=== PATIENT | female | born 1980 | race Caucasian/White ===

== ENCOUNTER 2017-03-27 14:28 | Inpatient (IN) ==
[2017-03-27] MEDS ORDERED: Ondansetron 4 MG/2 ML VIAL IV ONE (14:36)
[2017-03-27] MEDS ORDERED: *HR* HYDROmorphone (PF) 1 MG/ML SYRINGE IV ONE (14:36)
[2017-03-27] MEDS ORDERED: Famotidine 20 MG/2 ML VIAL IVP ONE (14:37)
--- NOTE | 2017-03-27 14:41 | Emergency Department Note ---
Disposition Clinical Impression: Alcohol abuse Alcohol withdrawal Qualifiers: Complication of substance-induced condition: uncomplicated Qualified Code(s): F10.230 - Alcohol dependence with withdrawal, uncomplicated Abdominal pain Qualifiers: Abdominal location: unspecified location Qualified Code(s): R10.9 - Unspecified abdominal pain Disposition: Admitted As Inpatient Condition: Fair Referrals: NO,PCP [Primary Care Provider] - Forms: Work/School Release, ED Satisfaction Letter Time of Disposition: 15:42 Abdominal Pain HPI - General Chief Complaint: ED Abdominal Pain Stated Complaint: abd pain Time Seen by Provider: 03/27/17 14:30 Source: patient, EMS Mode of arrival: EMS Limitations: no limitations Nursing Notes Reviewed: Yes Vital Signs Reviewed: Yes - History of Present Illness HPI Narrative: Patient reports a 6 day history of upper abdominal pain. Associated nausea and vomiting. She states she has never had pain like this before. Mitz to drinking a half liter of vodka daily for the past 5 years. When she stops drinking she becomes very shaky. Pt Subjective Complaint: abdominal pain Onset (ago): day(s) Consistency: constant Location: epigastric Pain Severity: severe Pain Scale: 10 Quality: aching Radiation: none Migration to: no migration Improves with: nothing Worsens with: nothing Associated symptoms: Reports: nausea, vomiting Treatments prior to arrival: none - Related Data Previous Rx's Medication Instructions Recorded Buspirone HCl [Buspar] 10 mg PO BID #90 tab 08/27/16 HydrOXYzine Pamoate 25 mg PO TID PRN #90 capsule 08/27/16 Prazosin [Minipress] 1 mg PO HS #30 capsule 08/27/16 Allergies Allergy/AdvReac Type Severity Reaction Status Date / Time ibuprofen [From Motrin] Allergy Swelling Verified 03/04/16 22:31 of Lip/Tongue/Throat All systems ED: reviewed and negative except as stated. Constitutional: Reports: as per HPI Eyes: Reports: as per HPI ENT ED: Reports: as per HPI Cardiovascular: Reports: as per HPI Respiratory: Reports: as per HPI Gastrointestinal: Reports: abdominal pain, nausea, vomiting Genitourinary: Reports: as per HPI Musculoskeletal: Reports: as per HPI Integumentary: Reports: as per HPI Neurological: Reports: as per HPI Psychiatric: Reports: as per HPI Endocrine: Reports: as per HPI Hematological/Lymphatic: Reports: as per HPI Allergic/Immunologic: Reports: as per HPI Abdominal Pain PMH - Past Medical History Medical history: Reports: asthma, other Female Surgical History: Reports: other NUCLEAR ENGINEER history: Reports: no NUCLEAR ENGINEER history, bilateral tubal ligation Psychiatric history: Reports: anxiety, depression, prior suicide attempt, previous psychiatric hospitalization - Social History Smoking status: Heavy tobacco smoker Alcohol use: Reports: heavy, recent Drug use: Reports: none Physical Exam She has alcohol on her breath. Appears intoxicated - General Limitations: no limitations General appearance: alert, anxious - Head Head exam: atraumatic - Eye Eye exam: Present: normal appearance - ENT ENT exam: normal exam - Neck Neck exam: Present: normal inspection - Chest Chest inspection: Present: normal inspection, symmetric chest wall rise - Cardiovascular Cardiovascular exam: Present: tachycardia, normal heart sounds - Abdominal Exam Abdominal exam: Present: soft, tenderness (tender in the epigastrium without guarding or rebound), normal bowel sounds Abdominal tenderness: Absent: RUQ, RLQ - Rectal Exam Rectal exam: Present: deferred - Extremities Exam Extremities exam: Present: normal inspection - Neurological Exam Neurological exam: Present: alert, oriented X3, CN II-XII intact - Psychiatric Psychiatric exam: Present: anxious - Skin Skin exam: Present: warm, dry, intact Course Course Narrative: Patient presents with epigastric pain. She has a long-standing history of alcohol abuse. She admits to being an alcoholic. The differential diagnosis includes such as alcohol-induced gastritis, peptic ulcer disease, pancreatitis, colic. Workup initiated - Reevaluation(s) Reevaluation #1: Patient resting more comfortably. She requests "something for alcohol withdrawal." Valium ordered Reevaluation #2: reassessed. She states she feels as if she is going to go through alcohol withdrawal and does not want to go home "go through withdrawals alone." She lives at home alone. She continues to have abdominal pain. I will request admission to the medicine service Reevaluation #3: Dr. Meade accepts admission to the medicine service Vital Signs Temperature 98.8 F 03/27/17 14:29 Pulse Rate 118 03/27/17 14:29 Respiratory Rate 18 03/27/17 14:29 Blood Pressure 142/102 03/27/17 14:29 O2 Sat by Pulse Oximetry 93 03/27/17 14:29 Temperature 98.8 F 03/27/17 14:29 Pulse Rate 118 03/27/17 14:29 Respiratory Rate 18 03/27/17 14:29 Blood Pressure 142/102 03/27/17 14:29 O2 Sat by Pulse Oximetry 93 03/27/17 14:29 Oxygen Delivery Oxygen Delivery Room Air Abdominal Pain - Lab Data Lab results reviewed: Yes I reviewed the patient's lab results. Result diagrams: 03/27/17 14:45 03/27/17 14:45 Lab Results 03/27/17 03/27/17 03/27/17 Range/Units 14:45 14:45 14:45 WBC 5.9 (4.3-11.1) K/mcL RBC 4.56 (3.82-4.97) M/mcL Hgb 14.6 (11.5-15.4) g/dL Hct 43.1 (35.3-44.9) % MCV 94.5 (83.0-100.0) fL MCH 32.0 (28.0-33.3) pg MCHC 33.9 (31.6-35.5) g/dL RDW 12.7 (11.5-14.5) % Plt Count 217 (140-400) K/mcL MPV 9.4 (9.4-12.4) fL Immature Gran % 0.2 (0-4) % Seg Neutrophils % 34.7 % Lymphocytes % 53.7 % Monocytes % 10.1 % Eosinophils % 0.8 % Basophils % 0.5 % Neutrophils # 2.1 (1.6-8.9) K/mcL Lymphocytes # 3.2 (0.6-4.6) K/mcL Monocytes # 0.6 (0.0-1.3) K/mcL Eosinophils # 0.1 (0.0-0.6) K/mcL Basophils # 0.0 (0.0-0.2) K/mcL PT 10.5 (9.4-12.1) Seconds INR 1.0 Sodium (136-145) mEq/L Potassium (3.5-4.5) mEq/L Chloride (98-109) mEq/L Carbon Dioxide (19-29) mEq/L BUN (7-20) mg/dL Creatinine (0.57-1.11) mg/dL Est GFR ( Amer) (> 60) Est GFR (Non-Af Amer) (> 60) BUN/Creatinine Ratio (6-26) Glucose (70-99) mg/dL Calculated Osmolality (280-300) Calcium (8.6-10.8) mg/dL Magnesium (1.6-2.6) mg/dL Total Bilirubin (0.2-1.2) mg/dL AST (5-34) Units/L ALT (0-55) Units/L Alkaline Phosphatase (38-126) Units/L Serum Total Protein (6.0-8.3) g/dL Albumin (3.5-5.0) g/dL Globulin (2.4-3.5) g/dL Albumin/Globulin Ratio (1.1-2.2) Amylase (25-125) Units/L Lipase (8-78) Units/L Serum , Qual (Negative) Urine Color Yellow (Yellow) Urine Clarity Clear (Clear) Urine pH 6.5 (5.0-8.0) pH Units Ur Specific Abbot 1.007 L (1.010-1.025) Urine Protein 30 H (Neg-Trace) mg/dL Urine Glucose (UA) Normal (Normal) mg/dL Urine Ketones Negative (Negative) mg/dL Urine Blood Negative (Negative) Urine Nitrite Negative (Negative) Urine Bilirubin Negative (Negative) Urine Urobilinogen Normal (Normal) mg/dL Ur Leukocyte Esterase Negative (Negative) Urine Microscopic RBC 0-3 (0-3) per hpf Urine Microscopic WBC 0-3 (0-3) per hpf Ur Squamous Epith Cells Many H (None-Few) per lpf Urine Bacteria None Seen (None-Few) per hpf Hyaline Casts None Seen (None-Few) per lpf 03/27/17 03/27/17 Range/Units 14:45 14:45 WBC (4.3-11.1) K/mcL RBC (3.82-4.97) M/mcL Hgb (11.5-15.4) g/dL Hct (35.3-44.9) % MCV (83.0-100.0) fL MCH (28.0-33.3) pg MCHC (31.6-35.5) g/dL RDW (11.5-14.5) % Plt Count (140-400) K/mcL MPV (9.4-12.4) fL Immature Gran % (0-4) % Seg Neutrophils % % Lymphocytes % % Monocytes % % Eosinophils % % Basophils % % Neutrophils # (1.6-8.9) K/mcL Lymphocytes # (0.6-4.6) K/mcL Monocytes # (0.0-1.3) K/mcL Eosinophils # (0.0-0.6) K/mcL Basophils # (0.0-0.2) K/mcL PT (9.4-12.1) Seconds INR Sodium 143 (136-145) mEq/L Potassium 3.2 L (3.5-4.5) mEq/L Chloride 112 H (98-109) mEq/L Carbon Dioxide 17 L (19-29) mEq/L BUN 14 (7-20) mg/dL Creatinine 0.72 (0.57-1.11) mg/dL Est GFR ( Amer) > 60 (> 60) Est GFR (Non-Af Amer) > 60 (> 60) BUN/Creatinine Ratio 19 (6-26) Glucose 138 H (70-99) mg/dL Calculated Osmolality 299 (280-300) Calcium 8.0 L (8.6-10.8) mg/dL Magnesium 2.3 (1.6-2.6) mg/dL Total Bilirubin 0.4 (0.2-1.2) mg/dL AST 72 H (5-34) Units/L ALT 51 (0-55) Units/L Alkaline Phosphatase 89 (38-126) Units/L Serum Total Protein 7.4 (6.0-8.3) g/dL Albumin 3.7 (3.5-5.0) g/dL Globulin 3.7 H (2.4-3.5) g/dL Albumin/Globulin Ratio 1.0 L (1.1-2.2) Amylase 41 (25-125) Units/L Lipase 114 H (8-78) Units/L Serum , Qual Negative (Negative) Urine Color (Yellow) Urine Clarity (Clear) Urine pH (5.0-8.0) pH Units Ur Specific Abbot (1.010-1.025) Urine Protein (Neg-Trace) mg/dL Urine Glucose (UA) (Normal) mg/dL Urine Ketones (Negative) mg/dL Urine Blood (Negative) Urine Nitrite (Negative) Urine Bilirubin (Negative) Urine Urobilinogen (Normal) mg/dL Ur Leukocyte Esterase (Negative) Urine Microscopic RBC (0-3) per hpf Urine Microscopic WBC (0-3) per hpf Ur Squamous Epith Cells (None-Few) per lpf Urine Bacteria (None-Few) per hpf Hyaline Casts (None-Few) per lpf - Radiology Data Radiology results reviewed: Yes I reviewed the patient's radiology results. - EKG Data EKG attestation: Yes I reviewed and interpreted this EKG. EKG results narrative: Sinus rhythm rate 98 when necessary 173 QRS 85 QT/QTC 339/394. No acute ST segment elevation. Compared to previous dated 08/24/16
[2017-03-27 14:57] LABS: Bilirubin,Urine Negative (Negative); Blood,Urine Negative (Negative); Clarity,Urine Clear (Clear); Color,Urine Yellow (Yellow); Glucose,Urine (UA) Normal (Normal); Ketones,Urine Negative (Negative); Leukocyte Esterase,Urine Negative (Negative); Nitrite,Urine Negative (Negative); PH,Urine 6.5 pH Units (5.0-8.0); Protein,Urine 30 mg/dL (Neg-Trace); Specific Gravity,Urine 1.007 (1.010-1.025); Urobilinogen,Urine Normal (Normal)
[2017-03-27 14:59] LABS: Bacteria,Urine None Seen per hpf (None-Few); Hyaline Casts,Urine None Seen per lpf (None-Few); RBC,Urine 0-3 per hpf (0-3); Squamous Epithelial Cell,Urine Many per lpf (None-Few); WBC,Urine 0-3 per hpf (0-3)
[2017-03-27 15:02] LABS: Basophils % 0.5 %; Eosinophils # 0.1 K/mcL (0.0-0.6); Eosinophils % 0.8 %; Hematocrit 43.1 % (35.3-44.9); Hemoglobin 14.6 g/dL (11.5-15.4); Immature Granulocytes % 0.2 % (0-4); Lymphocytes # 3.2 K/mcL (0.6-4.6); Lymphocytes % 53.7 %; Mean Corpuscular HGB Conc 33.9 g/dL (31.6-35.5); Mean Corpuscular Volume 94.5 fL (83.0-100.0); Mean Platelet Volume 9.4 fL (9.4-12.4); Monocytes # 0.6 K/mcL (0.0-1.3); Monocytes % 10.1 %; Neutrophils # 2.1 K/mcL (1.6-8.9); Platelet Count 217 K/mcL (140-400); Red Blood Count 4.56 M/mcL (3.82-4.97); Red Cell Distribution Width 12.7 % (11.5-14.5); Segmented Neutrophils % 34.7 %
[2017-03-27 15:03] LABS: Prothrombin Time 10.5 Seconds (9.4-12.1)
[2017-03-27 15:19] LABS: Alanine Aminotransferase 51 Units/L (0-55); Albumin 3.7 g/dL (3.5-5.0); Alkaline Phosphatase 89 Units/L (38-126); Amylase 41 Units/L (25-125); Aspartate Amino Transferase 72 Units/L (5-34); BUN/Creatinine Ratio 19 (6-26); Bilirubin,Total 0.4 mg/dL (0.2-1.2); Blood Urea Nitrogen 14 mg/dL (7-20); Carbon Dioxide 17 mEq/L (19-29); Chloride 112 mEq/L (98-109); Globulin 3.7 g/dL (2.4-3.5); Glucose 138 mg/dL (70-99); Lipase 114 Units/L (8-78); Magnesium 2.3 mg/dL (1.6-2.6); Osmolality,Calculated 299 (280-300); Potassium 3.2 mEq/L (3.5-4.5); Sodium 143 mEq/L (136-145); Total Protein 7.4 g/dL (6.0-8.3); eGFR For African Americans > 60 (> 60); eGFR For Non-African Americans > 60 (> 60)
[2017-03-27] MEDS ORDERED: diazePAM 10 MG/2 ML SYRINGE IVP ONE (15:26)
[2017-03-27 15:54] LABS: Ethanol 273 mg/dL (0-10)
[2017-03-27] MEDS ORDERED: Naloxone 0.4 MG/ML INJ IVP PRN (16:24)
[2017-03-27] MEDS ORDERED: Ondansetron ODT 4 MG TAB.RAPDIS SL PRN (16:24)
[2017-03-27] MEDS ORDERED: *HR* LORazepam 2 MG/ML VIAL IVP PRN (16:24)
--- NOTE | 2017-03-27 17:43 | Internal Med History&Physical ---
<Marni Morelos - Last Filed: 03/27/17 18:17> Date of Encounter: 03/27/17 Time of Encounter: 17:42 Assessment and Plan (1) Abdominal pain Current visit: Yes Status: Acute that started day prior to admission. Lipase 114. ABD CT with layering sludge in the gallbladder, no radiographic evidence of gall stones or cholecystitis. Clear liquid diet, pain control, IV fluids, trend lipase Qualifiers: Abdominal location: unspecified location Qualified Code(s): R10.9 - Unspecified abdominal pain (2) Alcohol abuse Current visit: Yes Status: Acute reported drinking 1/2 liter vodka/day for the last 5 years. Last drink of day of admission. BAL 273. Monitor with CIWA (3) DVT prophylaxis Current visit: No Status: Acute heparin Internal Medicine - H&P: HPI Chief complaint: abdomina pain Admitted From: Home History of present illness: Ms. Sher is a 36 year old female with no significant PMH who presented to [facility] on 03/27/2017 with complaints of ABD and alcohol withdrawal. She was admitted for medically supervised alcohol withdrawal and further work-up and treatment of abdominal pain. Information obtained from chart review and patient report. She is acutely intoxicated and difficult to obtain information from. She tells me that last drank today but it wasn't much. Says she is having ABD pain. She is clearly intoxicated and unable to provide details. She endorses abdominal pain, RUQ that started yesterday, rates 10/10 and nothing helps or makes worse. No SOB, CP Past Med Surg Social Fam HX - Past Medical History Medical history: asthma, other Psychiatric history: anxiety, depression, prior suicide attempt, previous psychiatric hospitalization - Past Surgical History Surgical History: non-contributory, other - Social History Smoking Status: Heavy tobacco smoker Smokeless Tobacco Status: No Alcohol use: heavy, recent Drug use: none - Family History Maternal Grandmother Living Status: Hx Family Cancer: Yes (throat cancer) - Additional Family History Additional family history: reviewed and noncontributory Internal Medicine - H&P: Meds Multivit with Calcium,Iron,Min [One Daily Women's] 1 each PO DAILY 03/27/17 [ History] Potassium 99 mg PO DAILY 03/27/17 [History] Vitamin B Complex Vit C No.3 [B Complex with Vitamin C] 1 each PO DAILY [History] Allergies ibuprofen [From Motrin] Allergy (Verified 03/04/16 22:31) Swelling of Lip/Tongue/Throat All Systems PM: A 10-system review of systems was performed and is negative for pertinent findings except as documented above in the HPI. - Constitutional Constitutional: no chills, no fever(s), no night sweats - EENT Eyes: no change in vision, no discharge, no pain, no photophobia Ears: no ear discharge, no ear pain, no tinnitus Nose, mouth and throat: no dysphagia, no nasal discharge, no neck pain, no sore throat - Cardiovascular Cardiovascular ROS IM: no chest pain, no diaphoresis, no dyspnea, no lightheadedness, no palpitations, no syncope - Respiratory Respiratory: no cough, no dyspnea, no wheezing, no excessive phlegm production - Gastrointestinal Gastrointestinal: no diarrhea, no hematemesis, no hematochezia, no melena, no nausea, no vomiting - Genitourinary Genitourinary: no change in urinary stream, no dysuria, no flank pain, no hematuria - Musculoskeletal Musculoskeletal ROS IM: no numbness, no tingling - Integumentary Integumentary IM: no rash, no unusual bruising - Neurological Neurological ROS: no confusion, no convulsions, no focal weakness, no numbness, no tingling, no tremor(s) - Psychiatric Psychiatric: anxiety, difficulty concentrating - Hematologic/Lymphatic Hematologic/Lymphatic: no easy bruising - Constitutional Vitals: Temp Pulse Resp BP Pulse Ox 98.8 F 88 16 127/92 97 03/27/17 14:29 03/27/17 16:54 03/27/17 16:59 03/27/17 16:59 03/27/17 16:54 General appearance: Present: disheveled, A&O X 3 - Head Head exam: Present: atraumatic, normocephalic - Eye Eye exam: Present: PERRL, conjuntiva pink, sclera anicteric Pupils: Present: PERRL - Neck Neck exam general surgery: Present: supple, trachea midline. Absent: lymphadenopathy - Respiratory Respiratory exam: Present: CTAB. Absent: accessory muscle use, rales, rhonchi, wheezes - Cardiovascular Cardiovascular exam: Present: RRR, +S1, +S2. Absent: diastolic murmur, gallop, rubs, systolic murmur - GI/Abdominal GI/Abdominal exam: Present: normal bowel sounds, soft, tenderness, no peritoneal signs. Absent: distended Additional comments: LUQ tenderness - Extremities Exam Extremities exam: Present: warm, radial pulses palpable and symetrical. Absent : calf tenderness, cyanotic, pedal edema - Neurological Exam Neurological exam: Present: CN II-XII intact, oriented X3, no focal deficits. Absent: pronater drift, facial droop, speech deficit - Skin Skin exam: Present: dry, intact Internal Med - H&P Results - Labs CBC & Chem 7: 03/27/17 14:45 03/27/17 14:45 <Brandee Meade - Last Filed: 03/27/17 18:49> Date of Encounter: 03/27/17 Time of Encounter: 18:45 Internal Medicine - H&P: HPI History of present illness: Ms. Sher is a 36 year old female All Systems PM: A 10-system review of systems was performed and is negative for pertinent findings except as documented above in the HPI. - Constitutional Vitals: Temp Pulse Resp BP Pulse Ox 98.2 F 80 16 119/80 94 03/27/17 17:44 03/27/17 17:44 03/27/17 17:44 03/27/17 17:44 03/27/17 17:44 Internal Med - H&P Results - Labs CBC & Chem 7: 03/27/17 14:45 03/27/17 14:45 - Attending Attestation I examined this patient and my medical decision-making was reviewed with the nurse practitioner. I agree with the documented history of present illness, review of systems, past medical, surgical social and family histories and examination findings, disposition and treatment plan as described above except to any changes set forth below. 36-year-old female patient with history of alcohol abuse presented to the ER with acute abdominal pain. This has been going on for about 6 days now. Pain is located in the epigastric and umbilicus region. It feels like it is radiating deep into her. Associated with nausea and vomiting. She has never had similar kind of pain before. The patient was also trying to cut down her alcohol intake on her own and complains of tremors and shakes. Denies any fever or chills or night sweats. Denies any hematemesis. Blood work shows mild elevation in lipase. CT of the abdomen and pelvis shows biliary sludge but no pancreatic inflammation nor gallstones or signs of cholecystitis. Acute intractable abdominal pain in the epigastric region: Could be related to alcohol gastritis and esophagitis. Patient also has mild elevation in lipase and could be recovering from pancreatitis. Keep nothing by mouth. IV hydration. IV narcotic pain medications. High risk for complications. Antinausea medications as needed. Alcohol abuse and alcohol withdrawal: Monitor for signs of alcohol withdrawal. Place patient on CIWA protocol. magazine worker consult. This document has been at least partially created by Airtime recognition technology by Dr. Meade. Errors in grammar, wording or other phrases may exist. If errors are found after the documentation is signed, they will be addressed individually in the addendum section of this document when appropriate.
[2017-03-27] MEDS: 0.9 % Sodium Chloride 1,000 ML IVC SCH (18:35)
[2017-03-27] MEDS: Thiamine (B-1) 100 MG, Folic Acid 1 MG, MVI, adult with vitamin K 10 ML in 0.9 % Sodi... IVPB SCH (18:36)
[2017-03-27] MEDS ORDERED: Nicotine 21 MG PATCH.TD24 TD ONE ×2 (18:48)
[2017-03-27] MEDS: *HR* Morphine 2 MG/ML SYRINGE IVP PRN (18:56)
[2017-03-27] MEDS ORDERED: Chloraseptic Spray 177 ML BOTTLE MM PRN (20:13)
[2017-03-27] MEDS: Ondansetron 4 MG/2 ML VIAL IVP PRN (21:10)
[2017-03-27] MEDS: *HR* LORazepam 2 MG/ML VIAL IVP PRN (21:10)
[2017-03-28] MEDS: *HR* LORazepam 2 MG/ML VIAL IVP PRN ×4 (03:21→18:43)
[2017-03-28] MEDS: Ondansetron 4 MG/2 ML VIAL IVP PRN (03:22)
[2017-03-28 06:46] LABS: Basophils % 0.8 %; Eosinophils # 0.1 K/mcL (0.0-0.6); Eosinophils % 1.3 %; Immature Granulocytes % 0.3 % (0-4); Lymphocytes # 1.9 K/mcL (0.6-4.6); Lymphocytes % 47.6 %; Mean Corpuscular HGB Conc 33.3 g/dL (31.6-35.5); Mean Corpuscular Hemoglobin 31.6 pg (28.0-33.3); Mean Corpuscular Volume 94.7 fL (83.0-100.0); Mean Platelet Volume 9.3 fL (9.4-12.4); Monocytes # 0.4 K/mcL (0.0-1.3); Monocytes % 9.4 %; Neutrophils # 1.6 K/mcL (1.6-8.9); Platelet Count 144 K/mcL (140-400); Red Blood Count 4.12 M/mcL (3.82-4.97); Red Cell Distribution Width 12.6 % (11.5-14.5); Segmented Neutrophils % 40.6 %
[2017-03-28 06:59] LABS: Alanine Aminotransferase 46 Units/L (0-55); Albumin 3.4 g/dL (3.5-5.0); Alkaline Phosphatase 93 Units/L (38-126); Aspartate Amino Transferase 68 Units/L (5-34); BUN/Creatinine Ratio 18 (6-26); Blood Urea Nitrogen 14 mg/dL (7-20); Calcium 8.2 mg/dL (8.6-10.8); Carbon Dioxide 22 mEq/L (19-29); Chloride 111 mEq/L (98-109); Globulin 3.5 g/dL (2.4-3.5); Glucose 70 mg/dL (70-99); Osmolality,Calculated 295 (280-300); Potassium 4.2 mEq/L (3.5-4.5); Sodium 143 mEq/L (136-145); Total Protein 6.9 g/dL (6.0-8.3); eGFR For African Americans > 60 (> 60); eGFR For Non-African Americans > 60 (> 60)
[2017-03-28 07:01] LABS: Bilirubin,Total 0.8 mg/dL (0.2-1.2)
[2017-03-28] MEDS: 0.9 % Sodium Chloride 1,000 ML IVC SCH ×2 (09:24→22:30)
[2017-03-28] MEDS: Pantoprazole 40 MG VIAL IVP SCH (09:25)
[2017-03-28 10:18] LABS: Amphetamine Screen,Urine Negative ng/mL (Cutoff=1000); Barbiturate Screen,Urine Negative ng/mL (Cutoff=200); Benzodiazepines Screen,Urine Negative ng/mL (Cutoff=200); Cannabinoid Screen,Urine Negative ng/mL (Cutoff = 50); Cocaine Screen,Urine Negative ng/mL (Cutoff= 300); Opiate Screen,Urine Negative ng/mL (Cutoff=300); Phencyclidine Screen,Urine Negative ng/mL (Cutoff=25)
--- NOTE | 2017-03-28 11:21 | Internal Med Progress Note ---
<Rahul Lyle - Last Filed: 03/28/17 11:18> Date of Encounter: 03/28/17 Time of Encounter: 11:18 - Assessment and plan (1) Alcohol withdrawal Current Visit: Yes Status: Acute Assessment and plan: She had positive ETOH on admission. However can still have withdrawel if consuming large quanitities of ETOH. Currently on CIWA but I am worried she may worsen as she is quite tremulous and drinks a large amount of alcohol will add scheduled Librium Continue thiamine and folate. advise cessation. Continue with [facility]. continue to monitor closely. May need to increase Librium if not improving. May also consider adding clonidine as an adjuvant as well. Qualifiers: Complication of substance-induced condition: uncomplicated Qualified Code(s ): F10.230 - Alcohol dependence with withdrawal, uncomplicated (2) Alcohol abuse Current Visit: Yes Status: Acute Assessment and plan: as stated above. (3) Abdominal pain Current Visit: Yes Status: Acute Assessment and plan: resolved. Likely gastritis. No active bleeding or clinical indication to indicate GI bleed. CT unremarkable. Lipase mildly elevated. No need to repeat as her symptoms have resolved. Qualifiers: Abdominal location: unspecified location Qualified Code(s): R10.9 - Unspecified abdominal pain - Subjective Interval history: No major events overnight. PAtietn states she feels that she is withdrawing from alcohol. She states that she drinks about half a gallon of vodka daily. States she goes to [facility] 3 times a week but has " fallen off the wagon this week). She states her abdominal pain has resolved. She complains of having a loose bowel movement this AM. No blood or melena. No recent antibiotics. - Constitutional Vitals: Temp Pulse Resp BP Pulse Ox 99.2 F 87 16 135/88 96 03/28/17 11:12 03/28/17 11:12 03/28/17 11:12 03/28/17 11:12 03/28/17 11:12 General appearance: Present: disheveled, A&O X 3 - Head Head exam: Present: atraumatic, normocephalic - Eye Eye exam: Present: PERRL, conjuntiva pink, sclera anicteric Pupils: Present: PERRL - Neck Neck exam general surgery: Present: supple, trachea midline. Absent: lymphadenopathy - Respiratory Respiratory exam: Present: CTAB. Absent: accessory muscle use, rales, rhonchi, wheezes - Cardiovascular Cardiovascular exam: Present: RRR, +S1, +S2. Absent: diastolic murmur, gallop, rubs, systolic murmur - GI/Abdominal GI/Abdominal exam: Present: normal bowel sounds, soft, no peritoneal signs. Absent: distended, tenderness - Extremities Exam Extremities exam: Present: warm, radial pulses palpable and symetrical. Absent : calf tenderness, cyanotic, pedal edema - Neurological Exam Additional comments: tremulous - Skin Skin exam: Present: dry, intact Internal Medicine: Result - Labs CBC & Chem 7: 03/28/17 06:35 03/28/17 06:35 Labs: Short CBC 03/28/17 Range/Units 06:35 WBC 4.0 L (4.3-11.1) K/mcL Hgb 13.0 D (11.5-15.4) g/dL Hct 39.0 (35.3-44.9) % Plt Count 144 (140-400) K/mcL Neutrophils # 1.6 (1.6-8.9) K/mcL BMP 03/28/17 06:35 Sodium 143 Potassium 4.2 D Chloride 111 H Carbon Dioxide 22 BUN 14 Creatinine 0.78 Glucose 70 Calcium 8.2 L Liver Function 03/28/17 Range/Units 06:35 Total Bilirubin 0.8 D (0.2-1.2) mg/dL AST 68 H (5-34) Units/L ALT 46 (0-55) Units/L Alkaline Phosphatase 93 (38-126) Units/L Albumin 3.4 L (3.5-5.0) g/dL - ABG Interpretation ABG results: PT/INR, D-dimer PT 10.5 Seconds (9.4-12.1) 03/27/17 14:45 Consult Discharge Plan - Plan Referrals: Milad Schwartz MD [Non-Partnered Physician] - 04/08/17 1:00 pm (If you need to cancel your appt. please give a 24 hour notice. If you no show to this appt., you will be dismissed from the practice. Thank you) <Britton Perry - Last Filed: 04/28/17 19:20> Date of Encounter: 03/28/17 - Constitutional Vitals: Temp Pulse Resp BP Pulse Ox 98.5 F 83 16 145/94 96 03/28/17 15:54 03/28/17 15:54 03/28/17 15:54 03/28/17 15:54 03/28/17 15:54 Internal Medicine: Result - Labs CBC & Chem 7: 03/28/17 06:35 03/28/17 06:35 Labs: Short CBC 03/28/17 Range/Units 06:35 WBC 4.0 L (4.3-11.1) K/mcL Hgb 13.0 D (11.5-15.4) g/dL Hct 39.0 (35.3-44.9) % Plt Count 144 (140-400) K/mcL Neutrophils # 1.6 (1.6-8.9) K/mcL BMP 03/28/17 06:35 Sodium 143 Potassium 4.2 D Chloride 111 H Carbon Dioxide 22 BUN 14 Creatinine 0.78 Glucose 70 Calcium 8.2 L Liver Function 03/28/17 Range/Units 06:35 Total Bilirubin 0.8 D (0.2-1.2) mg/dL AST 68 H (5-34) Units/L ALT 46 (0-55) Units/L Alkaline Phosphatase 93 (38-126) Units/L Albumin 3.4 L (3.5-5.0) g/dL - ABG Interpretation ABG results: PT/INR, D-dimer PT 10.5 Seconds (9.4-12.1) 03/27/17 14:45 - Attending Attestation I examined this patient and my medical decision-making was reviewed with the Resident Physician, Dr. Lyle. I agree with the documented findings, disposition and treatment plan as described except to the extent set forth below. She reports nausea and vomiting. Continue alcohol withdrawal protocol. Start Librium 25 mg every 8 hours and taper every 48 hours. Zofran for nausea. Clear liquid diet. I suspect gastritis. On exam she appears tremulous heart is regular S1-S2. Lungs are clear. Abdomen is soft mildly tender.
[2017-03-28] MEDS ORDERED: Nicotine 21 MG PATCH.TD24 TD ONE ×2 (16:02→20:40)
[2017-03-28] MEDS: Thiamine (B-1) 100 MG, Folic Acid 1 MG, MVI, adult with vitamin K 10 ML in 0.9 % Sodi... IVPB SCH (17:37)
--- NOTE | 2017-03-28 17:42 | Electrocardiograph Report ---
[address] [address] Test Date: 2017-03-27 Pat Name: Domi Sher Department: 102 Room: 3A Gender: F Ginseng Farmer: [facility] : 1980 Requested By: Arnav Dixon Order Number: [id number] Reading MD: Marisa Mendez Measurements Intervals [place] Rate: 98 P: 64 MD: 173 QRS: 74 QRSD: 85 T: 72 QT: 339 QTc: 394 Interpretive Statements SINUS RHYTHM Electronically Signed On 03-28-2017 17:41:27 EDT by Marisa Mendez
[2017-03-29 03:44] LABS: Basophils % 0.8 %; Eosinophils # 0.1 K/mcL (0.0-0.6); Eosinophils % 2.3 %; Hematocrit 39.1 % (35.3-44.9); Hemoglobin 13.3 g/dL (11.5-15.4); Immature Granulocytes % 0.3 % (0-4); Lymphocytes % 49.6 %; Monocytes # 0.4 K/mcL (0.0-1.3); Monocytes % 8.9 %; Neutrophils # 1.5 K/mcL (1.6-8.9); Platelet Count 114 K/mcL (140-400); Red Blood Count 4.16 M/mcL (3.82-4.97); Red Cell Distribution Width 12.2 % (11.5-14.5); Segmented Neutrophils % 38.1 %
[2017-03-29] MEDS: *HR* Morphine 2 MG/ML SYRINGE IVP PRN (03:49)
[2017-03-29] MEDS: Ondansetron 4 MG/2 ML VIAL IVP PRN ×2 (03:49→20:15)
[2017-03-29 04:02] LABS: BUN/Creatinine Ratio 14 (6-26); Blood Urea Nitrogen 9 mg/dL (7-20); Carbon Dioxide 22 mEq/L (19-29); Chloride 108 mEq/L (98-109); Glucose 80 mg/dL (70-99); Magnesium 1.8 mg/dL (1.6-2.6); Osmolality,Calculated 284 (280-300); Potassium 3.4 mEq/L (3.5-4.5); Sodium 138 mEq/L (136-145); eGFR For African Americans > 60 (> 60); eGFR For Non-African Americans > 60 (> 60)
[2017-03-29] MEDS: Pantoprazole 40 MG VIAL IVP SCH (09:00)
[2017-03-29] MEDS: *HR* LORazepam 2 MG/ML VIAL IVP PRN ×3 (12:07→20:10)
--- NOTE | 2017-03-29 15:51 | Internal Med Progress Note ---
Date of Encounter: 03/29/17 Time of Encounter: 15:49 - Assessment and plan (1) Acute gastritis without bleeding Current Visit: Yes Status: Acute Assessment and plan: Zofran for nausea. Start Protonix oral. We will treat pain with acetaminophen. Qualifiers: Gastritis type: alcoholic Qualified Code(s): K29.20 - Alcoholic gastritis without bleeding (2) Tobacco abuse disorder Current Visit: Yes Status: Acute Assessment and plan: I have provided smoking cessation counseling. We will treat her with nicotine patch while in the hospital.. (3) Alcohol withdrawal Current Visit: No Status: Acute Assessment and plan: Alcohol withdrawal protocol per [facility]. Thiamine and folic acid. Continue with Librium taper. Patient is set up for inpatient alcohol rehabilitation when discharged from our hospital. Follow-up with professor of social work on Friday. Qualifiers: Complication of substance-induced condition: with unspecified complication Qualified Code(s): F10.239 - Alcohol dependence with withdrawal, unspecified (4) DVT prophylaxis Current Visit: No Status: Acute Assessment and plan: She is fairly immobile due to tremors, withdrawal and generalized deconditioning. We will use Lovenox prophylactically. (5) EtOH dependence Current Visit: No Status: Acute Assessment and plan: Plan for alcohol detox inpatient upon discharge from the hospital. Qualifiers: Substance use status: in withdrawal Complication of substance-induced condition: uncomplicated Qualified Code(s): F10.230 - Alcohol dependence with withdrawal, uncomplicated (6) Abdominal pain Current Visit: Yes Status: Acute Assessment and plan: Likely secondary to acute alcohol-induced gastritis. Continue with Protonix. Qualifiers: Abdominal location: unspecified location Qualified Code(s): R10.9 - Unspecified abdominal pain - Subjective Interval history: Patient reports severe anxiety on and off today, she becomes tearful. Reports continued abdominal discomfort in epigastric area since yesterday. - Constitutional Vitals: Temp Pulse Resp BP Pulse Ox 98.7 F 102 18 143/95 96 03/29/17 15:27 03/29/17 15:27 03/29/17 15:27 03/29/17 15:27 03/29/17 15:27 General appearance: Present: disheveled, A&O X 3 - Eye Eye exam: Present: PERRL, conjuntiva pink, sclera anicteric Pupils: Present: PERRL - Respiratory Respiratory exam: Present: CTAB. Absent: accessory muscle use, rales, rhonchi, wheezes - Cardiovascular Cardiovascular exam: Present: RRR, +S1, +S2. Absent: diastolic murmur, gallop, rubs, systolic murmur - GI/Abdominal GI/Abdominal exam: Present: normal bowel sounds, soft, no peritoneal signs. Absent: distended, tenderness - Extremities Exam Extremities exam: Present: warm, radial pulses palpable and symetrical. Absent : calf tenderness, cyanotic, pedal edema - Neurological Exam Neurological exam: Present: CN II-XII intact, oriented X3, no focal deficits. Absent: pronater drift, facial droop, speech deficit - Psychiatric Psychiatric exam: Present: anxious, depressed - Skin Skin exam: Present: dry, intact Internal Medicine: Result - Labs CBC & Chem 7: 03/29/17 03:21 03/29/17 03:21 Labs: Short CBC 03/29/17 Range/Units 03:21 WBC 3.9 L (4.3-11.1) K/mcL Hgb 13.3 (11.5-15.4) g/dL Hct 39.1 (35.3-44.9) % Plt Count 114 L (140-400) K/mcL Neutrophils # 1.5 L (1.6-8.9) K/mcL BMP 03/29/17 03:21 Sodium 138 Potassium 3.4 L Chloride 108 Carbon Dioxide 22 BUN 9 Creatinine 0.66 Glucose 80 Calcium 8.0 L - ABG Interpretation ABG results: PT/INR, D-dimer PT 10.5 Seconds (9.4-12.1) 03/27/17 14:45 Consult Discharge Plan - Plan Referrals: Milad Schwartz MD [Non-Partnered Physician] - 04/08/17 1:00 pm (If you need to cancel your appt. please give a 24 hour notice. If you no show to this appt., you will be dismissed from the practice. Thank you)
[2017-03-29] MEDS ORDERED: *HR* OxyCODONE Immed Rel 5 MG TABLET PO PRN (16:03)
[2017-03-29] MEDS: *HR* Enoxaparin 40 MG/0.4 ML SYRINGE SQ SCH (16:33)
[2017-03-29] MEDS: Thiamine (B-1) 100 MG, Folic Acid 1 MG, MVI, adult with vitamin K 10 ML in 0.9 % Sodi... IVPB SCH (16:33)
[2017-03-29] MEDS: 0.9 % Sodium Chloride 1,000 ML IVC SCH (16:35)
[2017-03-30] MEDS: Ondansetron 4 MG/2 ML VIAL IVP PRN ×2 (00:29→04:30)
[2017-03-30] MEDS: *HR* Enoxaparin 40 MG/0.4 ML SYRINGE SQ SCH (06:23)
[2017-03-30] MEDS: 0.9 % Sodium Chloride 1,000 ML IVC SCH (06:28)
[2017-03-30] MEDS: *HR* LORazepam 2 MG/ML VIAL IVP PRN (07:11)
[2017-03-30] MEDS: Nicotine 21 MG PATCH.TD24 TD SCH (09:28)
[2017-03-30] MEDS: Pantoprazole 40 MG VIAL IVP SCH (09:28)
--- NOTE | 2017-03-30 18:31 | Internal Med Progress Note ---
Date of Encounter: 03/30/17 Time of Encounter: 11:00 - Assessment and plan (1) Acute gastritis without bleeding Current Visit: Yes Status: Acute Assessment and plan: Zofran for nausea. Start Protonix oral. We will treat pain with acetaminophen. Qualifiers: Gastritis type: alcoholic Qualified Code(s): K29.20 - Alcoholic gastritis without bleeding (2) Tobacco abuse disorder Current Visit: Yes Status: Acute Assessment and plan: I have provided smoking cessation counseling. We will treat her with nicotine patch while in the hospital.. (3) Alcohol withdrawal Current Visit: No Status: Acute Assessment and plan: Alcohol withdrawal protocol per [facility]. Switch Thiamine and folic acid to oral. Increase Librium dosing to 50 mg oral every 8 hours since the previous dose was not controlling her symptoms. Continue with intravenous Ativan for uncontrolled symptoms. Patient is set up for inpatient alcohol rehabilitation when discharged from our hospital. Follow-up with [employer] school social worker on Friday. She is at high risk for morbidity and complications due to treatment with IV controlled substances. Qualifiers: Complication of substance-induced condition: with unspecified complication Qualified Code(s): F10.239 - Alcohol dependence with withdrawal, unspecified (4) DVT prophylaxis Current Visit: No Status: Acute Assessment and plan: She is fairly immobile due to tremors, withdrawal and generalized deconditioning. We will use Lovenox prophylactically. (5) EtOH dependence Current Visit: No Status: Acute Assessment and plan: Plan for alcohol detox inpatient upon discharge from the hospital. Qualifiers: Substance use status: in withdrawal Complication of substance-induced condition: uncomplicated Qualified Code(s): F10.230 - Alcohol dependence with withdrawal, uncomplicated (6) Abdominal pain Current Visit: Yes Status: Acute Assessment and plan: Likely secondary to acute alcohol-induced gastritis. We will switch to oral Protonix. Qualifiers: Abdominal location: unspecified location Qualified Code(s): R10.9 - Unspecified abdominal pain - Subjective Interval history: Patient reports severe anxiety has improved since yesterday. We increased the dose of Librium which helped. She reports improvements in her symptoms with IV Ativan. Her abdominal pain has resolved since yesterday. No nausea or vomiting. Overall she feels improved. - Constitutional Vitals: Temp Pulse Resp BP Pulse Ox 98.6 F 88 17 141/94 95 03/30/17 14:16 03/30/17 14:16 03/30/17 14:16 03/30/17 14:16 03/30/17 14:16 General appearance: Present: disheveled, A&O X 3 - Head Head exam: Present: atraumatic, normocephalic - Eye Eye exam: Present: PERRL, conjuntiva pink, sclera anicteric Pupils: Present: PERRL - Neck Neck exam general surgery: Present: supple, trachea midline. Absent: lymphadenopathy - Respiratory Respiratory exam: Present: CTAB. Absent: accessory muscle use, rales, rhonchi, wheezes - Cardiovascular Cardiovascular exam: Present: RRR, +S1, +S2. Absent: diastolic murmur, gallop, rubs, systolic murmur - GI/Abdominal GI/Abdominal exam: Present: normal bowel sounds, soft, no peritoneal signs. Absent: distended, tenderness Internal Medicine: Result - Labs CBC & Chem 7: 03/29/17 03:21 03/29/17 03:21 - ABG Interpretation ABG results: PT/INR, D-dimer PT 10.5 Seconds (9.4-12.1) 03/27/17 14:45 Consult Discharge Plan - Plan Referrals: Milad phelan MD [Non-Partnered Physician] - 04/08/17 1:00 pm (If you need to cancel your appt. please give a 24 hour notice. If you no show to this appt., you will be dismissed from the practice. Thank you)
[2017-03-31 04:17] LABS: Basophils % 0.6 %; Eosinophils # 0.1 K/mcL (0.0-0.6); Eosinophils % 2.1 %; Hemoglobin 12.6 g/dL (11.5-15.4); Immature Granulocytes % 0.2 % (0-4); Lymphocytes # 1.8 K/mcL (0.6-4.6); Lymphocytes % 38.4 %; Mean Corpuscular HGB Conc 34.1 g/dL (31.6-35.5); Mean Corpuscular Hemoglobin 32.2 pg (28.0-33.3); Mean Corpuscular Volume 94.6 fL (83.0-100.0); Mean Platelet Volume 10.5 fL (9.4-12.4); Monocytes # 0.4 K/mcL (0.0-1.3); Monocytes % 7.3 %; Neutrophils # 2.5 K/mcL (1.6-8.9); Platelet Count 104 K/mcL (140-400); Red Blood Count 3.91 M/mcL (3.82-4.97); Red Cell Distribution Width 12.3 % (11.5-14.5); Segmented Neutrophils % 51.4 %
[2017-03-31 04:34] LABS: BUN/Creatinine Ratio 10 (6-26); Blood Urea Nitrogen 7 mg/dL (7-20); Calcium 9.1 mg/dL (8.6-10.8); Carbon Dioxide 22 mEq/L (19-29); Chloride 112 mEq/L (98-109); Glucose 103 mg/dL (70-99); Magnesium 1.9 mg/dL (1.6-2.6); Osmolality,Calculated 292 (280-300); Potassium 3.7 mEq/L (3.5-4.5); Sodium 142 mEq/L (136-145); eGFR For African Americans > 60 (> 60); eGFR For Non-African Americans > 60 (> 60)
[2017-03-31] MEDS ORDERED: Acetaminophen 325 MG TABLET PO ONE (04:46)
[2017-03-31] MEDS: *HR* Enoxaparin 40 MG/0.4 ML SYRINGE SQ SCH (06:30)
[2017-03-31] MEDS: Nicotine 21 MG PATCH.TD24 TD SCH (08:47)
[2017-03-31] MEDS: Pantoprazole 40 MG VIAL IVP SCH (08:52)
[2017-03-31] MEDS ORDERED: Folic Acid 1 MG TABLET PO SCH (09:00)
[2017-03-31] MEDS ORDERED: Thiamine (B-1) 100 MG TABLET PO SCH (09:00)
[2017-03-31] MEDS: *HR* LORazepam 1 MG TABLET PO PRN ×2 (12:01→16:19)
[2017-03-31 12:51] VITALS: BP 135/89
--- NOTE | 2017-03-31 15:33 | Discharge Summary ---
<Rahul Lyle - Last Filed: 03/31/17 15:19> Date of Encounter: 03/31/17 Time of Encounter: 15:19 - Discharge Diagnosis (1) Alcohol withdrawal Status: Acute Qualifiers: Complication of substance-induced condition: uncomplicated Qualified Code(s ): F10.230 - Alcohol dependence with withdrawal, uncomplicated (2) Alcohol abuse Status: Acute (3) Abdominal pain Status: Acute Qualifiers: Abdominal location: unspecified location Qualified Code(s): R10.9 - Unspecified abdominal pain - Discharge Medications Prescriptions: Chlordiazepoxide [Librium] 50 mg PO QID #42 capsule Folic Acid 1 mg PO DAILY 30 Days Nicotine Patch [Nicoderm] 21 mg TD DAILY 30 Days Thiamine (B-1) [Vitamin B-1] 100 mg PO DAILY 30 Days Home Medications: Multivit with Calcium,Iron,Min [One Daily Women's] 1 each PO DAILY 03/27/17 [ History] Chlordiazepoxide [Librium] 50 mg PO QID #42 capsule 03/31/17 [Rx] Folic Acid 1 mg PO DAILY 30 Days 03/31/17 [Rx] Nicotine Patch [Nicoderm] 21 mg TD DAILY 30 Days 03/31/17 [Rx] Thiamine (B-1) [Vitamin B-1] 100 mg PO DAILY 30 Days 03/31/17 [Rx] Allergies/Adverse Reactions: Allergies ibuprofen [From Motrin] Allergy (Verified 03/04/16 22:31) Swelling of Lip/Tongue/Throat Date of admission: 03/27/17 16:24 Primary care physician: PCP NO Consults: 03/29/17 19:36 Consult to Occupational Therapy [CONS] Routine Comment: Evaluate, develop and implement POC Consult to Physical Therapy [CONS] Routine Comment: Evaluate, develop and implement POC Discharging clinician: Rahul Lyle Anticipated date of discharge: 03/31/17 - Patient Status Disposition: Home, Self-Care Condition: Fair Functional capacity at discharge: independent ambulation Overall status at discharge: patient is progressing back to baseline - Discharge Instructions Follow Up With: tapan,Mliad Buchanan MD [Non-Partnered Physician] - 04/08/17 1:00 pm (If you need to cancel your appt. please give a 24 hour notice. If you no show to this appt., you will be dismissed from the practice. Thank you) Additional Instructions: please follow up with your PCP. Please follow up with the Rehab center. Do not drink alcohol and take your medications together. - Diet and Activity Activity: increase activity as tolerated Diet: regular diet Hospital course: Ms. Sher is a 36 year old female who was admitted with alcohol withdrawal and abdominal pain. She would have a normal Ct of the abdomen and her symptoms would resolved. She was treated with CIWA protocol ( ativan) and scheduled librium). This AM she is doing well. No major lab or vital sign abnormalities. We did attempt to get her into inpatient rehab for her ETOH use. She was accepted but a bed is not available for another 6 days. She is medically stable. We will discharge her on Librium. I have advised her not to use with alcohol. She will be discharged home and enter rehab when a bed is available. - Time Spent with Patient Total time spent providing and/or coordinating discharge services: - Constitutional Vitals: Temp Pulse Resp BP Pulse Ox 97.8 F 93 18 135/89 98 03/31/17 12:49 03/31/17 12:49 03/31/17 12:49 03/31/17 12:49 03/31/17 12:49 General appearance: Present: disheveled, A&O X 3 - Head Head exam: Present: atraumatic, normocephalic - Eye Eye exam: Present: PERRL, conjuntiva pink, sclera anicteric Pupils: Present: PERRL - Neck Neck exam general surgery: Present: supple, trachea midline. Absent: lymphadenopathy - Respiratory Respiratory exam: Present: CTAB. Absent: accessory muscle use, rales, rhonchi, wheezes - Cardiovascular Cardiovascular exam: Present: RRR, +S1, +S2. Absent: diastolic murmur, gallop, rubs, systolic murmur - GI/Abdominal GI/Abdominal exam: Present: normal bowel sounds, soft, no peritoneal signs. Absent: distended, tenderness - Extremities Exam Extremities exam: Present: warm, radial pulses palpable and symetrical. Absent : calf tenderness, cyanotic, pedal edema - Neurological Exam Neurological exam: Present: CN II-XII intact, oriented X3, no focal deficits. Absent: pronater drift, facial droop, speech deficit - Skin Skin exam: Present: dry, intact <Ducu,Britton - Last Filed: 03/31/17 19:12> Date of Encounter: 03/31/17 - Discharge Diagnosis (1) Acute gastritis without bleeding Priority: Secondary Status: Acute Qualifiers: Gastritis type: alcoholic Qualified Code(s): K29.20 - Alcoholic gastritis without bleeding (2) Tobacco abuse disorder Priority: Secondary Status: Acute (3) Alcohol withdrawal Priority: Primary Status: Acute Qualifiers: Complication of substance-induced condition: with unspecified complication Qualified Code(s): F10.239 - Alcohol dependence with withdrawal, unspecified (4) DVT prophylaxis Priority: Secondary Status: Acute (5) EtOH dependence Priority: Secondary Status: Acute Qualifiers: Substance use status: in withdrawal Complication of substance-induced condition: uncomplicated Qualified Code(s): F10.230 - Alcohol dependence with withdrawal, uncomplicated (6) Abdominal pain Priority: Secondary Status: Acute Qualifiers: Abdominal location: unspecified location Qualified Code(s): R10.9 - Unspecified abdominal pain Date of admission: 03/27/17 16:24 Primary care physician: PCP NO Consults: 03/29/17 19:36 Consult to Occupational Therapy [CONS] Routine Comment: Evaluate, develop and implement POC Consult to Physical Therapy [CONS] Routine Comment: Evaluate, develop and implement POC Hospital course: Ms. Sher is a 36 year old female - Time Spent with Patient Total time spent providing and/or coordinating discharge services: Greater than 30 minutes (I have spent 35 minutes coordinating this discharge.) - Constitutional Vitals: Temp Pulse Resp BP Pulse Ox 97.8 F 93 18 135/89 98 03/31/17 12:49 03/31/17 12:49 03/31/17 12:49 03/31/17 12:49 03/31/17 12:49 - Attending Attestation I examined this patient and my medical decision-making was reviewed with the Resident Physician, Dr. Lyle I agree with the documented findings, disposition and treatment plan as described except to the extent set forth below. Patient is in no acute distress awake alert oriented. Heart exam reveals normal regular S1-S2. Lungs are clear. Plan: We will discharge the patient to rehabilitation with Librium taper and oral Ativan as needed for withdrawal symptoms. Librium should be tapered starting on 04/02/2017 to 25 mg every 6 hours and then halved every 2 days until the dose is 12.5 mg at which point it could be stopped.
== END 2017-03-31 17:26 | disposition home or self-care (01) | DRG 897 ==
LOC: EMEROO 14:28 → 3ANU 14:28
PROVIDERS: ADMIT Internal Medicine; ATTEND Internal Medicine

== ENCOUNTER 2017-04-06 14:40 | Observation (INO) ==
[2017-04-06] MEDS ORDERED: Folic Acid 1 MG in D5% in Water 50 ML IVPB ONE (15:09)
[2017-04-06] MEDS ORDERED: 0.9 % Sodium Chloride 1,000 ML IVC ONE (15:09)
[2017-04-06] MEDS ORDERED: Thiamine (B-1) 100 MG in D5% in Water 50 ML IVPB ONE (15:09)
--- NOTE | 2017-04-06 15:14 | Emergency Department Note ---
Disposition Clinical Impression: Alcoholic intoxication Qualifiers: Complication of substance-induced condition: uncomplicated Qualified Code(s): F10.120 - Alcohol abuse with intoxication, uncomplicated Abdominal pain Qualifiers: Abdominal location: unspecified location Qualified Code(s): R10.9 - Unspecified abdominal pain Disposition: Admitted As Inpatient Condition: Fair Referrals: Milad Schwartz MD [Primary Care Provider] - Forms: ED Satisfaction Letter Time of Disposition: 17:06 Alcohol HPI - General Chief Complaint: ED Alcohol Abuse Stated Complaint: ETOH, left rib, left arm pain Time Seen by Provider: 04/06/17 14:41 Source: patient Limitations: no limitations Nursing Notes Reviewed: Yes Vital Signs Reviewed: Yes - History of Present Illness HPI Narrative: 6-year-old who comes in with abdominal pain after drinking a bottle of vodka. Patient was hospitalized last week for abdominal pain and then alcohol withdrawal was given medications but she didn't get them filled as she didn't have the money and so she drank alcohol instead. Pt Subjective Complaint: alcohol intoxication Last Drink: just M[employer]ER Alcohol Type: Liquor Amount of alcohol consumed: 1 bottle Chronic Alcohol Use: Yes Previous Visits for Alcohol Intoxication?: Yes Recent Trauma: No Associated symptoms: Reports: nausea - Related Data Home Medications Medication Instructions Recorded Confirmed Multivit with Calcium,Iron,Min 1 each PO DAILY 03/27/17 03/27/17 [One Daily Women's] Previous Rx's Medication Instructions Recorded Chlordiazepoxide [Librium] 50 mg PO QID #42 capsule 03/31/17 Folic Acid 1 mg PO DAILY 30 Days 03/31/17 Nicotine Patch [Nicoderm] 21 mg TD DAILY 30 Days 03/31/17 Thiamine (B-1) [Vitamin B-1] 100 mg PO DAILY 30 Days 03/31/17 Allergies Allergy/AdvReac Type Severity Reaction Status Date / Time ibuprofen [From Motrin] Allergy Swelling Verified 03/04/16 22:31 of Lip/Tongue/Throat All systems ED: reviewed and negative except as stated. Constitutional: Denies: fever, chills, weakness, weight change Eyes: Denies: eye pain, eye discharge, vision change ENT ED: Denies: ear pain, throat pain, dental pain, hearing loss, epistaxis, congestion, dysphagia Cardiovascular: Denies: chest pain, palpitations, dyspnea on exertion, edema, syncope Respiratory: Denies: cough, dyspnea, wheezes, hemoptysis, stridor Gastrointestinal: Reports: abdominal pain. Denies: nausea, vomiting, diarrhea, constipation, hematemesis, melena, hematochezia Genitourinary: Denies: dysuria, frequency, hematuria, discharge Musculoskeletal: Denies: back pain, neck pain, arthralgia, myalgia Integumentary: Denies: rash, abrasion, lesions Neurological: Denies: headache, weakness, numbness, paresthesias, confusion, abnormal gait, vertigo Psychiatric: Denies: anxiety, depression, suicidal thoughts, homicidal thoughts , auditory hallucinations, visual hallucinations Endocrine: Denies: fatigue Hematological/Lymphatic: Denies: easy bleeding, easy bruising Allergic/Immunologic: Denies: facial swelling, urticaria Past Medical History - Past Medical History Medical history: Reports: asthma, other Surgical history: Reports: non-contributory, other Psychiatric history: Reports: anxiety, depression, prior suicide attempt, previous psychiatric hospitalization PUMPMAN history: Reports: no PUMPMAN history, bilateral tubal ligation - Social History Smoking Status: Heavy tobacco smoker Smokeless Tobacco Status: No Alcohol use: Reports: heavy, recent Drug use: Reports: none Physical Exam - General Limitations: no limitations General appearance: appears intoxicated - Head Head exam: atraumatic, normocephalic, normal inspection - Eye Eye exam: Present: normal appearance, PERRL, EOMI - ENT ENT exam: normal exam, normal oropharynx, mucous membranes moist - Neck Neck exam: Present: normal inspection, full ROM, trachea midline - Chest Chest inspection: Present: normal inspection, symmetric chest wall rise - Respiratory Respiratory exam: Present: normal lung sounds bilaterally - Cardiovascular Cardiovascular exam: Present: regular rate, normal rhythm, normal heart sounds - Abdominal Exam Abdominal exam: Present: soft, tenderness. Absent: guarding, rebound - Extremities Exam Extremities exam: Present: normal inspection, full ROM. Absent: tenderness, pedal edema - Expanded Lower Extremity Exam Neurovascular/Tendon exam: Absent: motor deficit, sensory deficit, tendon deficit Gait: not tested/not observed - Back Exam Back exam: Present: normal inspection, full ROM. Absent: tenderness - Neurological Exam Neurological exam: Present: alert, oriented X3 - Psychiatric Psychiatric exam: Present: normal affect, normal mood - Skin Skin exam: Present: warm, dry, intact, normal color Course - Reevaluation(s) Reevaluation #1: Ration complains of persistent abdominal pain states that she cannot eat or drink. Time: 17:47 - Consultations Consultation #1: Discussed with , quentin. Time: 17:47 Vital Signs Temperature 98.6 F 04/06/17 14:41 Pulse Rate 93 04/06/17 14:41 Respiratory Rate 20 04/06/17 14:41 Blood Pressure 118/106 04/06/17 14:41 O2 Sat by Pulse Oximetry 94 04/06/17 14:41 Temperature 98.6 F 04/06/17 14:41 Pulse Rate 88 04/06/17 16:59 Respiratory Rate 19 04/06/17 16:59 Blood Pressure 106/64 04/06/17 16:59 O2 Sat by Pulse Oximetry 96 04/06/17 15:27 Oxygen Delivery Oxygen Delivery Nasal Cannula Alcohol - Lab Data Lab results reviewed: Yes I reviewed the patient's lab results. Result diagrams: 04/06/17 15:40 04/06/17 15:40 Lab Results 04/06/17 04/06/17 04/06/17 Range/Units 15:30 15:40 15:40 WBC 5.1 (4.3-11.1) K/mcL RBC 4.40 (3.82-4.97) M/mcL Hgb 14.0 (11.5-15.4) g/dL Hct 41.8 (35.3-44.9) % MCV 95.0 (83.0-100.0) fL MCH 31.8 (28.0-33.3) pg MCHC 33.5 (31.6-35.5) g/dL RDW 13.0 (11.5-14.5) % Plt Count 285 D (140-400) K/mcL MPV 9.8 (9.4-12.4) fL Immature Gran % 0.2 (0-4) % Seg Neutrophils % 38.8 % Lymphocytes % 49.8 % Monocytes % 9.0 % Eosinophils % 1.2 % Basophils % 1.0 % Neutrophils # 2.0 (1.6-8.9) K/mcL Lymphocytes # 2.5 (0.6-4.6) K/mcL Monocytes # 0.5 (0.0-1.3) K/mcL Eosinophils # 0.1 (0.0-0.6) K/mcL Basophils # 0.1 (0.0-0.2) K/mcL PT 10.8 (9.4-12.1) Seconds INR 1.0 Sodium (136-145) mEq/L Potassium (3.5-4.5) mEq/L Chloride (98-109) mEq/L Carbon Dioxide (19-29) mEq/L BUN (7-20) mg/dL Creatinine (0.57-1.11) mg/dL Est GFR ( Amer) (> 60) Est GFR (Non-Af Amer) (> 60) BUN/Creatinine Ratio (6-26) Glucose (70-99) mg/dL Calculated Osmolality (280-300) Calcium (8.6-10.8) mg/dL Magnesium (1.6-2.6) mg/dL Lipase (8-78) Units/L Urine Color Yellow (Yellow) Urine Clarity Clear (Clear) Urine pH 6.5 (5.0-8.0) pH Units Ur Specific Keaton 1.006 L (1.010-1.025) Urine Protein Negative (Neg-Trace) mg/dL Urine Glucose (UA) Normal (Normal) mg/dL Urine Ketones Negative (Negative) mg/dL Urine Blood Moderate H (Negative) Urine Nitrite Negative (Negative) Urine Bilirubin Negative (Negative) Urine Urobilinogen Normal (Normal) mg/dL Ur Leukocyte Esterase Negative (Negative) Urine Microscopic RBC 0-3 (0-3) per hpf Urine Microscopic WBC Test Not Performed Ur Squamous Epith Cells Test Not Performed Urine Bacteria Test Not Performed Hyaline Casts Test Not Performed Ethyl Alcohol (0-10) mg/dL 04/06/17 Range/Units 15:40 WBC (4.3-11.1) K/mcL RBC (3.82-4.97) M/mcL Hgb (11.5-15.4) g/dL Hct (35.3-44.9) % MCV (83.0-100.0) fL MCH (28.0-33.3) pg MCHC (31.6-35.5) g/dL RDW (11.5-14.5) % Plt Count (140-400) K/mcL MPV (9.4-12.4) fL Immature Gran % (0-4) % Seg Neutrophils % % Lymphocytes % % Monocytes % % Eosinophils % % Basophils % % Neutrophils # (1.6-8.9) K/mcL Lymphocytes # (0.6-4.6) K/mcL Monocytes # (0.0-1.3) K/mcL Eosinophils # (0.0-0.6) K/mcL Basophils # (0.0-0.2) K/mcL PT (9.4-12.1) Seconds INR Sodium 150 H (136-145) mEq/L Potassium 3.6 (3.5-4.5) mEq/L Chloride 112 H (98-109) mEq/L Carbon Dioxide 26 (19-29) mEq/L BUN 8 (7-20) mg/dL Creatinine 0.75 (0.57-1.11) mg/dL Est GFR ( Amer) > 60 (> 60) Est GFR (Non-Af Amer) > 60 (> 60) BUN/Creatinine Ratio 11 (6-26) Glucose 84 (70-99) mg/dL Calculated Osmolality 308 H (280-300) Calcium 9.0 (8.6-10.8) mg/dL Magnesium 2.6 (1.6-2.6) mg/dL Lipase 55 (8-78) Units/L Urine Color (Yellow) Urine Clarity (Clear) Urine pH (5.0-8.0) pH Units Ur Specific Keaton (1.010-1.025) Urine Protein (Neg-Trace) mg/dL Urine Glucose (UA) (Normal) mg/dL Urine Ketones (Negative) mg/dL Urine Blood (Negative) Urine Nitrite (Negative) Urine Bilirubin (Negative) Urine Urobilinogen (Normal) mg/dL Ur Leukocyte Esterase (Negative) Urine Microscopic RBC (0-3) per hpf Urine Microscopic WBC Ur Squamous Epith Cells Urine Bacteria Hyaline Casts Ethyl Alcohol 330 H (0-10) mg/dL - Radiology Data Radiology results reviewed: Yes I reviewed the patient's radiology results. Chest X-Ray 04/06/17 15:09 IMPRESSION: No acute process. D/ / Yoseph Lin MD / Yoseph Lin MD Interpreting Provider: Yoseph Lin MD Abdomen/Pelvis CT 04/06/17 16:06 IMPRESSION: No acute findings. Simple appearing 2.3 x 2.9 cm left adnexal cyst which is almost certainly benign. D/ / Gisela Gan MD / Gisela Gan MD Interpreting Provider: Gisela Gan MD
[2017-04-06 15:57] LABS: Basophils # 0.1 K/mcL (0.0-0.2); Eosinophils # 0.1 K/mcL (0.0-0.6); Eosinophils % 1.2 %; Hematocrit 41.8 % (35.3-44.9); Immature Granulocytes % 0.2 % (0-4); Lymphocytes # 2.5 K/mcL (0.6-4.6); Lymphocytes % 49.8 %; Mean Corpuscular HGB Conc 33.5 g/dL (31.6-35.5); Mean Corpuscular Hemoglobin 31.8 pg (28.0-33.3); Mean Platelet Volume 9.8 fL (9.4-12.4); Monocytes # 0.5 K/mcL (0.0-1.3); Platelet Count 285 K/mcL (140-400); Segmented Neutrophils % 38.8 %
[2017-04-06 15:59] LABS: Bilirubin,Urine Negative (Negative); Blood,Urine Moderate (Negative); Clarity,Urine Clear (Clear); Color,Urine Yellow (Yellow); Glucose,Urine (UA) Normal (Normal); Ketones,Urine Negative (Negative); Leukocyte Esterase,Urine Negative (Negative); Nitrite,Urine Negative (Negative); PH,Urine 6.5 pH Units (5.0-8.0); Protein,Urine Negative (Neg-Trace); Specific Gravity,Urine 1.006 (1.010-1.025); Urobilinogen,Urine Normal (Normal)
[2017-04-06 16:01] LABS: Prothrombin Time 10.8 Seconds (9.4-12.1)
[2017-04-06 16:12] LABS: BUN/Creatinine Ratio 11 (6-26); Blood Urea Nitrogen 8 mg/dL (7-20); Carbon Dioxide 26 mEq/L (19-29); Chloride 112 mEq/L (98-109); Ethanol 330 mg/dL (0-10); Glucose 84 mg/dL (70-99); Lipase 55 Units/L (8-78); Magnesium 2.6 mg/dL (1.6-2.6); Osmolality,Calculated 308 (280-300); Potassium 3.6 mEq/L (3.5-4.5); Sodium 150 mEq/L (136-145); eGFR For African Americans > 60 (> 60); eGFR For Non-African Americans > 60 (> 60)
[2017-04-06 16:19] LABS: RBC,Urine 0-3 per hpf (0-3)
[2017-04-06] MEDS ORDERED: *HR* LORazepam 2 MG/ML VIAL IVP ONE (17:03)
[2017-04-06] MEDS ORDERED: Pantoprazole 40 MG VIAL IVP ONE (17:05)
[2017-04-06] MEDS ORDERED: Naloxone 0.4 MG/ML INJ IVP PRN (18:49)
[2017-04-06] MEDS ORDERED: Ondansetron ODT 4 MG TAB.RAPDIS SL PRN (18:49)
[2017-04-06 19:20] LABS: Alanine Aminotransferase 163 Units/L (0-55); Albumin 4.2 g/dL (3.5-5.0); Albumin/Globulin Ratio 1.1 (1.1-2.2); Alkaline Phosphatase 120 Units/L (38-126); Aspartate Amino Transferase 213 Units/L (5-34); Bilirubin,Direct 0.1 mg/dL (0.0-0.5); Bilirubin,Indirect 0.2 mg/dL (0.0-1.2); Bilirubin,Total 0.3 mg/dL (0.2-1.2); Globulin 3.8 g/dL (2.4-3.5)
--- NOTE | 2017-04-06 19:27 | Internal Med History&Physical ---
<Ryder Bashir - Last Filed: 04/06/17 21:00> Date of Encounter: 04/06/17 Time of Encounter: 18:30 Assessment and Plan (1) Suicidal ideation Current visit: No Status: Acute Assess: Patient states that she wishes to kill herself if someone gave her a gun. Patient has history of suicidal ideations. Patient presents as extremely distraught about current life and living situation. Patient should receive psychiatric assessment to address her current state of mind and possible plan for suicide completion. Plan: Psychiatric consult ordered and confirmed Sitter ordered and placed Patient to be closely monitored (2) Fall Current visit: Yes Status: Acute Assess: Patient returns to the ED after being treated here last week for same ETOH intoxication problem. Patient states she fell when she blacked out from intoxication and injured her right ribs and right arm. Plan: Bilateral XR of ribs ordered Falls precautions ordered Up with assist only ordered Monitor patient closely Qualifiers: Encounter type: initial encounter Qualified Code(s): W19.XXXA - Unspecified fall, initial encounter (3) Alcoholic intoxication Current visit: Yes Status: Acute Assess: Patient has history of alcohol abuse and intoxication. She was seen at [facility] last week for same problem and discharged with appropriate medications which she says she cannot afford. Patient states she currently has Medicaid insurance. She also reports that she is followed by [facility] and her counselor's name is Malinda. Ms. Sher states she was in [facility] in [place] for six months in 2011 for ETOH treatment. Patient has concurrent suicidal ideation. Plan: [facility] assessment protocol ordered Continuation of patient's Librium for anxiety and agitation related to withdrawal Will attempt to contact Malinda at [facility] 04/07/17 Psych consult ordered and confirmed Sitter ordered and placed Monitor patient closely Qualifiers: Complication of substance-induced condition: uncomplicated Qualified Code(s ): F10.120 - Alcohol abuse with intoxication, uncomplicated (4) Alcohol withdrawal Current visit: Yes Status: Acute Assess: Patient has history of alcohol abuse and intoxication. She was seen at [facility] last week for same problem and discharged with appropriate medications which she says she cannot afford. Patient states she currently has Medicaid insurance. She also reports that she is followed by [facility] and her counselor's name is Malinda. Ms. Sher states she was in [facility] in [place] for six months in 2012 for ETOH treatment. Patient has concurrent suicidal ideation. Plan: [facility] assessment protocol ordered Continuation of patient's Librium for anxiety and agitation related to withdrawal Will attempt to contact Malinda at [facility] 04/07/17 Psych consult ordered and confirmed Sitter ordered and placed [employer] consult ordered to address medication costs Monitor patient closely Qualifiers: Complication of substance-induced condition: with unspecified complication Qualified Code(s): F10.239 - Alcohol dependence with withdrawal, unspecified (5) Acute gastritis without bleeding Current visit: Yes Status: Acute Assess: Patient has current complaint of acute gastritis located left of center in epigastric area. Patient rates this pain as a 9 on a scale of 1-10. This pain is contributing to patient's current agitated state. Plan: Protonix 40 mg IVP daily ordered Diet ordered Advance as Tolerated Promethazine 12.5 mg IVP Q4HR PRN ordered for N/V Acetaminophen 500 mg. PO BID PRN ordered Continue patient's Librium 50 mg. QID for anxiety/agitation Consult to Nutrition ordered Monitor patient for pain Qualifiers: Gastritis type: alcoholic Qualified Code(s): K29.20 - Alcoholic gastritis without bleeding (6) DVT prophylaxis Current visit: Yes Status: Acute Assess: Patient placed on DVT prophylaxis due to inpatient status, bed rest status, and altered mental status. Plan: Heparin 5,000 units SQ Q12 ordered Internal Medicine - H&P: HPI Chief complaint: Alcohol abuse with intoxication Admitted From: Emergency Dept Plans for Post Hospital Care: Home History of present illness: Ms. Sher is a 36 year old female who presents from the ED with intoxication related to alcohol abuse. Patient reports during examination that she drinks approximately 1 L or more of vodka and hard liquor daily. Patient was previously seen at [facility] last week for same problem. Patient was discharged with medication orders which she did not fill stating that she could not afford them. He is currently on Medicaid insurance. Patient stated she was given a gun she would blow her head off. Patient's emotional range during examination goes from tearful to angry and agitated to remorseful. Patient also reports she fell yesterday from EtOH blackouts and injured her right arm and ribs. Patient states she believes she broke several right ribs. Patient also reports epigastric pain which is centered left of center which she rates at a 9 on a scale of 0-10. Patient reports she was in [facility] in [facility] for 6 months in 2011. She is currently followed by [facility] and states her counselor's name is Malinda. Will attempt to contact [facility] on 04[facility]07[facility]17 to discuss patient with Malinda. Patient currently has hand tremors rated 4 on the CIWA scale and agitation rated 4 on the CIWA scale. Patient to be admitted observation status with psychiatric consult ordered and confirmed and sitter ordered and placed. Protonix 40 mg IV push ordered. Continue patient's Librium 50 mg 4 times a day. Neuro assessment ordered. Assess CIWA scale ordered. Falls precautions and up with assist ordered. Elevate HOB ordered. Bilateral x-ray of ribs ordered. DVT prophylaxis ordered: Heparin 5,000 units SQ Q12. Patient and vital signs to be monitored closely. Past Med Surg Social Fam HX - Past Medical History Source: patient Medical history: asthma Psychiatric history: anxiety, depression, prior suicide attempt, previous psychiatric hospitalization - Past Surgical History Surgical History: other (LEEP, bilateral tubal ligation, wisdom teeth ) - Social History Smoking Status: Heavy tobacco smoker Smokeless Tobacco Status: No Alcohol use: heavy, recent Drug use: marijuana Occupational status: unemployed Current living situation: Home Activity Level: Independent ambulation Recent Out of Country Travel Within the Last 8 Weeks: No Exposure or Possible Exposure to Illness During Travel: No - Family History Maternal Grandmother Race: Family Member Ethnicity: Non- Living Status: Hx Family Cancer: Yes (Throat cancer) Internal Medicine - H&P: Meds Multivit with Calcium,Iron,Min [One Daily Women's] 1 each PO DAILY 03/27/17 [ History] Chlordiazepoxide [Librium] 50 mg PO QID #42 capsule 03/31/17 [Rx] Folic Acid 1 mg PO DAILY 30 Days 03/31/17 [Rx] Thiamine (B-1) [Vitamin B-1] 100 mg PO DAILY 30 Days 03/31/17 [Rx] Allergies ibuprofen [From Motrin] Allergy (Verified 03/04/16 22:31) Swelling of Lip/Tongue/Throat All Systems PM: A 10-system review of systems was performed and is negative for pertinent findings except as documented above in the HPI. - Constitutional Constitutional: falls (Related to black outs from alcohol abuse) - EENT Eyes: no change in vision, no discharge, no pain, no photophobia Ears: no ear discharge, no ear pain, no tinnitus Nose, mouth and throat: no dysphagia, no nasal discharge, no neck pain, no sore throat - Breasts Breasts: as per HPI - Cardiovascular Cardiovascular ROS IM: syncope (Related to alcohol black outs), no chest pain, no diaphoresis, no dyspnea, no lightheadedness, no palpitations - Respiratory Respiratory: no cough, no dyspnea, no wheezing, no excessive phlegm production - Gastrointestinal Gastrointestinal: abdominal pain (Patient reports abdominal pain which is epigastric and located more left of center), vomiting (Patient reports that she vomits every morning. She states it has no blood but is green) - Genitourinary Genitourinary: no change in urinary stream, no dysuria, no flank pain, no hematuria Menstruation: period heavy - Musculoskeletal Musculoskeletal ROS IM: back pain (Patient reports back pain on right side related to fall. States she thinks she broke her ribs.) - Integumentary Integumentary IM: no rash, no unusual bruising - Neurological Neurological ROS: abnormal speech (Speech slurred due to ETOH intoxication), frequent falls (Patient reports she falls often when she blacks out from drinking too much liquor), tremor(s) - Psychiatric Psychiatric: anxiety, depression, irritability, mood swings, suicidal ideation - Endocrine Endocrine IM: as per HPI - Hematologic/Lymphatic Hematologic/Lymphatic: no easy bruising - Allergic/Immunologic Allergic/Immunologic: as per HPI, seasonal rhinorrhea - Constitutional Vitals: Temp Pulse Resp BP Pulse Ox 97.8 F 96 15 112/78 96 04/06/17 19:11 04/06/17 19:11 04/06/17 19:11 04/06/17 19:11 04/06/17 19:11 General appearance: Present: disheveled, A&O X 2, severe distress - Head Head exam: Present: atraumatic, normocephalic - Eye Eye exam: Present: PERRL, conjuntiva pink, sclera anicteric Pupils: Present: PERRL - ENT ENT exam: Present: normal exam, normal external ear exam - Neck Neck exam general surgery: Present: supple, trachea midline. Absent: lymphadenopathy - Respiratory Respiratory exam: Present: CTAB. Absent: accessory muscle use, rales, rhonchi, wheezes - Cardiovascular Cardiovascular exam: Present: RRR, +S1, +S2. Absent: diastolic murmur, gallop, rubs, systolic murmur - GI/Abdominal GI/Abdominal exam: Present: diminished bowel sounds, guarding, hepatomegaly, tenderness Additional comments: Patient complains of epigastric pain on examination. Pain is located to the left of center. - Rectal Rectal exam: Present: deferred - Additional comments: exam deferred. - Extremities Exam Extremities exam: Present: warm, radial pulses palpable and symetrical. Absent : calf tenderness, cyanotic, pedal edema Additional comments: Patient has marked level of tremors in hands bilaterally when assessed for neuro deficits (CIWA scale of 4). - Back Exam Back exam: Present: vertebral tenderness (Pain present over right back area related to fall) - Neurological Exam Neurological exam: Present: altered, pronater drift, speech deficit (Slurred due to intoxication) - Psychiatric Psychiatric exam: Present: agitated, anxious, suicidal ideation Additional comments: CIWA scale of 4 for agitation upon examination. Patient alternated from tearful to angry to remorseful during examination. - Skin Skin exam: Present: abrasion (Scratches located on right side of back), normal color, warm Internal Med - H&P Results - Labs CBC & Chem 7: 04/06/17 15:40 04/06/17 15:40 - Diagnostic Studies CT scan - abdomen Additional comments: CT of the abdomen/pelvis without contrast dated 04/06/17 shows: Mild atelectasis of the lower chest. The liver, gallbladder, pancreas, and spleen are unremarkable. No findings to suggest bowel obstruction. No pneumatosis. No free air. Appendix is normal. No bladder stone and pelvis. No pelvic fluid collection. Surgical clips in the posterior lower pelvis. Simple 2.32.9 cm left adnexal cyst. No abdominal aortic aneurysm. Adrenal glands are unremarkable. Kidneys are unremarkable. No acute bony abnormality in bones/soft tissues. Chest x-ray Additional comments: 1-View CXR dated 04/06/17 shows: Lungs without acute focal process. No effusion or pneumothorax. Cardiomediastinal silhouette is without acute process. The osseous structures are without acute process. <Lobo Duncan - Last Filed: 04/07/17 07:39> Date of Encounter: 04/07/17 Internal Medicine - H&P: HPI History of present illness: Ms. Sher is a 36 year old female All Systems PM: A 10-system review of systems was performed and is negative for pertinent findings except as documented above in the HPI. - Constitutional Vitals: Temp Pulse Resp BP Pulse Ox 97.9 F 81 14 119/82 96 04/07/17 03:13 04/07/17 03:13 04/07/17 03:13 04/07/17 03:13 04/07/17 03:13 Internal Med - H&P Results - Labs CBC & Chem 7: 04/07/17 04:37 04/07/17 04:37 Labs: Short CBC 04/07/17 Range/Units 04:37 WBC 5.4 (4.3-11.1) K/mcL Hgb 10.6 L D (11.5-15.4) g/dL Hct 31.5 L (35.3-44.9) % Plt Count 214 (140-400) K/mcL BMP 04/07/17 04:37 Sodium 143 Potassium 3.1 L Chloride 111 H Carbon Dioxide 24 BUN 12 Creatinine 0.78 Glucose 89 Calcium 7.6 L D Liver Function 04/07/17 Range/Units 04:37 Total Bilirubin 0.3 (0.2-1.2) mg/dL AST 84 H (5-34) Units/L ALT 89 H (0-55) Units/L Alkaline Phosphatase 85 (38-126) Units/L Albumin 3.0 L D (3.5-5.0) g/dL - Impressions ITS Impressions Ribs X-Ray 04/06/17 19:14 IMPRESSION: No acute process. No displaced rib fracture. D/ / Yoseph Lin MD / Yoseph Lin MD Interpreting Provider: Yoseph Lin MD - Attending Attestation I examined this patient and my medical decision-making was reviewed with the Advanced Practice Nurse. I agree with the documented findings, disposition and treatment plan as described
[2017-04-06 19:49] LABS: Amylase 36 Units/L (25-125); Ethanol 235 mg/dL (0-10)
[2017-04-06] MEDS ORDERED: Nicotine 7 MG PATCH.TD24 TD ONE (20:43)
[2017-04-06] MEDS: 0.9 % Sodium Chloride 1,000 ML IVC SCH (20:54)
[2017-04-06] MEDS: *HR* Promethazine 25 MG/ML VIAL IVP PRN (20:55)
[2017-04-06] MEDS: Acetaminophen 325 MG TABLET PO PRN (20:58)
[2017-04-07] MEDS: *HR* Promethazine 25 MG/ML VIAL IVP PRN (04:56)
[2017-04-07] MEDS: Acetaminophen 325 MG TABLET PO PRN ×2 (04:57→20:14)
[2017-04-07] MEDS: *HR* Heparin 5,000 UNIT/ML VIAL SQ SCH ×2 (04:58→17:16)
[2017-04-07 05:15] LABS: Hematocrit 31.5 % (35.3-44.9); Mean Corpuscular HGB Conc 33.7 g/dL (31.6-35.5); Mean Corpuscular Hemoglobin 32.5 pg (28.0-33.3); Mean Corpuscular Volume 96.6 fL (83.0-100.0); Mean Platelet Volume 10.1 fL (9.4-12.4); Platelet Count 214 K/mcL (140-400); Red Blood Count 3.26 M/mcL (3.82-4.97); Red Cell Distribution Width 13.3 % (11.5-14.5)
[2017-04-07 05:32] LABS: Hemoglobin 10.6 g/dL (11.5-15.4)
[2017-04-07 05:48] LABS: Alanine Aminotransferase 89 Units/L (0-55); Albumin/Globulin Ratio 1.2 (1.1-2.2); Alkaline Phosphatase 85 Units/L (38-126); Aspartate Amino Transferase 84 Units/L (5-34); BUN/Creatinine Ratio 15 (6-26); Bilirubin,Total 0.3 mg/dL (0.2-1.2); Blood Urea Nitrogen 12 mg/dL (7-20); Carbon Dioxide 24 mEq/L (19-29); Chloride 111 mEq/L (98-109); Chol/HDL Ratio 5.1 (0-4.9); Cholesterol 137 mg/dL (< 200); Globulin 2.6 g/dL (2.4-3.5); Glucose 89 mg/dL (70-99); HDL Cholesterol 27 mg/dL (40-59); LDL Cholesterol,Calculated 69 mg/dL (0-99); Magnesium 1.7 mg/dL (1.6-2.6); Osmolality,Calculated 295 (280-300); Potassium 3.1 mEq/L (3.5-4.5); Sodium 143 mEq/L (136-145); Triglycerides 205 mg/dL (< 150); eGFR For African Americans > 60 (> 60); eGFR For Non-African Americans > 60 (> 60)
[2017-04-07 05:49] LABS: Calcium 7.6 mg/dL (8.6-10.8); Total Protein 5.6 g/dL (6.0-8.3)
[2017-04-07] MEDS: 0.9 % Sodium Chloride 1,000 ML IVC SCH ×2 (07:20→17:18)
[2017-04-07] MEDS: Pantoprazole 40 MG VIAL IVP SCH (07:20)
[2017-04-07] MEDS: Thiamine (B-1) 100 MG TABLET PO SCH (09:50)
[2017-04-07] MEDS: Folic Acid 1 MG TABLET PO SCH (09:50)
[2017-04-07] MEDS: Vitamin B Complex/Vit C/Vit E 1 EACH TABLET PO SCH (09:50)
[2017-04-07] MEDS: Nicotine 21 MG PATCH.TD24 TD SCH (09:50)
[2017-04-07] MEDS: Multivit/Ca/Min/Fe/FA 1 TAB TABLET PO SCH (09:50)
[2017-04-07] MEDS ORDERED: Ondansetron 4 MG/2 ML VIAL IVP PRN (13:08)
[2017-04-07] MEDS ORDERED: *HR* LORazepam 2 MG/ML VIAL IVP PRN ×2 (13:09)
--- NOTE | 2017-04-07 14:28 | Event Note ---
Date of Encounter: 04/07/17 Time of Encounter: 14:00 In following up on this patient, I was able to contact the person who is her contact at [facility] by the name of Malindatani Tay. Ms. Tay arranged for ambulance transport to [facility] for Ms. Sher on 04/06/17 after Ms. Sher called her for assistance. Ms. Tay works with the patient and follows her through the [facility] on [address] in [place]. This is a partial hospitalization program that offers respite care and programs for different types of addiction. Ms. Tay verified that Ms. Sher has bed placement at the clinic when she is able to be discharged from [place] and arrangements can be made for transport of Ms. Sher to the clinic post-discharge. Ms. Tay's number at [facility] is , [phone]. Ms. Tay is committed to helping the patient on her road to recovery and will continue to follow the patient after she is discharged from [facility].
--- NOTE | 2017-04-07 15:18 | Consult Note ---
Date of Encounter: 04/07/17 Time of Encounter: 15:15 Assessment & Recommendation (1) Suicidal ideation Current visit: No Status: Acute Assessment & Recommendation: no longer expressing suicidal ideation. Claims she tends to endorse SI when intoxicated. Wants respite treatment through [facility] where she is already linked. (2) Polysubstance (excluding opioids) dependence Current visit: No Status: Acute Assessment & Recommendation: recommend residential AOD treatment with [facility]. She is already linked with them and they can provide her with a bed-verified as of 3:20pm on 04/09/17 History of Present Illness Requesting Physician: Britton Perry MD Reason for consult: suicidal ideations History of present illness: Ms. Sher is a 36 year old female who was admitted after presenting to the ER in an intoxicated state. Currently being treated for withdrawal symptoms. Endorsed SI to primary team while intoxicated. Currently denying lethality. Stated she often endorses SI when drunk. Linked with mental health and substance abuse treatment through [facility]. Had been planning on respite/residential treatment with them when she presented to [place]. Still wants to go there to further stabilize. No longer acutely intoxicated. Denying SI and HI. No evidence of psychosis or other thought disorder on exam. CC: Britton Perry MD Past Med Surg Social Fam HX - Past Medical History Medical history: asthma - Past Psychiatric History Psychiatric history: Reports: depression, prior suicide attempt, previous psychiatric hospitalization Past psychiatric history details: reported a suicide attempt "a long time ago." Currently linked with psychiatric services through [facility]. - Past Surgical History Surgical History: other (LEEP, bilateral tubal ligation, wisdom teeth ) - Social History Smoking Status: Heavy tobacco smoker Smokeless Tobacco Status: No Alcohol use: heavy, recent Drug use: marijuana - Family History Maternal Grandmother Race: Family Member Ethnicity: Non- Living Status: Hx Family Cancer: Yes (Throat cancer) Medications & Allergies Multivit with Calcium,Iron,Min [One Daily Women's] 1 tab PO DAILY 03/27/17 [ History] Chlordiazepoxide [Librium] 50 mg PO QID #42 capsule 03/31/17 [Rx] Folic Acid 1 mg PO DAILY 30 Days 03/31/17 [Rx] Thiamine (B-1) [Vitamin B-1] 100 mg PO DAILY 30 Days 03/31/17 [Rx] Allergies ibuprofen [From Motrin] Allergy (Verified 03/04/16 22:31) Swelling of Lip/Tongue/Throat Review of Systems Constitutional: Denies: fever, chills, weakness, weight change Eyes: Denies: eye pain, vision change Ears, Nose, Throat: Denies: ear pain, throat pain, dental pain, hearing loss, congestion Cardiovascular: Denies: chest pain, palpitations, dyspnea on exertion Respiratory: Denies: cough, dyspnea, wheezes Gastrointestinal: Reports: abdominal pain, nausea. Denies: vomiting, diarrhea, constipation Genitourinary male: Denies: urgency, dysuria, frequency, genital lesions Genitourinary female: Denies: urgency, dysuria, frequency, abnormal menses, dyspareunia Musculoskeletal: Reports: back pain. Denies: joint swelling, joint pain Integumentary: Reports: lesions. Denies: rash, pruritus Neurological: Denies: headache, weakness, numbness, memory loss Endocrine: Reports: fatigue. Denies: heat or cold intolerance Hematologic/Lymphatic: Denies: easy bruising, lymphadenopathy Allergic/Immunologic: Denies: urticaria, itchy eyes Mental Status Exam Patient orientation: Yes Person, Yes Time, Yes Place Level of alertness: Alert Patient appearance: Appropriate, Disheveled Behavior: calm, cooperative Psychomotor activity: Normal Eye contact: Maintains Eye Contact Mood description: Anxious Affect description: congruent with mood, full range Speech pattern: Normal rate, Normal rhythm, Normal tone Speech volume: Normal Thought process: Linear, Goal Oriented Thought content: No Suicidal ideation, No Homicidal ideation, No Overt delusions Perceptual disturbances: No Auditory hallucinations, No Visual hallucinations Attention span: Capable of Focused Attention Memory description: Grossly Intact Patient reliability: Reliable Historian Intelligence estimate: Average Judgment: Limited Insight: Minimal Results - Vital Signs Vital signs: Temp Pulse Resp BP Pulse Ox 98.6 F 70 16 143/93 94 04/07/17 14:45 04/07/17 14:45 04/07/17 14:45 04/07/17 14:45 04/07/17 14:45 - Drug Levels and Toxicology Drug Levels and Toxicology: Drug Levels and Toxicity 04/06/17 19:29 Ethyl Alcohol 235 H - Labs Labs: Laboratory Last Values WBC 5.4 K/mcL (4.3-11.1) 04/07/17 04:37 RBC 3.26 M/mcL (3.82-4.97) L 04/07/17 04:37 Hgb 10.6 g/dL (11.5-15.4) L D 04/07/17 04:37 Hct 31.5 % (35.3-44.9) L 04/07/17 04:37 MCV 96.6 fL (83.0-100.0) 04/07/17 04:37 MCH 32.5 pg (28.0-33.3) 04/07/17 04:37 MCHC 33.7 g/dL (31.6-35.5) 04/07/17 04:37 RDW 13.3 % (11.5-14.5) 04/07/17 04:37 Plt Count 214 K/mcL (140-400) 04/07/17 04:37 MPV 10.1 fL (9.4-12.4) 04/07/17 04:37 Immature Gran % 0.2 % (0-4) 04/06/17 15:40 Seg Neutrophils % 38.8 % 04/06/17 15:40 Lymphocytes % 49.8 % 04/06/17 15:40 Monocytes % 9.0 % 04/06/17 15:40 Eosinophils % 1.2 % 04/06/17 15:40 Basophils % 1.0 % 04/06/17 15:40 Neutrophils # 2.0 K/mcL (1.6-8.9) 04/06/17 15:40 Lymphocytes # 2.5 K/mcL (0.6-4.6) 04/06/17 15:40 Monocytes # 0.5 K/mcL (0.0-1.3) 04/06/17 15:40 Eosinophils # 0.1 K/mcL (0.0-0.6) 04/06/17 15:40 Basophils # 0.1 K/mcL (0.0-0.2) 04/06/17 15:40 PT 10.8 Seconds (9.4-12.1) 04/06/17 15:40 INR 1.0 04/06/17 15:40 Sodium 143 mEq/L (136-145) 04/07/17 04:37 Potassium 3.1 mEq/L (3.5-4.5) L 04/07/17 04:37 Chloride 111 mEq/L (98-109) H 04/07/17 04:37 Carbon Dioxide 24 mEq/L (19-29) 04/07/17 04:37 BUN 12 mg/dL (7-20) 04/07/17 04:37 Creatinine 0.78 mg/dL (0.57-1.11) 04/07/17 04:37 Est GFR ( Amer) > 60 (> 60) 04/07/17 04:37 Est GFR (Non-Af Amer) > 60 (> 60) 04/07/17 04:37 BUN/Creatinine Ratio 15 (6-26) 04/07/17 04:37 Glucose 89 mg/dL (70-99) 04/07/17 04:37 Calculated Osmolality 295 (280-300) 04/07/17 04:37 Calcium 7.6 mg/dL (8.6-10.8) L D 04/07/17 04:37 Phosphorus 4.0 mg/dL (2.3-4.7) 04/07/17 04:37 Magnesium 1.7 mg/dL (1.6-2.6) 04/07/17 04:37 Total Bilirubin 0.3 mg/dL (0.2-1.2) 04/07/17 04:37 Direct Bilirubin 0.1 mg/dL (0.0-0.5) 04/06/17 15:40 Indirect Bilirubin 0.2 mg/dL (0.0-1.2) 04/06/17 15:40 AST 84 Units/L (5-34) H 04/07/17 04:37 ALT 89 Units/L (0-55) H 04/07/17 04:37 Alkaline Phosphatase 85 Units/L (38-126) 04/07/17 04:37 Serum Total Protein 5.6 g/dL (6.0-8.3) L D 04/07/17 04:37 Albumin 3.0 g/dL (3.5-5.0) L D 04/07/17 04:37 Globulin 2.6 g/dL (2.4-3.5) 04/07/17 04:37 Albumin/Globulin Ratio 1.2 (1.1-2.2) 04/07/17 04:37 Triglycerides 205 mg/dL (< 150) H 04/07/17 04:37 Cholesterol 137 mg/dL (< 200) 04/07/17 04:37 LDL Cholesterol, Calc 69 mg/dL (0-99) 04/07/17 04:37 VLDL Cholesterol, Calc 41 mg/dL (< 31) H 04/07/17 04:37 HDL Cholesterol 27 mg/dL (40-59) L 04/07/17 04:37 Cholesterol/HDL Ratio 5.1 (0-4.9) H 04/07/17 04:37 Amylase 36 Units/L (25-125) 04/06/17 19:29 Lipase 55 Units/L (8-78) 04/06/17 15:40 Urine Color Yellow (Yellow) 04/06/17 15:30 Urine Clarity Clear (Clear) 04/06/17 15:30 Urine pH 6.5 pH Units (5.0-8.0) 04/06/17 15:30 Ur Specific [place] 1.006 (1.010-1.025) L 04/06/17 15:30 Urine Protein Negative mg/dL (Neg-Trace) 04/06/17 15:30 Urine Glucose (UA) Normal mg/dL (Normal) 04/06/17 15:30 Urine Ketones Negative mg/dL (Negative) 04/06/17 15:30 Urine Blood Moderate (Negative) H 04/06/17 15:30 Urine Nitrite Negative (Negative) 04/06/17 15:30 Urine Bilirubin Negative (Negative) 04/06/17 15:30 Urine Urobilinogen Normal mg/dL (Normal) 04/06/17 15:30 Ur Leukocyte Esterase Negative (Negative) 04/06/17 15:30 Urine Microscopic RBC 0-3 per hpf (0-3) 04/06/17 15:30 Urine Microscopic WBC Test Not Performed 04/06/17 15:30 Ur Squamous Epith Cells Test Not Performed 04/06/17 15:30 Urine Bacteria Test Not Performed 04/06/17 15:30 Hyaline Casts Test Not Performed 04/06/17 15:30 Ethyl Alcohol 235 mg/dL (0-10) H 04/06/17 19:29 - Impressions Impressions Ribs X-Ray 04/06/17 19:14 IMPRESSION: No acute process. No displaced rib fracture. D/ / Yoseph Lin MD / Yoseph Lin MD Interpreting Provider: Yoseph Lin MD Consult Discharge Plan - Plan Referrals: Milad Schwartz MD [Primary Care Provider] -
--- NOTE | 2017-04-07 19:34 | Internal Med Progress Note ---
Date of Encounter: 04/07/17 Time of Encounter: 13:00 - Assessment and plan (1) Suicidal ideation Current Visit: No Status: Acute Assessment and plan: Psychiatry was consulted. Currently on stable the observation. We will follow up with psychiatry service. (2) Anxiety disorder Current Visit: No Status: Acute Assessment and plan: Librium prescribed for alcohol withdrawal should alleviate the symptoms of anxiety. Qualifiers: Anxiety disorder type: unspecified anxiety disorder Qualified Code(s): F41.9 - Anxiety disorder, unspecified (3) MDD (major depressive disorder), recurrent episode, severe Current Visit: No Status: Acute Assessment and plan: Follow-up with psychiatry. Qualifiers: Psychotic features: without psychotic features Qualified Code(s): F33.2 - Major depressive disorder, recurrent severe without psychotic features (4) Alcohol abuse Current Visit: No Status: Acute Assessment and plan: Alcohol withdrawal protocol. Librium taper. Ativan as needed for withdrawal symptoms. The patient was discharged from our service a week ago and at that time she was planning to check herself into inpatient rehabilitation, however did not have a bed and the patient states that she waited for to long and then she started drinking and while intoxicated made statements expressing intention to self- harm. She currently denies suicidal ideation and would like to be checked in to inpatient rehabilitation. (5) Acute gastritis without bleeding Current Visit: Yes Status: Acute Qualifiers: Gastritis type: alcoholic Qualified Code(s): K29.20 - Alcoholic gastritis without bleeding (6) Tobacco abuse disorder Current Visit: No Status: Acute Assessment and plan: We will provide a nicotine patch. (7) Alcoholic intoxication Current Visit: Yes Status: Acute Assessment and plan: We will treat with IV fluids. Currently this has resolved. Monitor for withdrawal symptoms. Qualifiers: Complication of substance-induced condition: uncomplicated Qualified Code(s ): F10.120 - Alcohol abuse with intoxication, uncomplicated - Subjective Interval history: Patient was admitted to our service for suicidal ideation in an intoxicated state. There was concern for alcohol withdrawal. Currently patient denies suicidal and homicidal ideation. She appears remorseful. - Constitutional Vitals: Temp Pulse Resp BP Pulse Ox 98.6 F 70 16 143/93 94 04/07/17 14:45 04/07/17 14:45 04/07/17 14:45 04/07/17 14:45 04/07/17 14:45 General appearance: Present: disheveled, A&O X 3 - Eye Eye exam: Present: PERRL, conjuntiva pink, sclera anicteric Pupils: Present: PERRL - Respiratory Respiratory exam: Present: CTAB. Absent: accessory muscle use, rales, rhonchi, wheezes - Cardiovascular Cardiovascular exam: Present: RRR, +S1, +S2. Absent: diastolic murmur, gallop, rubs, systolic murmur - GI/Abdominal GI/Abdominal exam: Present: normal bowel sounds, soft, no peritoneal signs. Absent: distended, tenderness - Extremities Exam Extremities exam: Present: warm, radial pulses palpable and symetrical. Absent : calf tenderness, cyanotic, pedal edema - Skin Skin exam: Present: dry, intact Internal Medicine: Result - Labs CBC & Chem 7: 04/07/17 04:37 04/07/17 04:37 Labs: Short CBC 04/07/17 Range/Units 04:37 WBC 5.4 (4.3-11.1) K/mcL Hgb 10.6 L D (11.5-15.4) g/dL Hct 31.5 L (35.3-44.9) % Plt Count 214 (140-400) K/mcL BMP 04/07/17 04:37 Sodium 143 Potassium 3.1 L Chloride 111 H Carbon Dioxide 24 BUN 12 Creatinine 0.78 Glucose 89 Calcium 7.6 L D Liver Function 04/07/17 Range/Units 04:37 Total Bilirubin 0.3 (0.2-1.2) mg/dL AST 84 H (5-34) Units/L ALT 89 H (0-55) Units/L Alkaline Phosphatase 85 (38-126) Units/L Albumin 3.0 L D (3.5-5.0) g/dL - ABG Interpretation ABG results: PT/INR, D-dimer PT 10.8 Seconds (9.4-12.1) 04/06/17 15:40 - Impressions Impressions Ribs X-Ray 04/06/17 19:14 IMPRESSION: No acute process. No displaced rib fracture. D/ / Yoseph Lin MD / Yoseph Lin MD Interpreting Provider: Yoseph Lin MD Consult Discharge Plan - Plan Referrals: Milad Schwartz MD [Primary Care Provider] -
[2017-04-07] MEDS ORDERED: Neosporin OINT 15 GM TUBE TP PRN (20:41)
[2017-04-08 05:35] LABS: Eosinophils # 0.1 K/mcL (0.0-0.6); Eosinophils % 2.1 %; Hematocrit 32.8 % (35.3-44.9); Hemoglobin 11.3 g/dL (11.5-15.4); Immature Granulocytes % 0.3 % (0-4); Lymphocytes # 1.9 K/mcL (0.6-4.6); Lymphocytes % 49.7 %; Mean Corpuscular HGB Conc 34.5 g/dL (31.6-35.5); Mean Corpuscular Hemoglobin 33.1 pg (28.0-33.3); Mean Corpuscular Volume 96.2 fL (83.0-100.0); Mean Platelet Volume 10.2 fL (9.4-12.4); Monocytes # 0.4 K/mcL (0.0-1.3); Monocytes % 10.1 %; Neutrophils # 1.4 K/mcL (1.6-8.9); Platelet Count 245 K/mcL (140-400); Red Blood Count 3.41 M/mcL (3.82-4.97); Segmented Neutrophils % 36.8 %
[2017-04-08] MEDS: *HR* Heparin 5,000 UNIT/ML VIAL SQ SCH (05:35)
[2017-04-08] MEDS: Acetaminophen 325 MG TABLET PO PRN ×2 (05:35→16:10)
[2017-04-08 05:51] LABS: BUN/Creatinine Ratio 11 (6-26); Blood Urea Nitrogen 8 mg/dL (7-20); Calcium 8.4 mg/dL (8.6-10.8); Carbon Dioxide 20 mEq/L (19-29); Chloride 109 mEq/L (98-109); Glucose 109 mg/dL (70-99); Osmolality,Calculated 291 (280-300); Potassium 3.2 mEq/L (3.5-4.5); Sodium 141 mEq/L (136-145); eGFR For African Americans > 60 (> 60); eGFR For Non-African Americans > 60 (> 60)
[2017-04-08] MEDS: Pantoprazole 40 MG VIAL IVP SCH (08:48)
[2017-04-08] MEDS: Vitamin B Complex/Vit C/Vit E 1 EACH TABLET PO SCH (08:49)
[2017-04-08] MEDS: Multivit/Ca/Min/Fe/FA 1 TAB TABLET PO SCH (08:49)
[2017-04-08] MEDS: Thiamine (B-1) 100 MG TABLET PO SCH (08:49)
[2017-04-08] MEDS: Nicotine 21 MG PATCH.TD24 TD SCH (08:49)
[2017-04-08] MEDS: Folic Acid 1 MG TABLET PO SCH (08:49)
[2017-04-08] MEDS ORDERED: *HR* HYDROcodone/Acet 5/325 mg TABLET PO PRN (09:07)
--- NOTE | 2017-04-08 14:00 | Internal Med Progress Note ---
Date of Encounter: 04/08/17 Time of Encounter: 13:55 - Assessment and plan (1) Suicidal ideation Current Visit: No Status: Acute Assessment and plan: Psychiatry was consulted. Currently stable. will dc the sitter. (2) Alcohol withdrawal Current Visit: Yes Status: Acute Assessment and plan: she has mild alcohol withdrawal. , scoring CIWA of 2, continue ativan PRN monitor for seizures and DTs. Qualifiers: Complication of substance-induced condition: with unspecified complication Qualified Code(s): F10.239 - Alcohol dependence with withdrawal, unspecified - Time Spent With Patient 25 - 35 minutes - Subjective Interval history: patient was admitted for suicidal ideation and alcohol abuse. she was seen at the bedside, she denies any complains, she has no signs of suicidal ideation at this time. CIWA protocol scoring 2, she is interested in detox. planned for dc to rehab, she will possible stay till as the facility do not currently have detox staff. - Constitutional Vitals: Temp Pulse Resp BP Pulse Ox 98.9 F 70 18 151/100 95 04/08/17 10:31 04/08/17 10:31 04/08/17 10:31 04/08/17 10:31 04/08/17 10:31 General appearance: Present: disheveled, A&O X 3 Exam: neck- supple chest- b/l clear, no added sounds CVS-s1 and s2, no m/r/g abd-soft, non tender, bs are present ext- no edema neuro-no focal deficits. Internal Medicine: Result - Labs CBC & Chem 7: 04/08/17 04:55 04/08/17 04:55 Labs: Short CBC 04/08/17 Range/Units 04:55 WBC 3.9 L (4.3-11.1) K/mcL Hgb 11.3 L (11.5-15.4) g/dL Hct 32.8 L (35.3-44.9) % Plt Count 245 (140-400) K/mcL Neutrophils # 1.4 L (1.6-8.9) K/mcL BMP 04/08/17 04:55 Sodium 141 Potassium 3.2 L Chloride 109 Carbon Dioxide 20 BUN 8 Creatinine 0.70 Glucose 109 H Calcium 8.4 L - ABG Interpretation ABG results: PT/INR, D-dimer PT 10.8 Seconds (9.4-12.1) 04/06/17 15:40 Consult Discharge Plan - Plan Referrals: Milad Schwartz MD [Primary Care Provider] - 04/30/17 2:00 pm
[2017-04-08 15:18] VITALS: BP 157/106
--- NOTE | 2017-04-08 16:03 | Discharge Summary ---
Date of Encounter: 04/08/17 Time of Encounter: 16:01 - Discharge Diagnosis (1) Suicidal ideation Priority: Primary Status: Acute (2) Alcohol withdrawal Priority: Primary Status: Acute Qualifiers: Complication of substance-induced condition: with unspecified complication Qualified Code(s): F10.239 - Alcohol dependence with withdrawal, unspecified - Discharge Medications Home Medications: Multivit with Calcium,Iron,Min [One Daily Women's] 1 tab PO DAILY 03/27/17 [ History] Chlordiazepoxide [Librium] 50 mg PO QID #42 capsule 03/31/17 [Rx] Folic Acid 1 mg PO DAILY 30 Days 03/31/17 [Rx] Thiamine (B-1) [Vitamin B-1] 100 mg PO DAILY 30 Days 03/31/17 [Rx] Allergies/Adverse Reactions: Allergies ibuprofen [From Motrin] Allergy (Verified 03/04/16 22:31) Swelling of Lip/Tongue/Throat Procedures/tests Complete & Pending: Procedures Performed prior 72 hours Category Date Time Status EKG [ECG 12 lead ECG] [ECG] Stat Y 04/06/17 20:05 Ordered Date of admission: 04/06/17 18:25 Primary care physician: Milad Schwartz MD Consults: 04/06/17 18:55 Consult to [employer] [CONS] Routine Reason for SW Consult: Alcohol abuse with need for placement in rehab facility 04/06/17 19:09 Consult to Psychiatry [CONS] Routine Consulting Provider: Psychiatry Ro Reason for Consult: Suicidal ideations Call Completed: Yes 04/06/17 19:41 Consult to Nutrition [CONS] Routine Comment: Consulting Provider: NUTRITION Reason for Dietary Consult: MST Score Discharging clinician: Lobo Duncan Anticipated date of discharge: 04/08/17 - Patient Status Disposition: Home, Self-Care Condition: Fair Functional capacity at discharge: independent ambulation Overall status at discharge: patient is progressing back to baseline - Discharge Instructions Instructions: Depression (DC) Follow Up With: Milad Schwartz MD [Primary Care Provider] - 04/30/17 2:00 pm - Diet and Activity Activity: resume usual activities as tolerated Diet: advance to your usual diet Interval History: Ms. Sher is a 36 year old female who was admitted after presenting to the ER with intoxication related to alcohol abuse in intoxicated state. SHE was admitted and treated for withdrawal symptoms. Endorsed SI while intoxicated. Currently denying lethality. Stated she often endorses SI when drunk. Linked with mental health and substance abuse treatment through [facility]. Had been planning on respite/residential treatment with them when she presented to [place]. No longer acutely intoxicated, she has mild alcohol withdrawal for which she is getting librium and ativan prn. Denying SI and HI. No evidence of psychosis or other thought disorder on exam. she was planned to be sent to rehab, however she refuses to go to rehab and requests to be dc home. she is being dc today in stable condition. Hospital course: Ms. Sher is a 36 year old female Time spent discussing smoking cessation with patient: more than 10 minutes - Time Spent with Patient Total time spent providing and/or coordinating discharge services: Greater than 30 minutes - Constitutional Vitals: Temp Pulse Resp BP Pulse Ox 98.4 F 84 18 157/106 98 04/08/17 15:13 04/08/17 15:13 04/08/17 15:13 04/08/17 15:13 04/08/17 15:13 General appearance: Present: disheveled, A&O X 3 Exam: neck- supple chest- b/l clear , no added sounds CVS-s1 and s2, no m/r/g abd-soft, non tender, bs are present ext-no edema
== END 2017-04-08 16:48 | disposition home or self-care (01) ==
LOC: 3ANU 14:40 → EMEROO 14:40 → 3ANU 18:56
PROVIDERS: ADMIT Nurse Practitioner Family; ATTEND Internal Medicine

== ENCOUNTER 2017-06-04 21:36 | Inpatient (IN) ==
[2017-06-05 03:58] LABS: Bilirubin,Urine Negative (Negative); Clarity,Urine Clear (Clear); Color,Urine Yellow (Yellow); Glucose,Urine (UA) Normal (Normal)
[2017-06-05 03:59] LABS: Blood,Urine Large (Negative); Ketones,Urine Negative (Negative); Leukocyte Esterase,Urine Negative (Negative); Nitrite,Urine Negative (Negative); PH,Urine 5.5 pH Units (5.0-8.0); Protein,Urine 100 mg/dL (Neg-Trace); Specific Gravity,Urine 1.019 (1.010-1.025); Urobilinogen,Urine Normal (Normal)
[2017-06-05 04:07] LABS: RBC,Urine 0-3 per hpf (0-3); WBC,Urine 0-3 per hpf (0-3)
[2017-06-05 04:08] LABS: Bacteria,Urine Few per hpf (None-Few); Squamous Epithelial Cell,Urine Few per lpf (None-Few)
--- NOTE | 2017-06-05 04:36 | Emergency Department Note ---
Disposition Clinical Impression: Alcohol withdrawal Qualifiers: Complication of substance-induced condition: uncomplicated Qualified Code(s): F10.230 - Alcohol dependence with withdrawal, uncomplicated Head injury Qualifiers: Encounter type: initial encounter Qualified Code(s): S09.90XA - Unspecified injury of head, initial encounter Left shoulder pain Qualifiers: Chronicity: acute Qualified Code(s): M25.512 - Pain in left shoulder Disposition: Admitted As Inpatient Time of Disposition: 05:38 Alcohol HPI - General Chief Complaint: ED Alcohol Abuse Stated Complaint: intoxicated fell/head injury/withdrawls Time Seen by Provider: 06/05/17 03:31 Source: patient Mode of arrival: ambulatory Limitations: no limitations Nursing Notes Reviewed: Yes Vital Signs Reviewed: Yes - History of Present Illness HPI Narrative: Patient is a 36-year-old female with past medical history of alcohol abuse. She is recently been drinking half a bottle of vodka daily. She has been trying to quit. She has transitioned to drinking 2-3 beers daily. However, she has been excessively shaky and believes that she is in withdrawal. Chest had a fall about 3 weeks ago onto the back of her head. She still has a knot on the back of her head and has been having headaches and nausea and vomiting. She also believes that she injured her left shoulder when she fell. She is requesting imaging for her head and left shoulder. She also is requesting help for alcohol withdrawal. Otherwise, denies chest pain, shortness of breath, current abdominal pain. - Related Data Home Medications Medication Instructions Recorded Confirmed Multivit with Calcium,Iron,Min 1 tab PO DAILY 03/27/17 04/07/17 [One Daily Women's] Previous Rx's Medication Instructions Recorded Chlordiazepoxide [Librium] 50 mg PO QID #42 capsule 03/31/17 Folic Acid 1 mg PO DAILY 30 Days 03/31/17 Thiamine (B-1) [Vitamin B-1] 100 mg PO DAILY 30 Days 03/31/17 Omeprazole [PriLOSEC] 20 mg PO BIDAC #24 cap 04/21/17 Sucralfate [Carafate] 1 gm PO BID #14 tablet 04/21/17 Allergies Allergy/AdvReac Type Severity Reaction Status Date / Time ibuprofen [From Motrin] Allergy Swelling Verified 04/12/17 19:35 of Lip/Tongue/Throat All systems ED: reviewed and negative except as stated. Constitutional: Denies: fever Cardiovascular: Denies: chest pain, palpitations Respiratory: Denies: cough, dyspnea Gastrointestinal: Reports: nausea, vomiting. Denies: abdominal pain, diarrhea, constipation Neurological: Reports: headache. Denies: weakness, numbness, paresthesias Past Medical History - Past Medical History Attestation: Yes The following information was validated with the patient. Source: patient Medical history: Reports: asthma Surgical history: Reports: other (LEEP, bilateral tubal ligation, wisdom teeth ) Psychiatric history: Reports: depression, prior suicide attempt, previous psychiatric hospitalization BOX MAKER history: Reports: no BOX MAKER history, bilateral tubal ligation - Social History Smoking Status: Current every day smoker Smokeless Tobacco Status: No Alcohol use: Reports: heavy, recent Drug use: Reports: marijuana Physical Exam - General Limitations: no limitations General appearance: alert, anxious - Head Head exam: other (Edema approximately 3 cm x 3 cm posterior occiput. No lesions or bleeding.) - Eye Eye exam: Present: normal appearance, PERRL, EOMI - ENT ENT exam: normal exam, normal oropharynx, mucous membranes moist - Neck Neck exam: Present: normal inspection, full ROM, trachea midline - Chest Chest inspection: Present: normal inspection, symmetric chest wall rise - Respiratory Respiratory exam: Present: normal lung sounds bilaterally - Cardiovascular Cardiovascular exam: Present: regular rate, normal rhythm, normal heart sounds - Abdominal Exam Abdominal exam: Present: soft, Non-Tender. Absent: tenderness, distention, guarding, rebound, rigidity - Extremities Exam Extremities exam: Present: normal inspection, full ROM, tenderness (Mild tenderness along the anterior joint line of the left shoulder.). Absent: pedal edema - Neurological Exam Neurological exam: Present: alert, oriented X3, CN II-XII intact, other ( Generalized shaking). Absent: motor sensory deficit - Psychiatric Psychiatric exam: Present: anxious - Skin Skin exam: Present: warm, dry, intact, normal color Course Course Narrative: Patient is hypertensive and tachycardic, likely secondary to withdrawal of alcohol. Due to the fall, edema of the posterior occiput, nausea and vomiting, we will obtain head CT. We will also obtain x-ray of the left shoulder to assess for any fractures. I discussed with her that it is possible that she could have injured her left rotator cuff she is having pain with range of motion of that shoulder. 1 mg of Ativan was given. X-ray of the left shoulder was negative for any fracture or dislocation. Head CT was negative for any acute intracranial process. Patient will be admitted to the hospital for alcohol withdrawal, suggest CIWA protocol after admission. Shoulder X-Ray 06/05/17 03:16 IMPRESSION: No radiographic evidence of fracture or dislocation identified. D/ / Mathew Randall MD / Mathew Randall MD Interpreting Provider: Mathew Randall MD Head CT 06/05/17 04:35 IMPRESSION: No acute intracranial hemorrhage or mass effect. D/ / Negro Gusman MD / Negro Gusman MD Interpreting Provider: Negro Gusman MD Vital Signs Temperature 98.4 F 06/04/17 22:15 Pulse Rate 109 06/04/17 22:15 Respiratory Rate 20 06/04/17 22:15 Blood Pressure 169/100 06/04/17 22:15 O2 Sat by Pulse Oximetry 97 06/04/17 22:15 Temperature 98.4 F 06/04/17 22:15 Pulse Rate 96 06/05/17 06:18 Respiratory Rate 18 06/05/17 06:18 Blood Pressure 156/111 06/05/17 06:18 O2 Sat by Pulse Oximetry 96 06/05/17 06:18 Oxygen Delivery Oxygen Delivery Room Air Alcohol - MDM Narrative Medical decision making narrative: Patient is hypertensive and tachycardic, likely secondary to withdrawal of alcohol. Due to the fall, edema of the posterior occiput, nausea and vomiting, we will obtain head CT. We will also obtain x-ray of the left shoulder to assess for any fractures. I discussed with her that it is possible that she could have injured her left rotator cuff she is having pain with range of motion of that shoulder. 1 mg of Ativan was given. X-ray of the left shoulder was negative for any fracture or dislocation. Head CT was negative for any acute intracranial process. Patient will be admitted to the hospital for alcohol withdrawal, suggest CIWA protocol after admission. - Medical Records Medical records reviewed: Yes I reviewed the patient's medical records. - Lab Data Lab results reviewed: Yes I reviewed the patient's lab results. Lab Results 06/05/17 Range/Units 03:21 Urine Color Yellow (Yellow) Urine Clarity Clear (Clear) Urine pH 5.5 (5.0-8.0) pH Units Ur Specific [place] 1.019 (1.010-1.025) Urine Protein 100 H (Neg-Trace) mg/dL Urine Glucose (UA) Normal (Normal) mg/dL Urine Ketones Negative (Negative) mg/dL Urine Blood Large H (Negative) Urine Nitrite Negative (Negative) Urine Bilirubin Negative (Negative) Urine Urobilinogen Normal (Normal) mg/dL Ur Leukocyte Esterase Negative (Negative) Urine Microscopic RBC 0-3 (0-3) per hpf Urine Microscopic WBC 0-3 (0-3) per hpf Ur Squamous Epith Cells Few (None-Few) per lpf Urine Bacteria Few (None-Few) per hpf Ur Culture Indicated? NO (NO) - Radiology Data Radiology results reviewed: Yes I reviewed the patient's radiology results. Shoulder X-Ray 06/05/17 03:16 IMPRESSION: No radiographic evidence of fracture or dislocation identified. D/ / Mathew Randall MD / Mathew Randall MD Interpreting Provider: Mathew Randall MD Head CT 06/05/17 04:35 IMPRESSION: No acute intracranial hemorrhage or mass effect. D/ / Negro Gusman MD / Negro Gusman MD Interpreting Provider: Negro Gusman MD S.B.A.R. - S.B.A.R. Situation: Demographics, MOA Background: Presenting Complaint, Relevant PMH, Meds, & Allergies Assessment: Vital Signs, Course and respsone to treatment, Exam Concerns, Patient/Family Expectation, Pertinant Lab Results Recommendation: Barrier(s) to disposition, Recommendation based on pending studies, treatments, or consults S.B.A.R. Report Given to: Dr. Waggoner Attestation Statement - Attestation Attestation: I, Amish Galvez MD, personally evaluated this patient and discussed their management with the resident physician. I reviewed the resident's note and agree with the documented findings, medical decision making, and plan of care. 36-year-old female presents to the emergency department with a complaint of alcohol withdrawal symptoms. Patient has a history of alcoholism and has been trying to get off the alcohol on her own. She switched from vodka to beer. She last drank a beer about 1 PM yesterday. She complains of having chills and sweats and intermittent shakes. No seizures. Patient also complains that she fell about 3 weeks ago and hit her head and since then she has been having a lot of bad headaches. On examination patient is a well-developed well-nourished female in no acute distress. She is alert and oriented 3. There is no cyanosis or diaphoresis. Breath sounds are clear and equal bilaterally. Heart regular rate and rhythm. Abdomen soft and nontender with normal bowel sounds. No gross focal neurological deficits. Head CT negative. Hospitalist, Dr. Duncan, was consulted and accepted admission of the patient.
[2017-06-05] MEDS ORDERED: *HR* LORazepam 2 MG/ML VIAL IVP ONE (05:43)
[2017-06-05] MEDS ORDERED: Naloxone 0.4 MG/ML INJ IVP PRN ×2 (07:28→07:36)
[2017-06-05] MEDS ORDERED: Acetaminophen 325 MG TABLET PO PRN (07:36)
[2017-06-05 08:17] LABS: Prothrombin Time 10.6 Seconds (9.4-12.1)
[2017-06-05] MEDS: *HR* Morphine 2 MG/ML SYRINGE IVP PRN ×2 (08:39→18:31)
[2017-06-05] MEDS: Pantoprazole 40 MG VIAL IVP SCH (08:39)
[2017-06-05] MEDS: Nicotine 21 MG PATCH.TD24 TD SCH (08:39)
[2017-06-05] MEDS: Ondansetron 4 MG/2 ML VIAL IVP PRN ×2 (08:39→18:30)
[2017-06-05] MEDS: Multivit/Ca/Min/Fe/FA 1 TAB TABLET PO SCH (08:40)
[2017-06-05] MEDS: Folic Acid 1 MG TABLET PO SCH (08:40)
[2017-06-05] MEDS: 0.9 % Sodium Chloride 1,000 ML IVC SCH ×2 (08:41→20:47)
[2017-06-05] MEDS: Sucralfate 1 GM TABLET PO SCH ×2 (08:41→20:48)
--- NOTE | 2017-06-05 09:16 | Internal Med History&Physical ---
Date of Encounter: 06/05/17 Time of Encounter: 09:00 Assessment and Plan (1) Alcohol withdrawal Current visit: No Status: Acute Acute alcohol withdrawal Continue [facility] protocol IV thiamine, IV fluids, folic acid IV Ativan when necessary, Librium by mouth Aspiration precautions IV Protonix and Carafate Qualifiers: Complication of substance-induced condition: with unspecified complication Qualified Code(s): F10.239 - Alcohol dependence with withdrawal, unspecified (2) MDD (major depressive disorder), recurrent episode, severe Current visit: No Status: Chronic Not on any medications at present Psych consult No suicidal ideation Qualifiers: Psychotic features: without psychotic features Qualified Code(s): F33.2 - Major depressive disorder, recurrent severe without psychotic features (3) Anxiety disorder Current visit: No Status: Chronic Qualifiers: Anxiety disorder type: unspecified anxiety disorder Qualified Code(s): F41.9 - Anxiety disorder, unspecified (4) Alcohol abuse Current visit: No Status: Chronic Patient drinks about half a bottle of vodka daily, says she is transitioning to several beers daily Advised to abstain from alcohol (5) Tobacco abuse disorder Current visit: No Status: Acute Counseled about cessation, nicotine patch (6) DVT prophylaxis Current visit: No Status: Acute Continue SCDs Internal Medicine - H&P: HPI Chief complaint: Alcohol withdrawal Admitted From: Emergency Dept History of present illness: Ms. Sher is a 36 year old female with past medical history of depression and alcohol abuse. Patient presents to the ED with complaints of alcohol withdrawal. Patient states she has been drinking half a bottle of vodka daily. States she is transitioned to drinking several beers a day. She complains of tremors which are worsening and says that this is due to withdrawal. She had a fall about 3-4 weeks ago and injured the back of her head. She also thinks she has injured her left shoulder when she had the fall. Patient wants help for her alcohol withdrawal and depression. Complains of nausea and vomiting. States she has not been eating for the past few days. Says she has dry heaves. She states she has many stressors in her life and she is finding it difficult to quit alcohol. Patient states she does follow up with her psychiatrist as outpatient. Patient does not have any suicidal ideation. She denies chest pain and denies shortness of breath denies abdominal pain. Denies diarrhea or cough or headache or dizziness. On examination patient is awake and alert. Not in any distress. Able to provide history. No family members at bedside. Initial evaluation with CT head is negative and left shoulder x-ray is negative for fracture or dislocation. Patient is being admitted for alcohol withdrawal. She has been explained about her condition and plan of care. Understood and agreed. No unanswered questions. CODE STATUS full code. Past Med Surg Social Fam HX - Past Medical History Medical history: asthma Psychiatric history: depression, prior suicide attempt, previous psychiatric hospitalization - Past Surgical History Surgical History: other - Social History Smoking Status: Current every day smoker Packs per day: 1 Smokeless Tobacco Status: No Alcohol use: heavy, recent Drug use: marijuana - Family History Maternal Grandmother Family Member Ethnicity: Non- Living Status: Hx Family Cancer: Yes (Throat cancer) Internal Medicine - H&P: Meds Multivit with Calcium,Iron,Min [One Daily Women's] 1 tab PO DAILY 03/27/17 [ History] Chlordiazepoxide [Librium] 50 mg PO QID #42 capsule 03/31/17 [Rx] Folic Acid 1 mg PO DAILY 30 Days 03/31/17 [Rx] Thiamine (B-1) [Vitamin B-1] 100 mg PO DAILY 30 Days 03/31/17 [Rx] Omeprazole [PriLOSEC] 20 mg PO BIDAC #24 cap 04/21/17 [Rx] Sucralfate [Carafate] 1 gm PO BID #14 tablet 04/21/17 [Rx] Allergies ibuprofen [From Motrin] Allergy (Verified 04/12/17 19:35) Swelling of Lip/Tongue/Throat All Systems PM: A 10-system review of systems was performed and is negative for pertinent findings except as documented above in the HPI. - Constitutional Constitutional: fatigue, weakness, no fever(s) - EENT Eyes: no blurry vision - Cardiovascular Cardiovascular ROS IM: no chest pain, no dyspnea, no dyspnea on exertion, no edema, no orthopnea, no syncope - Respiratory Respiratory: no cough, no dyspnea, no dyspnea on exertion, no wheezing, no chest congestion - Gastrointestinal Gastrointestinal: nausea, vomiting, no abdominal pain, no cramping, no diarrhea , no melena - Genitourinary Genitourinary: no dysuria - Neurological Neurological ROS: no abnormal gait, no abnormal speech, no dizziness, no focal weakness, no numbness, no tingling - Psychiatric Psychiatric: change in appetite, depression, hopelessness, no hallucinations, no suicidal ideation - Constitutional Vitals: Temp Pulse Resp BP Pulse Ox 98.1 F 82 16 142/92 96 06/05/17 07:26 06/05/17 07:26 06/05/17 07:26 06/05/17 07:26 06/05/17 07:26 General appearance: Present: A&O X 3, no acute distress, answers questions appropriately Exam: ill-appearing, depressed - Eye Eye exam: Present: EOMI - ENT ENT exam: Present: mucous membranes dry - Neck Neck exam general surgery: Present: supple - Respiratory Respiratory exam: Present: CTAB. Absent: rhonchi, wheezes, tachypnea - Cardiovascular Cardiovascular exam: Present: RRR, +S1, +S2 - GI/Abdominal GI/Abdominal exam: Present: soft, no peritoneal signs. Absent: firm, guarding, hernia, rigid, tenderness - Extremities Exam Extremities exam: Present: radial pulses palpable and symetrical. Absent: cyanotic, pedal edema - Neurological Exam Neurological exam: Present: alert, oriented X3, no focal deficits - Psychiatric Psychiatric exam: Present: depressed Internal Med - H&P Results - Labs Labs: pending
[2017-06-05 09:40] LABS: Hemoglobin 14.4 g/dL (11.5-15.4); Mean Corpuscular HGB Conc 33.5 g/dL (31.6-35.5); Mean Corpuscular Hemoglobin 33.6 pg (28.0-33.3); Mean Corpuscular Volume 100.5 fL (83.0-100.0); Mean Platelet Volume 10.2 fL (9.4-12.4); Platelet Count 153 K/mcL (140-400); Red Blood Count 4.28 M/mcL (3.82-4.97)
[2017-06-05 09:50] LABS: BUN/Creatinine Ratio 14 (6-26); Blood Urea Nitrogen 9 mg/dL (7-20); Calcium 8.8 mg/dL (8.6-10.8); Carbon Dioxide 22 mEq/L (19-29); Chloride 106 mEq/L (98-109); Glucose 69 mg/dL (70-99); Magnesium 2.2 mg/dL (1.6-2.6); Osmolality,Calculated 283 (280-300); Sodium 138 mEq/L (136-145); eGFR For African Americans > 60 (> 60); eGFR For Non-African Americans > 60 (> 60)
[2017-06-05] MEDS: Thiamine (B-1) 100 MG in D5% in Water 50 ML IVPB SCH (10:30)
[2017-06-05 12:36] LABS: Bilirubin,Urine Small (Negative); Blood,Urine Large (Negative); Color,Urine Dark Yellow (Yellow); Glucose,Urine (UA) Normal (Normal); Ketones,Urine Trace mg/dL (Negative); Leukocyte Esterase,Urine Negative (Negative); Nitrite,Urine Negative (Negative); PH,Urine 5.5 pH Units (5.0-8.0); Protein,Urine 100 mg/dL (Neg-Trace); Specific Gravity,Urine 1.023 (1.010-1.025); Urobilinogen,Urine Normal (Normal)
[2017-06-05 12:39] LABS: Bacteria,Urine None Seen per hpf (None-Few); Hyaline Casts,Urine None Seen per lpf (None-Few); Squamous Epithelial Cell,Urine Many per lpf (None-Few); WBC,Urine 0-3 per hpf (0-3)
[2017-06-05 12:42] LABS: Clarity,Urine Clear (Clear)
[2017-06-05] MEDS: *HR* LORazepam 2 MG/ML VIAL IVP PRN ×2 (12:48→18:37)
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
--- NOTE | 2017-06-05 13:22 | Electrocardiograph Report ---
[place] [id number] Test Date: 2017-06-05 Pat Name: Domi Sher Department: 113 Room: 3B41 Gender: F Director Prison: [facility] : 1980 Requested By: Jonny Garza Order Number: [id number] Reading MD: Titus North MD Measurements Intervals [place] Rate: 95 P: 46 CA: 159 QRS: 52 QRSD: 79 T: 52 QT: 368 QTc: 421 Interpretive Statements SINUS RHYTHM Electronically Signed On 06-05-2017 13:20:31 EDT by Titus North MD
[2017-06-06 04:42] LABS: Basophils % 0.7 %; Eosinophils # 0.1 K/mcL (0.0-0.6); Eosinophils % 2.6 %; Hematocrit 42.7 % (35.3-44.9); Immature Granulocytes % 0.3 % (0-4); Lymphocytes # 1.1 K/mcL (0.6-4.6); Lymphocytes % 37.4 %; Mean Corpuscular HGB Conc 32.8 g/dL (31.6-35.5); Mean Corpuscular Hemoglobin 34.1 pg (28.0-33.3); Mean Corpuscular Volume 103.9 fL (83.0-100.0); Mean Platelet Volume 10.5 fL (9.4-12.4); Monocytes # 0.4 K/mcL (0.0-1.3); Monocytes % 12.6 %; Neutrophils # 1.4 K/mcL (1.6-8.9); Platelet Count 123 K/mcL (140-400); Red Blood Count 4.11 M/mcL (3.82-4.97); Red Cell Distribution Width 13.6 % (11.5-14.5); Segmented Neutrophils % 46.4 %
[2017-06-06 04:59] LABS: BUN/Creatinine Ratio 20 (6-26); Blood Urea Nitrogen 15 mg/dL (7-20); Calcium 8.9 mg/dL (8.6-10.8); Carbon Dioxide 25 mEq/L (19-29); Chloride 107 mEq/L (98-109); Glucose 95 mg/dL (70-99); Magnesium 2.2 mg/dL (1.6-2.6); Osmolality,Calculated 289 (280-300); Sodium 139 mEq/L (136-145); eGFR For African Americans > 60 (> 60); eGFR For Non-African Americans > 60 (> 60)
[2017-06-06] MEDS: 0.9 % Sodium Chloride 1,000 ML IVC SCH ×2 (05:38→10:11)
[2017-06-06] MEDS: Nicotine 21 MG PATCH.TD24 TD SCH (10:05)
[2017-06-06] MEDS: Multivit/Ca/Min/Fe/FA 1 TAB TABLET PO SCH (10:05)
[2017-06-06] MEDS: Sucralfate 1 GM TABLET PO SCH ×2 (10:05→21:34)
[2017-06-06] MEDS: Folic Acid 1 MG TABLET PO SCH (10:05)
[2017-06-06] MEDS: Pantoprazole 40 MG VIAL IVP SCH (10:05)
[2017-06-06] MEDS: Ondansetron 4 MG/2 ML VIAL IVP PRN ×2 (10:06→18:21)
[2017-06-06] MEDS: *HR* Morphine 2 MG/ML SYRINGE IVP PRN ×2 (10:08→18:21)
[2017-06-06] MEDS ORDERED: *HR* LORazepam 2 MG/ML VIAL IVP PRN (13:29)
--- NOTE | 2017-06-06 13:45 | Internal Med Progress Note ---
Date of Encounter: 06/06/17 Time of Encounter: 13:43 - Assessment and plan (1) DVT prophylaxis Current Visit: Yes Status: Acute (2) Depression Current Visit: Yes Status: Acute Qualifiers: Depression Type: unspecified Qualified Code(s): F32.9 - Major depressive disorder, single episode, unspecified (3) Alcoholic intoxication Current Visit: Yes Status: Acute Qualifiers: Complication of substance-induced condition: uncomplicated Qualified Code(s ): F10.920 - Alcohol use, unspecified with intoxication, uncomplicated (4) Alcohol withdrawal Current Visit: Yes Status: Acute Qualifiers: Complication of substance-induced condition: uncomplicated Qualified Code(s ): F10.230 - Alcohol dependence with withdrawal, uncomplicated - Subjective Interval history: Ms. Sher is a 36 year old female with a history of depression and PTSD as well as alcohol dependence who presented to the hospital in alcohol withdrawal requesting help with this. Patient states that she has a long-standing history of alcohol dependence in his drink a bottle of vodka a day. She tried to transition to beer and had severe alcohol withdrawal. Patient was seen by psychiatrist during this admission who has recommended outpatient treatment. Patient is willing to be involved in alcohol rehabilitation program as outpatient and social workers are alerted. Her alcohol withdrawal score is around 20 therefore her alcohol withdrawal protocol has been updated. I noted her white cell count has reduced quite significantly perhaps related to marrow suppression by alcohol but will keep an eye and recheck her electrolytes and cell counts. Count as low as expected due to alcohol. - Constitutional Vitals: Temp Pulse Resp BP Pulse Ox 98.9 F 89 16 135/89 95 06/06/17 12:01 06/06/17 12:01 06/06/17 12:01 06/06/17 12:01 06/06/17 12:01 General appearance: Present: A&O X 3, no acute distress, answers questions appropriately - Head Head exam: Present: atraumatic, normocephalic - Eye Eye exam: Present: PERRL, conjuntiva pink, sclera anicteric Pupils: Present: PERRL - Neck Neck exam general surgery: Present: supple, trachea midline. Absent: lymphadenopathy - Respiratory Respiratory exam: Present: CTAB. Absent: accessory muscle use, rales, rhonchi, wheezes - Cardiovascular Cardiovascular exam: Present: RRR, +S1, +S2. Absent: diastolic murmur, gallop, rubs, systolic murmur - GI/Abdominal GI/Abdominal exam: Present: normal bowel sounds, soft, no peritoneal signs. Absent: distended, tenderness - Extremities Exam Extremities exam: Present: warm, radial pulses palpable and symetrical. Absent : calf tenderness, cyanotic, pedal edema - Neurological Exam Neurological exam: Present: CN II-XII intact, oriented X3, no focal deficits. Absent: pronater drift, facial droop, speech deficit - Skin Skin exam: Present: dry, intact Internal Medicine: Result - Labs CBC & Chem 7: 06/06/17 03:41 06/06/17 03:41 Labs: Short CBC 06/06/17 Range/Units 03:41 WBC 3.0 L (4.3-11.1) K/mcL Hgb 14.0 (11.5-15.4) g/dL Hct 42.7 (35.3-44.9) % Plt Count 123 L (140-400) K/mcL Neutrophils # 1.4 L (1.6-8.9) K/mcL BMP 06/06/17 03:41 Sodium 139 Potassium 4.0 Chloride 107 Carbon Dioxide 25 BUN 15 Creatinine 0.75 Glucose 95 Calcium 8.9 - ABG Interpretation ABG results: PT/INR, D-dimer PT 10.6 Seconds (9.4-12.1) 06/05/17 07:56 - VTE Documentation of Mechanical Device: Intermittent pneumatic compression device Consult Discharge Plan - Plan Referrals: NO,PCP [Primary Care Provider] -
[2017-06-06] MEDS: Thiamine (B-1) 100 MG in D5% in Water 50 ML IVPB SCH (13:52)
[2017-06-06] MEDS: *HR* LORazepam 2 MG/ML VIAL IVP PRN ×2 (13:52→22:17)
[2017-06-07] MEDS: 0.9 % Sodium Chloride 1,000 ML IVC SCH ×2 (00:43→13:37)
[2017-06-07 04:39] LABS: Basophils % 0.6 %; Eosinophils # 0.1 K/mcL (0.0-0.6); Eosinophils % 1.9 %; Hematocrit 38.9 % (35.3-44.9); Hemoglobin 12.9 g/dL (11.5-15.4); Immature Granulocytes % 0.3 % (0-4); Lymphocytes # 1.2 K/mcL (0.6-4.6); Lymphocytes % 36.7 %; Mean Corpuscular HGB Conc 33.2 g/dL (31.6-35.5); Mean Corpuscular Hemoglobin 34.3 pg (28.0-33.3); Mean Corpuscular Volume 103.5 fL (83.0-100.0); Mean Platelet Volume 10.6 fL (9.4-12.4); Monocytes # 0.3 K/mcL (0.0-1.3); Monocytes % 9.9 %; Neutrophils # 1.6 K/mcL (1.6-8.9); Platelet Count 110 K/mcL (140-400); Red Blood Count 3.76 M/mcL (3.82-4.97); Red Cell Distribution Width 13.1 % (11.5-14.5); Segmented Neutrophils % 50.6 %
[2017-06-07 04:52] LABS: Alanine Aminotransferase 111 Units/L (0-55); Albumin/Globulin Ratio 0.9 (1.1-2.2); Alkaline Phosphatase 102 Units/L (38-126); Aspartate Amino Transferase 159 Units/L (5-34); BUN/Creatinine Ratio 22 (6-26); Bilirubin,Total 0.5 mg/dL (0.2-1.2); Blood Urea Nitrogen 14 mg/dL (7-20); Calcium 8.5 mg/dL (8.6-10.8); Carbon Dioxide 24 mEq/L (19-29); Chloride 107 mEq/L (98-109); Globulin 3.3 g/dL (2.4-3.5); Glucose 104 mg/dL (70-99); Lipase 141 Units/L (8-78); Osmolality,Calculated 285 (280-300); Potassium 3.8 mEq/L (3.5-4.5); Sodium 137 mEq/L (136-145); Total Protein 6.3 g/dL (6.0-8.3); eGFR For African Americans > 60 (> 60); eGFR For Non-African Americans > 60 (> 60)
[2017-06-07] MEDS: Nicotine 21 MG PATCH.TD24 TD SCH (09:45)
[2017-06-07] MEDS: Multivit/Ca/Min/Fe/FA 1 TAB TABLET PO SCH (09:46)
[2017-06-07] MEDS: Folic Acid 1 MG TABLET PO SCH (09:46)
[2017-06-07] MEDS: Sucralfate 1 GM TABLET PO SCH ×2 (09:46→19:54)
[2017-06-07] MEDS: Thiamine (B-1) 100 MG in D5% in Water 50 ML IVPB SCH (10:29)
[2017-06-07] MEDS: Pantoprazole 40 MG VIAL IVP SCH (10:30)
--- NOTE | 2017-06-07 15:22 | Discharge Summary ---
Date of Encounter: 06/07/17 Time of Encounter: 15:20 - Discharge Diagnosis (1) DVT prophylaxis Priority: Secondary Status: Acute (2) Depression Priority: Secondary Status: Acute Qualifiers: Depression Type: unspecified Qualified Code(s): F32.9 - Major depressive disorder, single episode, unspecified (3) Alcoholic intoxication Priority: Primary Status: Acute Qualifiers: Complication of substance-induced condition: uncomplicated Qualified Code(s ): F10.920 - Alcohol use, unspecified with intoxication, uncomplicated (4) Alcohol withdrawal Priority: Primary Status: Acute Qualifiers: Complication of substance-induced condition: uncomplicated Qualified Code(s ): F10.230 - Alcohol dependence with withdrawal, uncomplicated - Discharge Medications Home Medications: Multivit with Calcium,Iron,Min [One Daily Women's] 1 tab PO DAILY 03/27/17 [ History] Thiamine (B-1) [Vitamin B-1] 100 mg PO DAILY 30 Days 03/31/17 [Rx] Omeprazole [PriLOSEC] 20 mg PO BIDAC #24 cap 04/21/17 [Rx] Albuterol Sulfate [Albuterol Inhaler] 2 puff IH Q4HR PRN 06/05/17 [History] Biotin 1 mg PO DAILY 06/05/17 [History] Potassium 99 mg PO DAILY 06/05/17 [History] Acetaminophen [Tylenol] 650 mg PO Q6HR PRN #0 tablet 06/07/17 [Rx] Nicotine Patch [Nicoderm] 21 mg TD DAILY patch.td24 06/07/17 [Rx] Allergies/Adverse Reactions: Allergies ibuprofen [From Motrin] Allergy (Verified 04/12/17 19:35) Swelling of Lip/Tongue/Throat Date of admission: 06/06/17 17:14 Primary care physician: PCP JERRY Discharging clinician: Rusty Avila Anticipated date of discharge: 06/07/17 - Patient Status Disposition: Home, Self-Care Condition: Fair Overall status at discharge: patient is back to baseline - Discharge Instructions Follow Up With: JERRY,PCP [Primary Care Provider] - - Diet and Activity Activity: resume usual activities as tolerated Diet: advance to your usual diet Hospital course: Ms. Sher is a 36 year old female with a history of depression and PTSD as well as alcohol dependence who presented to the hospital in alcohol withdrawal requesting help with this. Patient states that she has a long-standing history of alcohol dependence in his drink a bottle of vodka a day. She tried to transition to beer and had severe alcohol withdrawal. Patient was seen by psychiatrist during this admission who has recommended outpatient treatment. Patient is willing to be involved in alcohol rehabilitation program as outpatient and social workers are alerted. Her alcohol withdrawal score is around 20 therefore her alcohol withdrawal protocol has been updated. I noted her white cell count has reduced quite significantly perhaps related to marrow suppression by alcohol but will keep an eye and recheck her electrolytes and cell counts. Count as low as expected due to alcohol. Seems to be doing much better today. No signs of withdrawal. I will DC CIWA and see if she remains stable in such case she can be discharged. She refused to be started on antidepressants and psych has already evaluated her. Time spent discussing smoking cessation with patient: 3 to 10 minutes - Time Spent with Patient Total time spent providing and/or coordinating discharge services: Greater than 30 minutes - Constitutional Vitals: Temp Pulse Resp BP Pulse Ox 99.1 F 84 14 130/88 96 06/07/17 11:09 06/07/17 11:09 06/07/17 11:09 06/07/17 11:09 06/07/17 11:09 General appearance: Present: A&O X 3, no acute distress, answers questions appropriately - Head Head exam: Present: atraumatic, normocephalic - Eye Eye exam: Present: PERRL, conjuntiva pink, sclera anicteric Pupils: Present: PERRL - Neck Neck exam general surgery: Present: supple, trachea midline. Absent: lymphadenopathy - Respiratory Respiratory exam: Present: CTAB. Absent: accessory muscle use, rales, rhonchi, wheezes - Cardiovascular Cardiovascular exam: Present: RRR, +S1, +S2. Absent: diastolic murmur, gallop, rubs, systolic murmur - GI/Abdominal GI/Abdominal exam: Present: normal bowel sounds, soft, no peritoneal signs. Absent: distended, tenderness - Extremities Exam Extremities exam: Present: warm, radial pulses palpable and symetrical. Absent : calf tenderness, cyanotic, pedal edema - Neurological Exam Neurological exam: Present: CN II-XII intact, oriented X3, no focal deficits. Absent: pronater drift, facial droop, speech deficit - Skin Skin exam: Present: dry, intact - VTE Documentation of Mechanical Device: Intermittent pneumatic compression device
[2017-06-07] MEDS ORDERED: *HR* Morphine 2 MG/ML SYRINGE IVP PRN (21:53)
[2017-06-08 04:47] LABS: Basophils # 0.1 K/mcL (0.0-0.2); Basophils % 1.3 %; Eosinophils # 0.1 K/mcL (0.0-0.6); Eosinophils % 2.9 %; Hematocrit 39.9 % (35.3-44.9); Hemoglobin 12.9 g/dL (11.5-15.4); Immature Granulocytes % 0.5 % (0-4); Lymphocytes # 1.4 K/mcL (0.6-4.6); Lymphocytes % 36.1 %; Mean Corpuscular HGB Conc 32.3 g/dL (31.6-35.5); Mean Corpuscular Hemoglobin 33.3 pg (28.0-33.3); Mean Corpuscular Volume 103.1 fL (83.0-100.0); Mean Platelet Volume 10.5 fL (9.4-12.4); Monocytes # 0.3 K/mcL (0.0-1.3); Monocytes % 8.6 %; Neutrophils # 1.9 K/mcL (1.6-8.9); Platelet Count 116 K/mcL (140-400); Red Blood Count 3.87 M/mcL (3.82-4.97); Segmented Neutrophils % 50.6 %
[2017-06-08 05:06] LABS: Alanine Aminotransferase 124 Units/L (0-55); Albumin 3.2 g/dL (3.5-5.0); Albumin/Globulin Ratio 0.9 (1.1-2.2); Alkaline Phosphatase 94 Units/L (38-126); Aspartate Amino Transferase 160 Units/L (5-34); BUN/Creatinine Ratio 23 (6-26); Bilirubin,Total 0.4 mg/dL (0.2-1.2); Blood Urea Nitrogen 16 mg/dL (7-20); Carbon Dioxide 25 mEq/L (19-29); Chloride 107 mEq/L (98-109); Globulin 3.4 g/dL (2.4-3.5); Glucose 108 mg/dL (70-99); Lipase 138 Units/L (8-78); Magnesium 2.1 mg/dL (1.6-2.6); Osmolality,Calculated 286 (280-300); Sodium 137 mEq/L (136-145); Total Protein 6.6 g/dL (6.0-8.3); eGFR For African Americans > 60 (> 60); eGFR For Non-African Americans > 60 (> 60)
[2017-06-08 05:08] LABS: Potassium 3.9 mEq/L (3.5-4.5)
[2017-06-08 07:18] VITALS: BP 144/94
[2017-06-08] MEDS: Pantoprazole 40 MG VIAL IVP SCH (09:31)
[2017-06-08] MEDS: Multivit/Ca/Min/Fe/FA 1 TAB TABLET PO SCH (09:31)
[2017-06-08] MEDS: Sucralfate 1 GM TABLET PO SCH (09:31)
[2017-06-08] MEDS: Nicotine 21 MG PATCH.TD24 TD SCH (09:31)
[2017-06-08] MEDS: Folic Acid 1 MG TABLET PO SCH (09:31)
[2017-06-08] MEDS: Thiamine (B-1) 100 MG in D5% in Water 50 ML IVPB SCH (09:32)
--- NOTE | 2017-06-08 11:54 | Discharge Summary ---
Date of Encounter: 06/08/17 Time of Encounter: 11:51 - Discharge Diagnosis (1) DVT prophylaxis Priority: Secondary Status: Acute (2) Depression Priority: Secondary Status: Acute Qualifiers: Depression Type: unspecified Qualified Code(s): F32.9 - Major depressive disorder, single episode, unspecified (3) Alcoholic intoxication Priority: Primary Status: Acute Qualifiers: Complication of substance-induced condition: uncomplicated Qualified Code(s ): F10.920 - Alcohol use, unspecified with intoxication, uncomplicated (4) Alcohol withdrawal Priority: Primary Status: Acute Qualifiers: Complication of substance-induced condition: uncomplicated Qualified Code(s ): F10.230 - Alcohol dependence with withdrawal, uncomplicated - Discharge Medications Home Medications: Multivit with Calcium,Iron,Min [One Daily Women's] 1 tab PO DAILY 03/27/17 [ History] Thiamine (B-1) [Vitamin B-1] 100 mg PO DAILY 30 Days 03/31/17 [Rx] Omeprazole [PriLOSEC] 20 mg PO BIDAC #24 cap 04/21/17 [Rx] Albuterol Sulfate [Albuterol Inhaler] 2 puff IH Q4HR PRN 06/05/17 [History] Biotin 1 mg PO DAILY 06/05/17 [History] Potassium 99 mg PO DAILY 06/05/17 [History] Acetaminophen [Tylenol] 650 mg PO Q6HR PRN #0 tablet 06/07/17 [Rx] Nicotine Patch [Nicoderm] 21 mg TD DAILY patch.td24 06/07/17 [Rx] Allergies/Adverse Reactions: Allergies ibuprofen [From Motrin] Allergy (Verified 04/12/17 19:35) Swelling of Lip/Tongue/Throat Date of admission: 06/06/17 17:14 Primary care physician: PCP JERRY Discharging clinician: Rusty Avila Anticipated date of discharge: 06/08/17 - Patient Status Disposition: Home, Self-Care Condition: Fair Overall status at discharge: patient is progressing back to baseline - Discharge Instructions Follow Up With: JERRY,PCP [Primary Care Provider] - (Nursing staff advised to provide patient information regarding follow-up at residency clinic or hospital Hotline for primary care physician's or she may choose her family physician of her own choice.) - Diet and Activity Activity: resume usual activities as tolerated Diet: advance to your usual diet (Patient is provided information to follow up with outpatient alcohol rehabilitation. She has to make first phone call. She should seek care from her family doctor in this regard if she has any issues.) Hospital course: maty Sher is a 36 year old female with a history of depression and PTSD as well as alcohol dependence who presented to the hospital in alcohol withdrawal requesting help with this. Patient states that she has a long-standing history of alcohol dependence in his drink a bottle of vodka a day. She tried to transition to beer and had severe alcohol withdrawal. Patient was seen by psychiatrist during this admission who has recommended outpatient treatment. Patient is willing to be involved in alcohol rehabilitation program as outpatient and social workers are alerted. Her alcohol withdrawal score is around 20 therefore her alcohol withdrawal protocol has been updated. I noted her white cell count has reduced quite significantly perhaps related to marrow suppression by alcohol but will keep an eye and recheck her electrolytes and cell counts. Count as low as expected due to alcohol. Patient is without any benzodiazepine for more than 24 hours now has been doing okay. She will be discharged home - Time Spent with Patient Total time spent providing and/or coordinating discharge services: - Constitutional Vitals: Temp Pulse Resp BP Pulse Ox 97.6 F 69 16 144/94 94 06/08/17 07:18 06/08/17 07:18 06/08/17 07:18 06/08/17 07:18 06/08/17 09:30 General appearance: Present: A&O X 3, no acute distress, answers questions appropriately - Head Head exam: Present: atraumatic, normocephalic - Eye Eye exam: Present: PERRL, conjuntiva pink, sclera anicteric Pupils: Present: PERRL - Neck Neck exam general surgery: Present: supple, trachea midline. Absent: lymphadenopathy - Respiratory Respiratory exam: Present: CTAB. Absent: accessory muscle use, rales, rhonchi, wheezes - Cardiovascular Cardiovascular exam: Present: RRR, +S1, +S2. Absent: diastolic murmur, gallop, rubs, systolic murmur - GI/Abdominal GI/Abdominal exam: Present: normal bowel sounds, soft, no peritoneal signs. Absent: distended, tenderness - Extremities Exam Extremities exam: Present: warm, radial pulses palpable and symetrical. Absent : calf tenderness, cyanotic, pedal edema - Neurological Exam Neurological exam: Present: CN II-XII intact, oriented X3, no focal deficits. Absent: pronater drift, facial droop, speech deficit - Skin Skin exam: Present: dry, intact - VTE Documentation of Mechanical Device: Intermittent pneumatic compression device
== END 2017-06-08 14:40 | disposition home or self-care (01) | DRG 897 ==
LOC: EMEROO 21:36 → 3BNU 21:36
PROVIDERS: ADMIT Internal Medicine Endocrinology, Diabetes & Metabolism; ATTEND Registered Nurse

== ENCOUNTER 2017-07-16 13:58 | Inpatient (IN) ==
[2017-07-16] MEDS ORDERED: 0.9 % Sodium Chloride 1,000 ML IVC ONE (14:04)
[2017-07-16] MEDS ORDERED: *HR* LORazepam 2 MG/ML VIAL IVP ONE ×2 (14:04→15:17)
--- NOTE | 2017-07-16 14:08 | Emergency Department Note ---
Disposition Clinical Impression: Alcohol abuse, Alcohol withdrawal Disposition: Admitted As Inpatient Condition: Good General Adult HPI - General Chief complaint: ED Psychiatric Symptoms Stated complaint: concern for alcohol withdrawl Time Seen by Provider: 07/16/17 14:01 Source: patient, EMS Limitations: no limitations - History of Present Illness Pain Scale: 0 - Related Data Home Medications Medication Instructions Recorded Confirmed Multivit with Calcium,Iron,Min 1 tab PO DAILY 03/27/17 07/16/17 [One Daily Women's] Potassium 99 mg PO DAILY 06/05/17 07/16/17 Allergies Allergy/AdvReac Type Severity Reaction Status Date / Time ibuprofen [From Motrin] Allergy Swelling Verified 06/14/17 23:09 of Lip/Tongue/Throat Past Medical History - Past Medical History Medical history: Reports: asthma, hyperlipidemia, hypertension, other Surgical history: Reports: other Psychiatric history: Reports: depression, PTSD, previous psychiatric hospitalization, other DYE WEIGHER history: Reports: no DYE WEIGHER history, bilateral tubal ligation - Social History Smoking Status: Current every day smoker Smokeless Tobacco Status: No Alcohol use: Reports: heavy, recent Drug use: Reports: marijuana Physical Exam - General Limitations: no limitations General appearance: alert Course - Reevaluation(s) Reevaluation #1: I saw the patient with the resident, Dr. Smith. Patient presents with a complaint about call withdrawal. She describes tremulousness and difficulty walking and visual hallucinations. She normally drinks a liter of vodka a day. She says it normally takes 2-3 hours for her to start having withdrawal symptoms. Her last several intake was at 10:00 this morning. On exam she is tremulous. Her mental status and neurologic examination are otherwise normal. I ordered lab workup and I ordered Ativan and fluids IV. Patient states the reason she came in rather than drinking more is that she does not want to and wants to quit drinking alcohol. We will give the patient to benzodiazepines for alcohol withdrawal and do the workup. We will have to decide if she needs to be admitted based on serial examinations and her response to the benzodiazepines. Time: 14:08 Vital Signs Temperature 97.4 F L 07/16/17 14:00 Pulse Rate 111 07/16/17 14:00 Respiratory Rate 22 07/16/17 14:00 Blood Pressure 146/125 07/16/17 14:00 O2 Sat by Pulse Oximetry 97 07/16/17 14:00 Temperature 98.6 F 07/16/17 19:56 Pulse Rate 95 07/16/17 19:56 Respiratory Rate 18 07/16/17 19:56 Blood Pressure 133/96 07/16/17 19:56 O2 Sat by Pulse Oximetry 100 07/16/17 19:56 Oxygen Delivery Oxygen Delivery Nasal Cannula Medical Decision Making - Lab Data Result diagrams: 07/16/17 14:12 07/16/17 14:12 Lab Results 07/16/17 07/16/17 07/16/17 Range/Units 14:12 14:12 14:12 WBC 5.3 (4.3-11.1) K/mcL RBC 4.37 (3.82-4.97) M/mcL Hgb 14.9 (11.5-15.4) g/dL Hct 44.1 (35.3-44.9) % MCV 100.9 H (83.0-100.0) fL MCH 34.1 H (28.0-33.3) pg MCHC 33.8 (31.6-35.5) g/dL RDW 13.0 (11.5-14.5) % Plt Count 173 (140-400) K/mcL MPV 9.8 (9.4-12.4) fL Immature Gran % 0.6 (0-4) % Seg Neutrophils % 53.4 % Lymphocytes % 35.8 % Monocytes % 9.2 % Eosinophils % 0.4 % Basophils % 0.6 % Neutrophils # 2.8 (1.6-8.9) K/mcL Lymphocytes # 1.9 (0.6-4.6) K/mcL Monocytes # 0.5 (0.0-1.3) K/mcL Eosinophils # 0.0 (0.0-0.6) K/mcL Basophils # 0.0 (0.0-0.2) K/mcL PT 9.8 (9.4-12.1) Seconds INR 0.9 APTT 27.6 (26.0-36.0) Seconds Sodium 140 (136-145) mEq/L Potassium 3.7 (3.5-4.5) mEq/L Chloride 102 (98-109) mEq/L Carbon Dioxide 21 (19-29) mEq/L BUN 8 (7-20) mg/dL Creatinine 0.84 (0.57-1.11) mg/dL Est GFR ( Amer) > 60 (> 60) Est GFR (Non-Af Amer) > 60 (> 60) BUN/Creatinine Ratio 10 (6-26) Glucose 141 H (70-99) mg/dL Calculated Osmolality 291 (280-300) Calcium 9.2 (8.6-10.8) mg/dL Total Bilirubin 0.6 (0.2-1.2) mg/dL Direct Bilirubin 0.2 (0.0-0.5) mg/dL Indirect Bilirubin 0.4 (0.0-1.2) mg/dL AST 161 H (5-34) Units/L ALT 77 H (0-55) Units/L Alkaline Phosphatase 135 H (38-126) Units/L Serum Total Protein 8.8 H (6.0-8.3) g/dL Albumin 4.2 (3.5-5.0) g/dL Globulin 4.6 H (2.4-3.5) g/dL Albumin/Globulin Ratio 0.9 L (1.1-2.2) Urine Color (Yellow) Urine Clarity (Clear) Urine pH (5.0-8.0) pH Units Ur Specific [place] (1.010-1.025) Urine Protein (Neg-Trace) mg/dL Urine Glucose (UA) (Normal) mg/dL Urine Ketones (Negative) mg/dL Urine Blood (Negative) Urine Nitrite (Negative) Urine Bilirubin (Negative) Urine Urobilinogen (Normal) mg/dL Ur Leukocyte Esterase (Negative) Urine Microscopic RBC Urine Microscopic WBC (0-3) per hpf Ur Squamous Epith Cells (None-Few) per lpf Urine Bacteria (None-Few) per hpf Hyaline Casts Ur Culture Indicated? (NO) Urine Test (Negative) Urine Opiates Screen (Txbfsh=876) ng/mL Ur Barbiturates Screen (Kchxkb=922) ng/mL Ur Phencyclidine Scrn (Cutoff=25) ng/mL Ur Amphetamines Screen (Gadfof=4905) ng/mL U Benzodiazepines Scrn (Wftqpj=882) ng/mL Urine Cocaine Screen (Cutoff= 300) ng/mL U Marijuana (THC) Screen (Cutoff = 50) ng/mL Ethyl Alcohol 267 H (0-10) mg/dL 07/16/17 07/16/17 07/16/17 Range/Units 14:42 14:42 14:42 WBC (4.3-11.1) K/mcL RBC (3.82-4.97) M/mcL Hgb (11.5-15.4) g/dL Hct (35.3-44.9) % MCV (83.0-100.0) fL MCH (28.0-33.3) pg MCHC (31.6-35.5) g/dL RDW (11.5-14.5) % Plt Count (140-400) K/mcL MPV (9.4-12.4) fL Immature Gran % (0-4) % Seg Neutrophils % % Lymphocytes % % Monocytes % % Eosinophils % % Basophils % % Neutrophils # (1.6-8.9) K/mcL Lymphocytes # (0.6-4.6) K/mcL Monocytes # (0.0-1.3) K/mcL Eosinophils # (0.0-0.6) K/mcL Basophils # (0.0-0.2) K/mcL PT (9.4-12.1) Seconds INR APTT (26.0-36.0) Seconds Sodium (136-145) mEq/L Potassium (3.5-4.5) mEq/L Chloride (98-109) mEq/L Carbon Dioxide (19-29) mEq/L BUN (7-20) mg/dL Creatinine (0.57-1.11) mg/dL Est GFR ( Amer) (> 60) Est GFR (Non-Af Amer) (> 60) BUN/Creatinine Ratio (6-26) Glucose (70-99) mg/dL Calculated Osmolality (280-300) Calcium (8.6-10.8) mg/dL Total Bilirubin (0.2-1.2) mg/dL Direct Bilirubin (0.0-0.5) mg/dL Indirect Bilirubin (0.0-1.2) mg/dL AST (5-34) Units/L ALT (0-55) Units/L Alkaline Phosphatase (38-126) Units/L Serum Total Protein (6.0-8.3) g/dL Albumin (3.5-5.0) g/dL Globulin (2.4-3.5) g/dL Albumin/Globulin Ratio (1.1-2.2) Urine Color Yellow (Yellow) Urine Clarity Clear (Clear) Urine pH 6.0 (5.0-8.0) pH Units Ur Specific [place] 1.008 L (1.010-1.025) Urine Protein 30 H (Neg-Trace) mg/dL Urine Glucose (UA) Normal (Normal) mg/dL Urine Ketones Negative (Negative) mg/dL Urine Blood Negative (Negative) Urine Nitrite Negative (Negative) Urine Bilirubin Negative (Negative) Urine Urobilinogen Normal (Normal) mg/dL Ur Leukocyte Esterase Negative (Negative) Urine Microscopic RBC Test Not Performed Urine Microscopic WBC 0-3 (0-3) per hpf Ur Squamous Epith Cells Few (None-Few) per lpf Urine Bacteria Few (None-Few) per hpf Hyaline Casts Test Not Performed Ur Culture Indicated? NO (NO) Urine Test Negative (Negative) Urine Opiates Screen Negative (Yhjqah=808) ng/mL Ur Barbiturates Screen Negative (Ichdyu=989) ng/mL Ur Phencyclidine Scrn Negative (Cutoff=25) ng/mL Ur Amphetamines Screen Negative (Ftgybb=3194) ng/mL U Benzodiazepines Scrn Negative (Yphdnc=598) ng/mL Urine Cocaine Screen Negative (Cutoff= 300) ng/mL U Marijuana (THC) Screen Negative (Cutoff = 50) ng/mL Ethyl Alcohol (0-10) mg/dL Attestation Statement - Attestation Attestation: I, Dr. Massey, examined this patient [id number] and my medical decision- making was reviewed with the Resident Physician, Dr. Smith. I agree with the documented findings, disposition and treatment plan as described except to the extent set forth below. Please see my progress notes for details.
[2017-07-16 14:24] LABS: Basophils % 0.6 %; Eosinophils % 0.4 %; Hematocrit 44.1 % (35.3-44.9); Hemoglobin 14.9 g/dL (11.5-15.4); Immature Granulocytes % 0.6 % (0-4); Lymphocytes # 1.9 K/mcL (0.6-4.6); Lymphocytes % 35.8 %; Mean Corpuscular HGB Conc 33.8 g/dL (31.6-35.5); Mean Corpuscular Hemoglobin 34.1 pg (28.0-33.3); Mean Corpuscular Volume 100.9 fL (83.0-100.0); Mean Platelet Volume 9.8 fL (9.4-12.4); Monocytes # 0.5 K/mcL (0.0-1.3); Monocytes % 9.2 %; Neutrophils # 2.8 K/mcL (1.6-8.9); Platelet Count 173 K/mcL (140-400); Red Blood Count 4.37 M/mcL (3.82-4.97); Segmented Neutrophils % 53.4 %
[2017-07-16 14:27] LABS: INR 0.9; Prothrombin Time 9.8 Seconds (9.4-12.1)
[2017-07-16 14:29] LABS: Activated Partial Thrombo Time 27.6 Seconds (26.0-36.0)
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
[2017-07-16 14:40] LABS: Alanine Aminotransferase 77 Units/L (0-55); Albumin 4.2 g/dL (3.5-5.0); Albumin/Globulin Ratio 0.9 (1.1-2.2); Alkaline Phosphatase 135 Units/L (38-126); Aspartate Amino Transferase 161 Units/L (5-34); BUN/Creatinine Ratio 10 (6-26); Bilirubin,Direct 0.2 mg/dL (0.0-0.5); Bilirubin,Indirect 0.4 mg/dL (0.0-1.2); Bilirubin,Total 0.6 mg/dL (0.2-1.2); Blood Urea Nitrogen 8 mg/dL (7-20); Calcium 9.2 mg/dL (8.6-10.8); Carbon Dioxide 21 mEq/L (19-29); Chloride 102 mEq/L (98-109); Globulin 4.6 g/dL (2.4-3.5); Glucose 141 mg/dL (70-99); Osmolality,Calculated 291 (280-300); Potassium 3.7 mEq/L (3.5-4.5); Sodium 140 mEq/L (136-145); Total Protein 8.8 g/dL (6.0-8.3); eGFR For African Americans > 60 (> 60); eGFR For Non-African Americans > 60 (> 60)
[2017-07-16 14:55] LABS: Bilirubin,Urine Negative (Negative); Blood,Urine Negative (Negative); Clarity,Urine Clear (Clear); Color,Urine Yellow (Yellow); Glucose,Urine (UA) Normal (Normal); Ketones,Urine Negative (Negative); Leukocyte Esterase,Urine Negative (Negative); Nitrite,Urine Negative (Negative); Protein,Urine 30 mg/dL (Neg-Trace); Specific Gravity,Urine 1.008 (1.010-1.025); Urobilinogen,Urine Normal (Normal)
[2017-07-16 15:06] LABS: Ethanol 267 mg/dL (0-10)
[2017-07-16 15:08] LABS: Amphetamine Screen,Urine Negative ng/mL (Cutoff=1000); Barbiturate Screen,Urine Negative ng/mL (Cutoff=200); Benzodiazepines Screen,Urine Negative ng/mL (Cutoff=200); Cannabinoid Screen,Urine Negative ng/mL (Cutoff = 50); Cocaine Screen,Urine Negative ng/mL (Cutoff= 300); Opiate Screen,Urine Negative ng/mL (Cutoff=300); Phencyclidine Screen,Urine Negative ng/mL (Cutoff=25)
[2017-07-16 15:24] LABS: Bacteria,Urine Few per hpf (None-Few); Squamous Epithelial Cell,Urine Few per lpf (None-Few); WBC,Urine 0-3 per hpf (0-3)
[2017-07-16] MEDS ORDERED: Naloxone 0.4 MG/ML INJ IVP PRN (16:31)
[2017-07-16] MEDS ORDERED: Acetaminophen 325 MG TABLET PO PRN (16:31)
[2017-07-16] MEDS ORDERED: Ondansetron 4 MG/2 ML VIAL IVP PRN (16:31)
[2017-07-16] MEDS ORDERED: *HR* LORazepam 2 MG/ML VIAL IVP PRN ×2 (16:32)
--- NOTE | 2017-07-16 16:52 | Internal Med History&Physical ---
<Marni Morelos - Last Filed: 07/16/17 17:03> Date of Encounter: 07/16/17 Time of Encounter: 16:49 Assessment and Plan (1) Alcohol withdrawal Current visit: No Status: Acute Known EtOH abuse, has had multiple admissions for same sx's. Last drink on day of presentation. BAL 247. Appears tremulous in the ED after receiving IV Ativan. Monitor with CIWA protocol, IV thiamine, IV fluids, folic acid, IV PPI, aspiration precautions Qualifiers: Qualified Code(s): F10.230 - Alcohol dependence with withdrawal, uncomplicated (2) Alcoholic liver disease Current visit: Yes Status: Acute Suspected with elevated LFTs and EtOH history. LFTs elevated, denies abdominal pain. 03/[address] showed gallbladder sludge and enlarged liver. Will obtain ABD US. Monitor repeat LFTs (3) MDD (major depressive disorder), recurrent episode, severe Current visit: No Status: Chronic per hx bot on any medications at present. No suicidal ideation. Was evaluated by psych on 05/2017 admission who recommended outpatient follow-up, patient had refused medication at that time. Reassess mood once more alert, awake and out of EtOH withdrawal. Consider psych consult if patient agreeable to medication. Qualifiers: Psychotic features: without psychotic features Qualified Code(s): F33.2 - Major depressive disorder, recurrent severe without psychotic features (4) DVT prophylaxis Current visit: No Status: Acute [facility] - H&P: HPI Chief complaint: I had the shakes Admitted From: Home Plans for Post Hospital Care: Home History of present illness: Ms. Sher is a 36 year old female with past medical history alcohol abuse and depression who presented to [facility] on 07/16/2017 with complaints of being an alcohol withdrawal. She was placed in observation status for further workup and treatment. Information obtained from chart review and patient report, although patient is altered after receiving IV Ativan and EGD and currently in alcohol withdrawal. She is drowsy but does tell me that she last drank at 10:00 this morning. Said she had the shakes when she woke up so she took a shot of vodka, thinkin that would help. Says she still has had the shakes so came to ER. She says she does want to quit drinking and is agreeable to stay inpatient. Denies chest pain no shortness of breath. No abdominal pain, no nausea vomiting or diarrhea Past Med Surg Social Fam HX - Past Medical History Medical history: asthma, hyperlipidemia, hypertension, other Psychiatric history: depression, PTSD, previous psychiatric hospitalization, other - Past Surgical History Surgical History: other - Social History Smoking Status: Current every day smoker Smokeless Tobacco Status: No Alcohol use: heavy, recent Drug use: marijuana - Family History Maternal Grandmother Family Member Ethnicity: Non- Living Status: Hx Family Cancer: Yes (Throat cancer) Internal Medicine - H&P: Meds Multivit with Calcium,Iron,Min [One Daily Women's] 1 tab PO DAILY 03/27/17 [ History] Potassium 99 mg PO DAILY 06/05/17 [History] ibuprofen [From Motrin] Allergy (Verified 06/14/17 23:09) Swelling of Lip/Tongue/Throat All Systems PM: A 10-system review of systems was performed and is negative for pertinent findings except as documented above in the HPI. - Constitutional Constitutional: lethargy, malaise, no chills, no fever(s), no night sweats - EENT Eyes: no change in vision, no discharge, no pain, no photophobia Ears: no ear discharge, no ear pain, no tinnitus Nose, mouth and throat: no dysphagia, no nasal discharge, no neck pain, no sore throat - Cardiovascular Cardiovascular ROS IM: no chest pain, no diaphoresis, no dyspnea, no lightheadedness, no palpitations, no syncope - Respiratory Respiratory: no cough, no dyspnea, no wheezing, no excessive phlegm production - Gastrointestinal Gastrointestinal: no abdominal pain, no diarrhea, no hematemesis, no hematochezia, no melena, no nausea, no vomiting - Genitourinary Genitourinary: no change in urinary stream, no dysuria, no flank pain, no hematuria - Musculoskeletal Musculoskeletal ROS IM: no numbness, no tingling - Integumentary Integumentary IM: no rash, no unusual bruising - Neurological Neurological ROS: tremor(s), no confusion, no convulsions, no focal weakness, no numbness, no tingling - Hematologic/Lymphatic Hematologic/Lymphatic: no easy bruising - Constitutional Vitals: Temp Pulse Resp BP Pulse Ox 99.5 F 99 14 106/83 95 07/16/17 16:44 07/16/17 16:03 07/16/17 16:03 07/16/17 16:03 07/16/17 16:03 General appearance: Present: A&O X 3 Exam: Drowsy - Head Head exam: Present: atraumatic, normocephalic - Eye Eye exam: Present: PERRL, conjuntiva pink, sclera anicteric Pupils: Present: PERRL - Neck Neck exam general surgery: Present: supple, trachea midline. Absent: lymphadenopathy - Respiratory Respiratory exam: Present: CTAB. Absent: accessory muscle use, rales, rhonchi, wheezes - Cardiovascular Cardiovascular exam: Present: RRR, +S1, +S2. Absent: diastolic murmur, gallop, rubs, systolic murmur - GI/Abdominal GI/Abdominal exam: Present: normal bowel sounds, soft, no peritoneal signs. Absent: distended, tenderness - Extremities Exam Extremities exam: Present: warm, radial pulses palpable and symmetrical. Absent : calf tenderness, cyanotic, pedal edema - Neurological Exam Neurological exam: Present: CN II-XII intact, oriented X3, no focal deficits. Absent: pronater drift, facial droop, speech deficit - Skin Skin exam: Present: dry, intact Internal Med - H&P Results - Labs CBC & Chem 7: 07/16/17 14:12 07/16/17 14:12 <Rusty Avila - Last Filed: 07/16/17 19:47> Date of Encounter: 07/16/17 Internal Medicine - H&P: HPI History of present illness: Ms. Sher is a 36 year old female All Systems PM: A 10-system review of systems was performed and is negative for pertinent findings except as documented above in the HPI. - Constitutional Vitals: Temp Pulse Resp BP Pulse Ox 98.6 F 111 14 110/84 95 07/16/17 17:32 07/16/17 17:32 07/16/17 17:32 07/16/17 17:32 07/16/17 17:32 Internal Med - H&P Results - Labs CBC & Chem 7: 07/16/17 14:12 07/16/17 14:12 - Attending Attestation I examined this patient and my medical decision-making was reviewed with the advanced nurse practitioner. I agree with the documented findings, disposition and treatment plan as described except to the extent set forth below. Patient was examined and person. She is trembling badly. Still awake alert and able to follow commands. Lungs clear to auscultation percussion no wheezing thousand of heart S1 and S2 rate with regular gallop rhythm abdomen soft nontender no organomegaly bowel sounds active extremities no edema peripheral pulses +3 symmetrical. Neuro as noted above. She is on CIWA scale and transferred to 2 N. stepdown unit. RN is advised to give 10 mg IV Valium in addition to Ativan.
[2017-07-16] MEDS ORDERED: Ipratropium/Albuterol Neb 3 ML IH PRN (17:16)
[2017-07-16] MEDS ORDERED: diazePAM 10 MG/2 ML SYRINGE IVP STA (19:44)
[2017-07-16] MEDS: 0.9 % Sodium Chloride 1,000 ML IVC SCH (20:09)
[2017-07-16] MEDS: Thiamine (B-1) 100 MG, Folic Acid 1 MG, MVI, adult with vitamin K 10 ML in 0.9 % Sodi... IVPB SCH (20:10)
[2017-07-16] MEDS: *HR* LORazepam 2 MG/ML VIAL IVP PRN (20:21)
[2017-07-17 06:00] LABS: Hematocrit 40.8 % (35.3-44.9); Hemoglobin 13.4 g/dL (11.5-15.4); Mean Corpuscular HGB Conc 32.8 g/dL (31.6-35.5); Mean Corpuscular Hemoglobin 33.8 pg (28.0-33.3); Mean Corpuscular Volume 102.8 fL (83.0-100.0); Mean Platelet Volume 10.3 fL (9.4-12.4); Platelet Count 135 K/mcL (140-400); Red Blood Count 3.97 M/mcL (3.82-4.97); Red Cell Distribution Width 12.9 % (11.5-14.5)
[2017-07-17 06:15] LABS: Alanine Aminotransferase 58 Units/L (0-55); Alkaline Phosphatase 112 Units/L (38-126); Aspartate Amino Transferase 122 Units/L (5-34); BUN/Creatinine Ratio 21 (6-26); Bilirubin,Total 0.9 mg/dL (0.2-1.2); Blood Urea Nitrogen 14 mg/dL (7-20); Calcium 8.6 mg/dL (8.6-10.8); Carbon Dioxide 26 mEq/L (19-29); Chloride 106 mEq/L (98-109); Globulin 3.3 g/dL (2.4-3.5); Glucose 87 mg/dL (70-99); Osmolality,Calculated 288 (280-300); Potassium 3.7 mEq/L (3.5-4.5); Sodium 139 mEq/L (136-145); eGFR For African Americans > 60 (> 60); eGFR For Non-African Americans > 60 (> 60)
[2017-07-17 06:16] LABS: Albumin 3.2 g/dL (3.5-5.0); Total Protein 6.5 g/dL (6.0-8.3)
[2017-07-17] MEDS: *HR* Enoxaparin 40 MG/0.4 ML SYRINGE SQ SCH (06:51)
[2017-07-17] MEDS: *HR* LORazepam 2 MG/ML VIAL IVP PRN ×4 (07:48→22:22)
[2017-07-17] MEDS: Nicotine 21 MG PATCH.TD24 TD SCH (10:45)
--- NOTE | 2017-07-17 17:17 | Internal Med Progress Note ---
Date of Encounter: 07/17/17 Time of Encounter: 10:15 - Assessment and plan (1) Alcohol withdrawal Current Visit: No Status: Acute Assessment and plan: Known history of alcohol abuse - multiple admissions for alcohol intoxication and alcohol withdrawal Blood alcohol level - 247 Patient presented with tremors - was given IV Ativan in the ED Continue IV fluids, IV Ativan as needed and IV thiamine/folic acid Continue supportive care, psych consult pending Qualifiers: Qualified Code(s): F10.230 - Alcohol dependence with withdrawal, uncomplicated (2) Alcohol abuse Current Visit: No Status: Chronic Assessment and plan: Chronic alcohol abuse - counseled about cessation financial services agent consult (3) Alcoholic liver disease Current Visit: Yes Status: Chronic Assessment and plan: Hepatomegaly and diffuse steatosis seen on ultrasound gallbladder - secondary to alcohol abuse Hepatitis panel pending Needs outpatient gastroenterology follow-up (4) MDD (major depressive disorder), recurrent episode, severe Current Visit: No Status: Chronic Assessment and plan: No suicidal ideation - patient has refused medication We will need psychiatry follow-up Qualifiers: Psychotic features: without psychotic features Qualified Code(s): F33.2 - Major depressive disorder, recurrent severe without psychotic features (5) Tobacco abuse disorder Current Visit: No Status: Chronic Assessment and plan: Counseled about cessation, nicotine patch (6) DVT prophylaxis Current Visit: No Status: Acute Assessment and plan: Continue Lovenox subcutaneous - Time Spent With Patient 25 - 35 minutes - Subjective Interval history: Examined this morning. Patient is awake and alert. Not in any distress. Denies chest pain or shortness of breath. No fever. Hemodynamically stable. Patient complains of tremors and anxiety. No vomiting. Denies abdominal pain. CIWA protocol continued. No other acute events or complaints. Admitted for alcohol withdrawal. - Constitutional Vitals: Temp Pulse Resp BP Pulse Ox 98.6 F 97 18 161/115 93 07/17/17 16:00 07/17/17 16:00 07/17/17 16:00 07/17/17 16:00 07/17/17 16:00 General appearance: Present: cooperative, A&O X 3, no acute distress, answers questions appropriately Exam: Generalized weakness, ill-appearing, anxious - Head Head exam: Present: atraumatic - Eye Eye exam: Present: EOMI - ENT ENT exam: Present: mucous membranes dry - Respiratory Respiratory exam: Present: wheezes (Mild bilateral). Absent: rales, rhonchi, tachypnea - Cardiovascular Cardiovascular exam: Present: RRR, +S1, +S2 - GI/Abdominal GI/Abdominal exam: Present: soft. Absent: distended, firm, guarding, tenderness - Extremities Exam Extremities exam: Present: radial pulses palpable and symmetrical. Absent: cyanotic, pedal edema - Neurological Exam Neurological exam: Present: alert, oriented X3, no focal deficits. Absent: facial droop, speech deficit Internal Medicine: Result - Labs CBC & Chem 7: 07/17/17 04:46 07/17/17 04:46 Labs: Short CBC 07/17/17 Range/Units 04:46 WBC 6.5 (4.3-11.1) K/mcL Hgb 13.4 D (11.5-15.4) g/dL Hct 40.8 (35.3-44.9) % Plt Count 135 L (140-400) K/mcL BMP 07/17/17 04:46 Sodium 139 Potassium 3.7 Chloride 106 Carbon Dioxide 26 BUN 14 Creatinine 0.66 Glucose 87 Calcium 8.6 Liver Function 07/17/17 Range/Units 04:46 Total Bilirubin 0.9 (0.2-1.2) mg/dL AST 122 H (5-34) Units/L ALT 58 H (0-55) Units/L Alkaline Phosphatase 112 (38-126) Units/L Albumin 3.2 L D (3.5-5.0) g/dL - ABG Interpretation ABG results: PT/INR, D-dimer PT 9.8 Seconds (9.4-12.1) 07/16/17 14:12 - Impressions Impressions Gallbladder Ultrasound 07/17/17 08:30 IMPRESSION: Hepatomegaly and diffuse steatosis. No focal lesion. D/ / Brien Falk MD / Brien Falk MD Interpreting Provider: Brien Falk MD Consult Discharge Plan - Plan Referrals: Parish Guardado DO [Resident] - 07/25/17 10:00 am (PLEASE SHOW UP 30 MINUTES EARLY TO FILL OUT PAPER WORK. TAKE WITH YOU TO YOUR APPOINTMENT PICTURE ID, INSURANCE CARDS, ALL MEDICATION IN THE BOTTLES. IF YOU HAVE TO KEEGAN PLEASE CALL [phone] WITHIN 24 HOURS OF YOUR APPOINTMENT. THE OFFICE IS LOCATED DOWN BY THE [employer] [facility] )
[2017-07-17] MEDS: Piperacillin/Tazobactam 3.375 GM in D5% in Water (Mini-Bag+) 100 ML IVPB SCH (18:41)
[2017-07-17] MEDS: Thiamine (B-1) 100 MG, Folic Acid 1 MG, MVI, adult with vitamin K 10 ML in 0.9 % Sodi... IVPB SCH (18:49)
[2017-07-17] MEDS ORDERED: *HR* Metoprolol 5 MG/5 ML VIAL IVP PRN (20:06)
--- NOTE | 2017-07-18 00:54 | Event Note ---
Date of Encounter: 07/17/17 Time of Encounter: 22:00 Paged by nurse about BP. Two to three BP readings in 150-160s/110-120s. Asymptomatic. Patient is on CIWA protocol, still having high BP readings despite CIWA for withdrawal. Pulse in 90s. Will order IV lopressor 5mg q6h PRN.
[2017-07-18] MEDS: 0.9 % Sodium Chloride 1,000 ML IVC SCH (01:11)
[2017-07-18] MEDS: *HR* LORazepam 2 MG/ML VIAL IVP PRN ×2 (03:38→09:56)
[2017-07-18] MEDS: Piperacillin/Tazobactam 3.375 GM in D5% in Water (Mini-Bag+) 100 ML IVPB SCH (03:38)
[2017-07-18] MEDS: *HR* Enoxaparin 40 MG/0.4 ML SYRINGE SQ SCH (05:54)
[2017-07-18] MEDS: Nicotine 21 MG PATCH.TD24 TD SCH (08:21)
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
[2017-07-18 11:36] VITALS: BP 145/111
[2017-07-18 11:43] LABS: Hepatitis A Antibody IgM Nonreactive (Nonreactive); Hepatitis B Core IgM Nonreactive (Nonreactive); Hepatitis B Surface Antigen Nonreactive (Nonreactive); Hepatitis C Virus Antibody Nonreactive (Nonreactive)
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
[2017-07-18 14:20] LABS: Hepatitis A Antibody IgM Nonreactive (Nonreactive); Hepatitis B Core IgM Nonreactive (Nonreactive)
[2017-07-18 15:39] LABS: HIV-1&2 Antibody & p24 Ag Nonreactive (Nonreactive); Hepatitis B Surface Antigen Nonreactive (Nonreactive); Hepatitis C Virus Antibody Nonreactive (Nonreactive)
== END 2017-07-18 15:55 | disposition home or self-care (01) | DRG 897 ==
LOC: 3BNU 13:58 → EMEROO 13:58 → 3BNU 17:10 → 2NNU 19:54
PROVIDERS: ADMIT Registered Nurse; ATTEND Registered Nurse

== ENCOUNTER 2018-04-12 17:25 | Observation (INO) ==
[2018-04-12 18:35] LABS: Bilirubin,Urine Negative (Negative); Blood,Urine Negative (Negative); Clarity,Urine Clear (Clear); Color,Urine Yellow (Yellow); Glucose,Urine (UA) Normal (Normal); Ketones,Urine Negative (Negative); Leukocyte Esterase,Urine Negative (Negative); Nitrite,Urine Negative (Negative); Protein,Urine Negative (Neg-Trace); Specific Gravity,Urine 1.012 (1.010-1.025); Urobilinogen,Urine Normal (Normal)
[2018-04-12 18:45] LABS: Amphetamine Screen,Urine Negative ng/mL (Cutoff=1000); Barbiturate Screen,Urine Negative ng/mL (Cutoff=200); Benzodiazepines Screen,Urine Negative ng/mL (Cutoff=200); Cannabinoid Screen,Urine Positive ng/mL (Cutoff = 50); Cocaine Screen,Urine Negative ng/mL (Cutoff= 300); Opiate Screen,Urine Negative ng/mL (Cutoff=300); Phencyclidine Screen,Urine Negative ng/mL (Cutoff=25)
[2018-04-12 18:52] LABS: Basophils # 0.1 K/mcL (0.0-0.2); Basophils % 0.7 %; Eosinophils # 0.4 K/mcL (0.0-0.6); Eosinophils % 4.3 %; Hematocrit 45.4 % (35.3-44.9); Hemoglobin 15.4 g/dL (11.5-15.4); Immature Granulocytes % 0.4 % (0-4); Lymphocytes # 1.9 K/mcL (0.6-4.6); Lymphocytes % 20.6 %; Mean Corpuscular HGB Conc 33.9 g/dL (31.6-35.5); Mean Corpuscular Hemoglobin 33.3 pg (28.0-33.3); Mean Corpuscular Volume 98.1 fL (83.0-100.0); Mean Platelet Volume 9.6 fL (9.4-12.4); Monocytes # 0.5 K/mcL (0.0-1.3); Monocytes % 4.9 %; Neutrophils # 6.5 K/mcL (1.6-8.9); Platelet Count 255 K/mcL (140-400); Red Blood Count 4.63 M/mcL (3.82-4.97); Segmented Neutrophils % 69.1 %
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
[2018-04-12 19:12] LABS: Acetaminophen < 10 mcg/mL (10-20); BUN/Creatinine Ratio 19 (6-26); Blood Urea Nitrogen 9 mg/dL (6-20); Calcium 9.3 mg/dL (8.6-10.3); Carbon Dioxide 23 mEq/L (23-29); Chloride 106 mEq/L (98-107); Ethanol 123 mg/dL (Less than 10); Glucose 131 mg/dL (70-105); Osmolality,Calculated 290 (280-300); Potassium 3.5 mEq/L (3.5-5.1); Salicylate < 2.5 mg/dL (15.0-30.0); Sodium 140 mEq/L (136-145); eGFR For African Americans > 60 (> 60); eGFR For Non-African Americans > 60 (> 60)
[2018-04-12] MEDS: Nicotine 21 MG PATCH.TD24 TD SCH (21:02)
[2018-04-12] MEDS ORDERED: Acetaminophen 325 MG TABLET PO ONE (21:08)
[2018-04-12] MEDS: *HR* LORazepam 0.5 MG TABLET PO ONE (21:38)
[2018-04-12] MEDS ORDERED: Ondansetron ODT 4 MG TAB.RAPDIS SL ONE (23:03)
[2018-04-12] MEDS ORDERED: *HR* LORazepam 0.5 MG TABLET PO ONE (23:03)
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
[2018-04-13] MEDS: *HR* LORazepam 0.5 MG TABLET PO ONE (02:08)
[2018-04-13] MEDS ORDERED: Naloxone 0.4 MG/ML INJ IVP PRN (03:50)
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
[2018-04-13] MEDS: 0.9 % Sodium Chloride w KCl 20 MEQ/1,000 ML MLS IVC SCH ×2 (04:37→13:45)
[2018-04-13] MEDS: *HR* LORazepam 2 MG/ML VIAL IVP PRN ×4 (04:39→21:25)
[2018-04-13] MEDS: Acetaminophen 325 MG TABLET PO PRN ×3 (04:59→18:47)
[2018-04-13] MEDS: *HR* Heparin 5,000 UNIT/ML VIAL SQ SCH ×2 (05:03→17:15)
[2018-04-13 05:22] LABS: Basophils # 0.1 K/mcL (0.0-0.2); Basophils % 1.7 %; Eosinophils # 0.5 K/mcL (0.0-0.6); Eosinophils % 8.3 %; Hematocrit 43.3 % (35.3-44.9); Hemoglobin 14.3 g/dL (11.5-15.4); Immature Granulocytes % 0.3 % (0-4); Lymphocytes % 31.9 %; Mean Corpuscular Hemoglobin 32.6 pg (28.0-33.3); Mean Corpuscular Volume 98.9 fL (83.0-100.0); Mean Platelet Volume 9.5 fL (9.4-12.4); Monocytes # 0.5 K/mcL (0.0-1.3); Neutrophils # 3.2 K/mcL (1.6-8.9); Platelet Count 212 K/mcL (140-400); Red Blood Count 4.38 M/mcL (3.82-4.97); Red Cell Distribution Width 12.9 % (11.5-14.5); Segmented Neutrophils % 49.8 %
[2018-04-13 05:42] LABS: Alanine Aminotransferase 21 Units/L (7-52); Albumin 3.8 g/dL (3.5-5.7); Albumin/Globulin Ratio 1.3 (1.1-2.2); Alkaline Phosphatase 98 Units/L (34-104); Aspartate Amino Transferase 34 Units/L (13-39); BUN/Creatinine Ratio 22 (6-26); Bilirubin,Total 0.6 mg/dL (0.3-1.0); Blood Urea Nitrogen 11 mg/dL (6-20); Carbon Dioxide 23 mEq/L (23-29); Chloride 107 mEq/L (98-107); Glucose 114 mg/dL (70-105); Magnesium 2.1 mg/dL (1.6-2.6); Osmolality,Calculated 282 (280-300); Potassium 3.8 mEq/L (3.5-5.1); Sodium 136 mEq/L (136-145); Total Protein 6.8 g/dL (6.4-8.9); eGFR For African Americans > 60 (> 60); eGFR For Non-African Americans > 60 (> 60)
[2018-04-13] MEDS: Vitamin B Complex/Vit C/Vit E 1 EACH TABLET PO SCH (07:57)
[2018-04-13] MEDS: Thiamine (B-1) 100 MG TABLET PO SCH (07:57)
[2018-04-13] MEDS: Folic Acid 1 MG TABLET PO SCH (07:57)
[2018-04-13] MEDS: Nicotine 21 MG PATCH.TD24 TD SCH (07:58)
[2018-04-13] MEDS ORDERED: Methyl Salicylate/Menthol 28 GM TUBE TP PRN (14:06)
[2018-04-13] MEDS ORDERED: *HR* LORazepam 2 MG/ML VIAL IVP PRN (15:25)
--- NOTE | 2018-04-13 16:11 | Consult Note ---
Date of Encounter: 04/13/18 Time of Encounter: 15:45 Assessment & Recommendation (1) Bipolar disorder with depression Current visit: Yes Status: Acute (2) Suicidal ideation Current visit: Yes Status: Acute (3) Polysubstance (excluding opioids) dependence Current visit: No Status: Acute (4) Alcohol withdrawal Current visit: No Status: Acute Qualifiers: Complication of substance-induced condition: uncomplicated Qualified Code(s ): F10.230 - Alcohol dependence with withdrawal, uncomplicated (5) Depression Current visit: No Status: Chronic Qualifiers: Depression Type: major depressive disorder Major depression recurrence: recurrent Active/Remission status: remission status unspecified Qualified Code(s): F33.9 - Major depressive disorder, recurrent, unspecified (6) Anxiety Current visit: No Status: Chronic History of Present Illness Requesting Physician: Dmitri Amor MD History of present illness: Pt is a 37 yo, , female, who presents for alcohol use D/O, mood and depression. Pt noted that she feels she is improving slowly. Pt noted she has been feeling depressed and has a hx of bipolar D/O and would like to take medication for it. Pt agreed to initiate lurasidone 20 mg PO everyday for mood. Pt was educated on the risks benifits and side-effects of the medications including no medications. Pt was educated on TD and how it can be pernment, pt was in agreement. Pt denied any side effects to current medications. Pt noted she felt safe and comfortable on the unit. Pt was in agreement with treatment plan. Pt noted that she is doing better today. Pt noted she slept 11 hours last night. Pt noted her appetite is reduced. Pt rated her depression a 8, on a scale of zero to ten with ten being the worst and zero being none. Pt rate her anxiety a 9, on the same scale. Pt denied any auditory or visual hallucinations. Pt noted hx of multiple manic episodes. Pt denied any thoughts to harm herself or anyone else. Tobacco: 1/2 PPD Alcohol: 1 and 1/2 pints of vodka per day and beer Street: klonopins occasionally and marijuana Caffeine: 2-3 per day AIMS= 0 No TD noted MSE: Alert and Oriented x4 Appearance: neatly groomed dressed in appropriate hospital Behavior: friendly, courteous, polite Speech: Fluent, normal tone, normal rate Mood: depressed Affect: mood congruent Thought content: no HI noted, no SI noted, No delusions noted Psychosis: none noted, currently not responding to internal stimuli Thought Process: Linear coherent goal directed Judgment: fair/questionable. Insight: fair/questionable. 1.Interval hx 2.Continue current medications 3.Review current labs 4.Pt had an opportunity to ask questions and discuss current treatment plan. 5.Supportive therapy was provided 6.Pt encouraged to consider group or individual therapy 7.Pt was in agreement with treatment plan. 8.Pt was educated on the risks benefits and side effects of current medications. 9. Start lurasidone 20 mg pO everyday with 300 kcal of food. CC: Dmitri Amor MD Past Med Surg Social Fam HX - Past Medical History Medical history: asthma, hyperlipidemia, hypertension - Past Psychiatric History Psychiatric history: Reports: bipolar Family psychiatric history: Yes Family History of Suicide: None - Past Surgical History Surgical History: other - Social History Smoking Status: Current every day smoker Smokeless Tobacco Status: No Alcohol use: recent Drug use: marijuana, prescription drug abuse - Family History Maternal Grandmother Family Member Ethnicity: Non- Living Status: Hx Family Cancer: Yes (Throat cancer) Medications & Allergies Multivitamin [One Daily Multivitamin] 1 tab PO DAILY 04/13/18 [History] 3 Allergy/AdvReac Type Severity Reaction Status Date / Time ibuprofen [From Motrin] Allergy Swelling Verified 04/13/18 11:08 of Lip/Tongue/Throat Psychiatry Exam - Constitutional Vitals: Temp Pulse Resp BP Pulse Ox 98.4 F 87 14 135/85 95 04/13/18 14:09 04/13/18 14:09 04/13/18 02:38 04/13/18 14:09 04/13/18 14:09 - Psychiatric Patient Orientation: Yes Person, Yes Time, Yes Place, Yes Circumstance Level of alertness: Alert Behavior: calm, cooperative Psychomotor activity: Normal Eye Contact: Maintains Eye Contact Mood Description: Euthymic/stable, Depressed Affect description: congruent with mood Speech Volume: Normal Speech pattern: normal rate, normal rhythm, normal tone, fluent Language & Vocabulary: consistent with education Thought Process: Intact, Logical, Linear, Goal Oriented Thought Content: Yes Intact Attention Span Ability: Capable of Focused Attention Memory Description: Grossly Intact Patient Reliability: Reliable Historian Fund of knowledge: Yes average Intelligence Estimate: Average Judgment: Fair Insight: Full Results - Labs Labs: Laboratory Last Values WBC 6.4 K/mcL (4.3-11.1) 04/13/18 05:12 RBC 4.38 M/mcL (3.82-4.97) 04/13/18 05:12 Hgb 14.3 g/dL (11.5-15.4) 04/13/18 05:12 Hct 43.3 % (35.3-44.9) 04/13/18 05:12 MCV 98.9 fL (83.0-100.0) 04/13/18 05:12 MCH 32.6 pg (28.0-33.3) 04/13/18 05:12 MCHC 33.0 g/dL (31.6-35.5) 04/13/18 05:12 RDW 12.9 % (11.5-14.5) 04/13/18 05:12 Plt Count 212 K/mcL (140-400) 04/13/18 05:12 MPV 9.5 fL (9.4-12.4) 04/13/18 05:12 Immature Gran % 0.3 % (0-4) 04/13/18 05:12 Seg Neutrophils % 49.8 % 04/13/18 05:12 Lymphocytes % 31.9 % 04/13/18 05:12 Monocytes % 8.0 % 04/13/18 05:12 Eosinophils % 8.3 % 04/13/18 05:12 Basophils % 1.7 % 04/13/18 05:12 Neutrophils # 3.2 K/mcL (1.6-8.9) 04/13/18 05:12 Lymphocytes # 2.0 K/mcL (0.6-4.6) 04/13/18 05:12 Monocytes # 0.5 K/mcL (0.0-1.3) 04/13/18 05:12 Eosinophils # 0.5 K/mcL (0.0-0.6) 04/13/18 05:12 Basophils # 0.1 K/mcL (0.0-0.2) 04/13/18 05:12 Sodium 136 mEq/L (136-145) 04/13/18 05:12 Potassium 3.8 mEq/L (3.5-5.1) 04/13/18 05:12 Chloride 107 mEq/L (98-107) 04/13/18 05:12 Carbon Dioxide 23 mEq/L (23-29) 04/13/18 05:12 BUN 11 mg/dL (6-20) 04/13/18 05:12 Creatinine 0.50 mg/dL (0.60-1.20) L 04/13/18 05:12 Est GFR ( Amer) > 60 (> 60) 04/13/18 05:12 Est GFR (Non-Af Amer) > 60 (> 60) 04/13/18 05:12 BUN/Creatinine Ratio 22 (6-26) 04/13/18 05:12 Glucose 114 mg/dL (70-105) H 04/13/18 05:12 Calculated Osmolality 282 (280-300) 04/13/18 05:12 Calcium 9.0 mg/dL (8.6-10.3) 04/13/18 05:12 Magnesium 2.1 mg/dL (1.6-2.6) 04/13/18 05:12 Total Bilirubin 0.6 mg/dL (0.3-1.0) 04/13/18 05:12 AST 34 Units/L (13-39) 04/13/18 05:12 ALT 21 Units/L (7-52) 04/13/18 05:12 Alkaline Phosphatase 98 Units/L (34-104) 04/13/18 05:12 Serum Total Protein 6.8 g/dL (6.4-8.9) 04/13/18 05:12 Albumin 3.8 g/dL (3.5-5.7) 04/13/18 05:12 Globulin 3.0 g/dL (2.4-3.5) 04/13/18 05:12 Albumin/Globulin Ratio 1.3 (1.1-2.2) 04/13/18 05:12 Urine Color Yellow (Yellow) 04/12/18 18:00 Urine Clarity Clear (Clear) 04/12/18 18:00 Urine pH 6.0 pH Units (5.0-8.0) 04/12/18 18:00 Ur Specific [place] 1.012 (1.010-1.025) 04/12/18 18:00 Urine Protein Negative mg/dL (Neg-Trace) 04/12/18 18:00 Urine Glucose (UA) Normal mg/dL (Normal) 04/12/18 18:00 Urine Ketones Negative mg/dL (Negative) 04/12/18 18:00 Urine Blood Negative (Negative) 04/12/18 18:00 Urine Nitrite Negative (Negative) 04/12/18 18:00 Urine Bilirubin Negative (Negative) 04/12/18 18:00 Urine Urobilinogen Normal mg/dL (Normal) 04/12/18 18:00 Ur Leukocyte Esterase Negative (Negative) 04/12/18 18:00 Salicylates < 2.5 mg/dL (15.0-30.0) L 04/12/18 18:19 Urine Opiates Screen Negative ng/mL (Zbnswa=716) 04/12/18 18:00 Acetaminophen < 10 mcg/mL (10-20) L 04/12/18 18:19 Ur Barbiturates Screen Negative ng/mL (Maafws=142) 04/12/18 18:00 Ur Phencyclidine Scrn Negative ng/mL (Cutoff=25) 04/12/18 18:00 Ur Amphetamines Screen Negative ng/mL (Qvhvpp=3544) 04/12/18 18:00 U Benzodiazepines Scrn Negative ng/mL (Gdqlgf=929) 04/12/18 18:00 Urine Cocaine Screen Negative ng/mL (Cutoff= 300) 04/12/18 18:00 U Marijuana (THC) Screen Positive ng/mL (Cutoff = 50) H 04/12/18 18:00 Ethyl Alcohol 26 mg/dL (Less than 10) H 04/12/18 21:21 Consult Discharge Plan - Plan Referrals: NONE,PCP [Primary Care Provider] -
--- NOTE | 2018-04-13 16:29 | Event Note ---
Date of Encounter: 04/13/18 Time of Encounter: 16:26 Patient was seen earlier in the morning by the hospitalist. Presently patient is sleeping and she is arousable. She is alert and appropriate at times during our conversation she is tearful however she does deny any suicidal or homicidal ideations. Denies any audio or visual hallucinations. No signs or symptoms of seizure activity. Patient does admit to previous seizures during withdrawal states last seizure was about 3 months ago. Patient has been seen by psychiatry and was initiated on Latuda. We will continue with [facility] for alcohol withdrawal and monitor for seizure activity as well as neuro checks every 4 hours.
[2018-04-13] MEDS: Lurasidone 20 MG TABLET PO SCH (17:15)
[2018-04-14] MEDS: *HR* LORazepam 2 MG/ML VIAL IVP PRN ×7 (03:44→22:47)
[2018-04-14] MEDS: *HR* Heparin 5,000 UNIT/ML VIAL SQ SCH ×2 (06:03→16:58)
[2018-04-14 07:15] LABS: Basophils # 0.1 K/mcL (0.0-0.2); Basophils % 1.3 %; Eosinophils # 0.3 K/mcL (0.0-0.6); Eosinophils % 5.7 %; Hematocrit 42.7 % (35.3-44.9); Immature Granulocytes % 0.3 % (0-4); Lymphocytes # 1.4 K/mcL (0.6-4.6); Lymphocytes % 24.2 %; Mean Corpuscular HGB Conc 35.1 g/dL (31.6-35.5); Mean Corpuscular Hemoglobin 33.7 pg (28.0-33.3); Mean Platelet Volume 10.1 fL (9.4-12.4); Monocytes # 0.4 K/mcL (0.0-1.3); Monocytes % 7.4 %; Neutrophils # 3.6 K/mcL (1.6-8.9); Platelet Count 219 K/mcL (140-400); Red Blood Count 4.45 M/mcL (3.82-4.97); Red Cell Distribution Width 12.5 % (11.5-14.5); Segmented Neutrophils % 61.1 %
[2018-04-14 07:39] LABS: BUN/Creatinine Ratio 24 (6-26); Blood Urea Nitrogen 10 mg/dL (6-20); Calcium 9.1 mg/dL (8.6-10.3); Carbon Dioxide 19 mEq/L (23-29); Chloride 107 mEq/L (98-107); Glucose 91 mg/dL (70-105); Osmolality,Calculated 279 (280-300); Potassium 4.1 mEq/L (3.5-5.1); Sodium 135 mEq/L (136-145); eGFR For African Americans > 60 (> 60); eGFR For Non-African Americans > 60 (> 60)
[2018-04-14] MEDS: Nicotine 21 MG PATCH.TD24 TD SCH (09:07)
[2018-04-14] MEDS: Lurasidone 20 MG TABLET PO SCH (09:07)
[2018-04-14] MEDS: Vitamin B Complex/Vit C/Vit E 1 EACH TABLET PO SCH (09:07)
[2018-04-14] MEDS: Folic Acid 1 MG TABLET PO SCH (09:07)
[2018-04-14] MEDS: Thiamine (B-1) 100 MG TABLET PO SCH (09:07)
[2018-04-14] MEDS ORDERED: Ondansetron ODT 4 MG TAB.RAPDIS SL ONE (10:33)
[2018-04-14] MEDS: Acetaminophen 325 MG TABLET PO PRN ×2 (14:16→21:01)
--- NOTE | 2018-04-14 15:08 | Internal Med Progress Note ---
Date of Encounter: 04/14/18 Time of Encounter: 15:07 - Assessment and plan (1) Suicidal ideation Current Visit: Yes Status: Acute Assessment and plan: reportedly was expressing SI in ED> Evaluated by Psych who did feel patient was a danger to herself or others. Patient denied SI on 04/14 exam. Continue to per psych recommendations (2) Alcoholic intoxication Current Visit: Yes Status: Acute Assessment and plan: Known history of alcohol abuse. Has had multiple admissions for alcohol withdrawal/detox. Last drink 2 days prior to arrival. BAL 26. Cont to monitor with CIWA. Thamine, folate Qualifiers: Complication of substance-induced condition: uncomplicated Qualified Code(s ): F10.920 - Alcohol use, unspecified with intoxication, uncomplicated (3) DVT prophylaxis Current Visit: No Status: Acute Assessment and plan: Heparin - Time Spent With Patient Total time spent is greater than 50% in coordination of care (as documented) at patient's floor/unit and/or counseling patient: - Subjective Interval history: Seen and - Constitutional Vitals: Temp Pulse Resp BP Pulse Ox 98.7 F 87 16 129/87 94 04/14/18 11:33 04/14/18 11:33 04/14/18 11:33 04/14/18 11:33 04/14/18 11:33 General appearance: Present: disheveled, A&O X 3, no acute distress Internal Medicine: Result - Labs CBC & Chem 7: 04/14/18 06:25 04/14/18 06:25 Labs: Short CBC 04/14/18 Range/Units 06:25 WBC 5.9 (4.3-11.1) K/mcL Hgb 15.0 (11.5-15.4) g/dL Hct 42.7 (35.3-44.9) % Plt Count 219 (140-400) K/mcL Neutrophils # 3.6 (1.6-8.9) K/mcL BMP 04/14/18 06:25 Sodium 135 L Potassium 4.1 Chloride 107 Carbon Dioxide 19 L BUN 10 Creatinine 0.42 L Glucose 91 Calcium 9.1 Consult Discharge Plan - Plan Referrals: NONE,PCP [Primary Care Provider] -
[2018-04-15] MEDS: *HR* LORazepam 2 MG/ML VIAL IVP PRN ×2 (00:16→05:55)
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
[2018-04-15] MEDS: *HR* Heparin 5,000 UNIT/ML VIAL SQ SCH (05:55)
[2018-04-15] MEDS: Acetaminophen 325 MG TABLET PO PRN (08:07)
[2018-04-15] MEDS: Lurasidone 20 MG TABLET PO SCH (08:07)
[2018-04-15] MEDS: Nicotine 21 MG PATCH.TD24 TD SCH (08:07)
[2018-04-15] MEDS: Folic Acid 1 MG TABLET PO SCH (08:07)
[2018-04-15] MEDS: Vitamin B Complex/Vit C/Vit E 1 EACH TABLET PO SCH (08:07)
[2018-04-15] MEDS: Thiamine (B-1) 100 MG TABLET PO SCH (08:07)
--- NOTE | 2018-04-15 10:57 | Discharge Summary ---
Date of Encounter: 04/15/18 Time of Encounter: 10:57 - Discharge Diagnosis (1) Suicidal ideation Priority: Primary Status: Acute Assessment and Plan: reportedly was expressing SI in ED. Evaluated by Psych who did feel patient was a danger to herself or others. Patient denied SI on exam. Low to do was recommended per psychiatry for depression however patient stated this gave her anxiety and she did not want to take it. Advised to follow up outpatient with PCP and/or psychiatrist. (2) Alcoholic intoxication Priority: Primary Status: Acute Assessment and Plan: Known history of alcohol abuse. Has had multiple admissions for alcohol withdrawal/detox. Last drink 2 days prior to arrival. BAL 26. She was monitored with [facility] protocol and received daily thiamine and folic acid. On day of discharge patient expressed desire to go home as she did not want to quit drinking at this time. Strongly encouraged cessation and to stay inpatient for further detox however patient refused. Qualifiers: Complication of substance-induced condition: uncomplicated Qualified Code(s ): F10.920 - Alcohol use, unspecified with intoxication, uncomplicated Hospital course: See assessment and plan for Hospital course Discharge discussed with: patient (Seen and examined at bedside. Says she is anxious and she thinks is from the low to do. She does not want to continue to take it. She also feels that she is in mild withdrawal and says she wants to go home; says she does not wish to quit drinking at this time. Had a long discussion with her regarding drinking cessation and patient states she is not ready to at this time and she would rather just go home and drink versus stay in the hospital. Denied any thoughts of harming self or wanting to kill self or when in a home others. Advised to follow-up with PCP and/or outpatient psychiatrist within 7 days) - Time Spent with Patient Total time spent providing and/or coordinating discharge services: - Discharge Medications Home Medications: Multivitamin [One Daily Multivitamin] 1 tab PO DAILY 04/13/18 [History] Allergies/Adverse Reactions: 3 Allergy/AdvReac Type Severity Reaction Status Date / Time ibuprofen [From Motrin] Allergy Swelling Verified 04/13/18 11:08 of Lip/Tongue/Throat Date of admission: 04/13/18 01:36 Primary care physician: PCP NONE Consults: 04/13/18 03:50 Consult to Psychiatry [CONS] Routine Consulting Provider: Psychiatry Ro Reason for Consult: suicidal ideations Call Completed: No 04/14/18 14:50 Consult to Invasive Line Access Team [CONS] Routine Reason for Consult: limited vascular access Line Type: EPIV Discharging clinician: Marni Morelos Anticipated date of discharge: 04/15/18 - Constitutional Vitals: Temp Pulse Resp BP Pulse Ox 97.8 F 77 16 124/84 94 04/15/18 07:20 04/15/18 07:20 04/15/18 07:20 04/15/18 07:20 04/15/18 07:20 General appearance: Present: disheveled, A&O X 3, no acute distress - Head Head exam: Present: atraumatic, normocephalic - Eye Eye exam: Present: PERRL, conjuntiva pink, sclera anicteric Pupils: Present: PERRL - Neck Neck exam general surgery: Present: supple, trachea midline. Absent: lymphadenopathy - Respiratory Respiratory exam: Present: CTAB. Absent: accessory muscle use, rales, rhonchi, wheezes - Cardiovascular Cardiovascular exam: Present: RRR, +S1, +S2. Absent: diastolic murmur, gallop, rubs, systolic murmur - GI/Abdominal GI/Abdominal exam: Present: normal bowel sounds, soft, no peritoneal signs. Absent: distended, tenderness - Extremities Exam Extremities exam: Present: warm, radial pulses palpable and symmetrical. Absent : calf tenderness, cyanotic, pedal edema - Neurological Exam Neurological exam: Present: CN II-XII intact, oriented X3, no focal deficits. Absent: pronater drift, facial droop, speech deficit - Skin Skin exam: Present: dry, intact - Patient Status Disposition: Home, Self-Care Condition: Good Functional capacity at discharge: independent ambulation Overall status at discharge: patient is not back to baseline - Discharge Instructions Instructions: Abuse of Alcohol (DC), Alcohol Withdrawal (DC) Follow Up With: NONE,PCP [Primary Care Provider] - (Please call [phone] to establish care with a primary care physician if he did already have one. She already have a primary care physician please call for follow-up appointment within 7 days) - Diet and Activity Activity: increase activity as tolerated Diet: advance to your usual diet
[2018-04-15 11:04] VITALS: BP 138/98
== END 2018-04-15 11:30 | disposition home or self-care (01) ==
LOC: EMEROO 17:25 → 3BNU 17:25
PROVIDERS: ADMIT Pediatrics; ATTEND Pediatrics

== ENCOUNTER 2018-05-13 14:51 | Inpatient (IN) ==
[2018-05-13] MEDS ORDERED: 0.9 % Sodium Chloride 1,000 ML IVC ONE (15:33)
--- NOTE | 2018-05-13 15:38 | Emergency Department Note ---
Disposition Clinical Impression: Alcohol abuse EtOH dependence Qualifiers: Substance use status: with intoxication Complication of substance-induced condition: uncomplicated Qualified Code(s): F10.220 - Alcohol dependence with intoxication, uncomplicated Depression Qualifiers: Depression Type: unspecified Qualified Code(s): F32.9 - Major depressive disorder, single episode, unspecified Disposition: Still a Patient Condition: Good Referrals: NONE,PCP [Primary Care Provider] - Forms: ED Satisfaction Letter General Adult HPI - General Chief complaint: ED Psychiatric Symptoms Stated complaint: depression Time Seen by Provider: 05/13/18 15:21 Nursing Notes Reviewed: Yes Vital Signs Reviewed: Yes - History of Present Illness HPI Narrative: Female patient presenting to emergency department complaining of being depressed. States she cannot take care of herself. Is concerned that she is going through withdrawal since she only had 3 shots of vodka today is that of her normal liter. Some mild sternal chest pain. Cannot further describe this. No shortness of breath. No vomiting no abdominal pain. Pain Scale: 4 - Related Data Home Medications Medication Instructions Recorded Confirmed Multivitamin [One Daily 1 tab PO DAILY 04/13/18 04/13/18 Multivitamin] Allergies Allergy/AdvReac Type Severity Reaction Status Date / Time ibuprofen [From Motrin] Allergy Swelling Verified 04/13/18 11:08 of Lip/Tongue/Throat All systems ED: reviewed and negative except as stated. Constitutional: Denies: fever ENT ED: Denies: congestion Cardiovascular: Reports: chest pain. Denies: syncope Respiratory: Denies: cough Gastrointestinal: Denies: abdominal pain, nausea, vomiting, diarrhea Genitourinary: Denies: urgency, dysuria Neurological: Reports: weakness Psychiatric: Reports: depression Past Medical History - Past Medical History Attestation: Yes The following information was validated with the patient. Source: patient Medical history: Reports: asthma, hyperlipidemia, hypertension Surgical history: Reports: other Psychiatric history: Reports: bipolar ANALOG DEVICE DESIGNER history: Reports: no ANALOG DEVICE DESIGNER history, bilateral tubal ligation - Social History Smoking Status: Current every day smoker Smokeless Tobacco Status: No Alcohol use: Reports: recent Drug use: Reports: marijuana, prescription drug abuse Physical Exam - General Limitations: other (Appears intoxicated. Slurred speech.) General appearance: alert, in no apparent distress - Head Head exam: atraumatic, normocephalic, normal inspection - Eye Eye exam: Present: normal appearance, PERRL, EOMI - ENT ENT exam: normal exam, normal oropharynx, mucous membranes moist - Neck Neck exam: Present: normal inspection, full ROM, trachea midline - Chest Chest inspection: Present: normal inspection, symmetric chest wall rise - Respiratory Respiratory exam: Present: normal lung sounds bilaterally - Cardiovascular Cardiovascular exam: Present: regular rate, normal rhythm, normal heart sounds - Abdominal Exam Abdominal exam: Present: soft, Non-Tender. Absent: tenderness, distention, guarding, rebound, rigidity, organomegaly - Extremities Exam Extremities exam: Present: normal inspection, full ROM, normal capillary refill. Absent: tenderness, pedal edema - Back Exam Back exam: Present: normal inspection, full ROM. Absent: tenderness - Neurological Exam Neurological exam: Present: alert, other (Appears Intoxicated) - Psychiatric Psychiatric exam: Present: depressed - Skin Skin exam: Present: warm, dry, intact, normal color Course Course Narrative: Female patient presenting to emergency department complaining of being upset. She states that she is afraid she is going through withdrawals at this time. She generally drinks 1 L of vodka today and has only had 3 shots today. Complaining of a chest pain in the center of her chest. Patient is slurring her words. She appears heavily intoxicated. Lung sounds are clear heart tones are normal. Abdomen is soft and nontender. No signs of edema. We will do a cardiac workup on patient and have her talk with our psychiatric team. She denies any suicidal ideation or homicidal ideation. She states that she is not on any type of medication for depression however she does have a "counselor." Of note patient is allergic to aspirin she states that this is been withheld. - Reevaluation(s) Reevaluation #1: Patient's troponins are negative. EKG is normal. Patient is clinically intoxicated as well as has an elevated alcohol level. We are waiting for this to come down for 1 evaluation. She is currently not able to take care of herself and is pink slipped. Vital Signs Temperature 98.5 F 05/13/18 14:54 Pulse Rate 102 05/13/18 14:54 Respiratory Rate 14 05/13/18 14:54 Blood Pressure 139/100 05/13/18 14:54 O2 Sat by Pulse Oximetry 94 05/13/18 14:54 Temperature 98.5 F 05/13/18 14:54 Pulse Rate 102 05/13/18 14:54 Respiratory Rate 14 05/13/18 14:54 Blood Pressure 139/100 05/13/18 14:54 O2 Sat by Pulse Oximetry 94 05/13/18 14:54 Oxygen Delivery Oxygen Delivery Room Air Medical Decision Making - Medical Records Medical records reviewed: Yes I reviewed the patient's medical records. - Lab Data Lab results reviewed: Yes I reviewed the patient's lab results. Result diagrams: 05/13/18 15:46 05/13/18 15:46 Lab Results 05/13/18 05/13/18 05/13/18 Range/Units 15:40 15:40 15:46 WBC 9.1 (4.3-11.1) K/mcL RBC 5.16 H (3.82-4.97) M/mcL Hgb 16.9 H (11.5-15.4) g/dL Hct 49.2 H (35.3-44.9) % MCV 95.3 (83.0-100.0) fL MCH 32.8 (28.0-33.3) pg MCHC 34.3 (31.6-35.5) g/dL RDW 12.4 (11.5-14.5) % Plt Count 290 (140-400) K/mcL MPV 9.6 (9.4-12.4) fL Immature Gran % 0.2 (0-4) % Seg Neutrophils % 47.5 % Lymphocytes % 45.1 % Monocytes % 5.0 % Eosinophils % 1.3 % Basophils % 0.9 % Neutrophils # 4.3 (1.6-8.9) K/mcL Lymphocytes # 4.1 (0.6-4.6) K/mcL Monocytes # 0.5 (0.0-1.3) K/mcL Eosinophils # 0.1 (0.0-0.6) K/mcL Basophils # 0.1 (0.0-0.2) K/mcL Sodium (136-145) mEq/L Potassium (3.5-5.1) mEq/L Chloride (98-107) mEq/L Carbon Dioxide (23-29) mEq/L BUN (6-20) mg/dL Creatinine (0.60-1.20) mg/dL Est GFR ( Amer) (> 60) Est GFR (Non-Af Amer) (> 60) BUN/Creatinine Ratio (6-26) Glucose (70-105) mg/dL Calculated Osmolality (280-300) Calcium (8.6-10.3) mg/dL Troponin I (< 0.04) ng/mL Urine Color Yellow (Yellow) Urine Clarity Cloudy A (Clear) Urine pH 6.5 (5.0-8.0) pH Units Ur Specific [place] 1.010 (1.010-1.025) Urine Protein Negative (Neg-Trace) mg/dL Urine Glucose (UA) Normal (Normal) mg/dL Urine Ketones Negative (Negative) mg/dL Urine Blood Negative (Negative) Urine Nitrite Negative (Negative) Urine Bilirubin Negative (Negative) Urine Urobilinogen Normal (Normal) mg/dL Ur Leukocyte Esterase Moderate H (Negative) Urine Microscopic RBC 0-3 (0-3) per hpf Urine Microscopic WBC 15-30 H (0-3) per hpf Ur Squamous Epith Cells Many H (None-Few) per lpf Urine Bacteria Few (None-Few) per hpf Hyaline Casts None Seen (None-Few) per lpf Salicylates (15.0-30.0) mg/dL Urine Opiates Screen Negative (Iefwjd=306) ng/mL Acetaminophen (10-20) mcg/mL Ur Barbiturates Screen Negative (Wpbowu=680) ng/mL Ur Phencyclidine Scrn Negative (Cutoff=25) ng/mL Ur Amphetamines Screen Negative (Uroiqo=9661) ng/mL U Benzodiazepines Scrn Negative (Fdwoue=010) ng/mL Urine Cocaine Screen Negative (Cutoff= 300) ng/mL U Marijuana (THC) Screen Positive H (Cutoff = 50) ng/mL Ethyl Alcohol (Less than 10) mg/dL 05/13/18 05/13/18 05/13/18 Range/Units 15:46 15:46 19:43 WBC (4.3-11.1) K/mcL RBC (3.82-4.97) M/mcL Hgb (11.5-15.4) g/dL Hct (35.3-44.9) % MCV (83.0-100.0) fL MCH (28.0-33.3) pg MCHC (31.6-35.5) g/dL RDW (11.5-14.5) % Plt Count (140-400) K/mcL MPV (9.4-12.4) fL Immature Gran % (0-4) % Seg Neutrophils % % Lymphocytes % % Monocytes % % Eosinophils % % Basophils % % Neutrophils # (1.6-8.9) K/mcL Lymphocytes # (0.6-4.6) K/mcL Monocytes # (0.0-1.3) K/mcL Eosinophils # (0.0-0.6) K/mcL Basophils # (0.0-0.2) K/mcL Sodium 143 (136-145) mEq/L Potassium 3.9 (3.5-5.1) mEq/L Chloride 111 H (98-107) mEq/L Carbon Dioxide 20 L (23-29) mEq/L BUN 15 (6-20) mg/dL Creatinine 0.60 (0.60-1.20) mg/dL Est GFR ( Amer) > 60 (> 60) Est GFR (Non-Af Amer) > 60 (> 60) BUN/Creatinine Ratio 25 (6-26) Glucose 93 (70-105) mg/dL Calculated Osmolality 297 (280-300) Calcium 9.2 (8.6-10.3) mg/dL Troponin I < 0.03 < 0.03 (< 0.04) ng/mL Urine Color (Yellow) Urine Clarity (Clear) Urine pH (5.0-8.0) pH Units Ur Specific [place] (1.010-1.025) Urine Protein (Neg-Trace) mg/dL Urine Glucose (UA) (Normal) mg/dL Urine Ketones (Negative) mg/dL Urine Blood (Negative) Urine Nitrite (Negative) Urine Bilirubin (Negative) Urine Urobilinogen (Normal) mg/dL Ur Leukocyte Esterase (Negative) Urine Microscopic RBC (0-3) per hpf Urine Microscopic WBC (0-3) per hpf Ur Squamous Epith Cells (None-Few) per lpf Urine Bacteria (None-Few) per hpf Hyaline Casts (None-Few) per lpf Salicylates < 2.5 L (15.0-30.0) mg/dL Urine Opiates Screen (Ocgqkc=656) ng/mL Acetaminophen < 10 L (10-20) mcg/mL Ur Barbiturates Screen (Aabvok=001) ng/mL Ur Phencyclidine Scrn (Cutoff=25) ng/mL Ur Amphetamines Screen (Plcjcm=1145) ng/mL U Benzodiazepines Scrn (Xhsfoo=011) ng/mL Urine Cocaine Screen (Cutoff= 300) ng/mL U Marijuana (THC) Screen (Cutoff = 50) ng/mL Ethyl Alcohol 370 H (Less than 10) mg/dL - Radiology Data Radiology results reviewed: Yes I reviewed the patient's radiology results. Chest X-Ray 05/13/18 15:35 IMPRESSION: No acute cardiopulmonary disease. D/ / Rahul Davey MD / Rahul Davey MD Interpreting Provider: Rahul Davey MD - EKG Data EKG #1 EKG attestation: Yes I reviewed and interpreted this EKG. EKG results narrative: Normal sinus rhythm at a rate of 93. NV interval is 165. QRS duration is 85. QT is 375. QTC is 425. No signs of acute ischemia. No previous to compare to. S.B.A.R. - S.B.A.R. S.B.A.R. Report Given to: Dr Pili BlackAJohnathan Repor Time: 20:51
[2018-05-13 16:00] LABS: Bilirubin,Urine Negative (Negative); Blood,Urine Negative (Negative); Clarity,Urine Cloudy (Clear); Color,Urine Yellow (Yellow); Glucose,Urine (UA) Normal (Normal); Ketones,Urine Negative (Negative); Leukocyte Esterase,Urine Moderate (Negative); Nitrite,Urine Negative (Negative); PH,Urine 6.5 pH Units (5.0-8.0); Protein,Urine Negative (Neg-Trace); Urobilinogen,Urine Normal (Normal)
[2018-05-13 16:02] LABS: Bacteria,Urine Few per hpf (None-Few); Hyaline Casts,Urine None Seen per lpf (None-Few); RBC,Urine 0-3 per hpf (0-3); Squamous Epithelial Cell,Urine Many per lpf (None-Few); WBC,Urine 15-30 per hpf (0-3)
[2018-05-13 16:11] LABS: Amphetamine Screen,Urine Negative ng/mL (Cutoff=1000); Barbiturate Screen,Urine Negative ng/mL (Cutoff=200); Benzodiazepines Screen,Urine Negative ng/mL (Cutoff=200); Cannabinoid Screen,Urine Positive ng/mL (Cutoff = 50); Cocaine Screen,Urine Negative ng/mL (Cutoff= 300); Opiate Screen,Urine Negative ng/mL (Cutoff=300); Phencyclidine Screen,Urine Negative ng/mL (Cutoff=25)
[2018-05-13 16:22] LABS: Basophils # 0.1 K/mcL (0.0-0.2); Basophils % 0.9 %; Eosinophils # 0.1 K/mcL (0.0-0.6); Eosinophils % 1.3 %; Hematocrit 49.2 % (35.3-44.9); Hemoglobin 16.9 g/dL (11.5-15.4); Immature Granulocytes % 0.2 % (0-4); Lymphocytes # 4.1 K/mcL (0.6-4.6); Lymphocytes % 45.1 %; Mean Corpuscular HGB Conc 34.3 g/dL (31.6-35.5); Mean Corpuscular Hemoglobin 32.8 pg (28.0-33.3); Mean Corpuscular Volume 95.3 fL (83.0-100.0); Mean Platelet Volume 9.6 fL (9.4-12.4); Monocytes # 0.5 K/mcL (0.0-1.3); Neutrophils # 4.3 K/mcL (1.6-8.9); Platelet Count 290 K/mcL (140-400); Red Blood Count 5.16 M/mcL (3.82-4.97); Red Cell Distribution Width 12.4 % (11.5-14.5); Segmented Neutrophils % 47.5 %
--- NOTE | 2018-05-13 16:33 | Emergency Department Note ---
Disposition Clinical Impression: Alcohol abuse EtOH dependence Qualifiers: Substance use status: with intoxication Complication of substance-induced condition: uncomplicated Qualified Code(s): F10.220 - Alcohol dependence with intoxication, uncomplicated Depression Qualifiers: Depression Type: unspecified Qualified Code(s): F32.9 - Major depressive disorder, single episode, unspecified Disposition: Admitted As Inpatient Condition: Fair General Adult HPI - General Chief complaint: ED Psychiatric Symptoms Stated complaint: depression Time Seen by Provider: 05/13/18 15:21 - History of Present Illness Pain Scale: 4 - Related Data Home Medications Medication Instructions Recorded Confirmed Multivitamin [One Daily 1 tab PO DAILY 04/13/18 05/13/18 Multivitamin] Allergies Allergy/AdvReac Type Severity Reaction Status Date / Time ibuprofen [From Motrin] Allergy Swelling Verified 05/13/18 22:18 of Lip/Tongue/Throat Past Medical History - Past Medical History Medical history: Reports: asthma, hyperlipidemia, hypertension Surgical history: Reports: other Psychiatric history: Reports: bipolar CHILDCARE AIDE history: Reports: no CHILDCARE AIDE history, bilateral tubal ligation - Social History Smoking Status: Current every day smoker Smokeless Tobacco Status: No Alcohol use: Reports: recent Drug use: Reports: marijuana, prescription drug abuse Course Vital Signs Temperature 98.5 F 05/13/18 14:54 Pulse Rate 102 05/13/18 14:54 Respiratory Rate 14 05/13/18 14:54 Blood Pressure 139/100 05/13/18 14:54 O2 Sat by Pulse Oximetry 94 05/13/18 14:54 Temperature 97.7 F 05/18/18 18:35 Pulse Rate 86 05/18/18 18:35 Respiratory Rate 20 05/18/18 18:35 Blood Pressure 101/71 05/18/18 18:35 O2 Sat by Pulse Oximetry 97 05/18/18 18:35 Oxygen Delivery Oxygen Delivery Room Air Medical Decision Making - Lab Data Result diagrams: 05/18/18 05:49 05/18/18 05:49 Lab Results 05/13/18 05/13/18 05/13/18 Range/Units 15:40 15:40 15:46 WBC 9.1 (4.3-11.1) K/mcL RBC 5.16 H (3.82-4.97) M/mcL Hgb 16.9 H (11.5-15.4) g/dL Hct 49.2 H (35.3-44.9) % MCV 95.3 (83.0-100.0) fL MCH 32.8 (28.0-33.3) pg MCHC 34.3 (31.6-35.5) g/dL RDW 12.4 (11.5-14.5) % Plt Count 290 (140-400) K/mcL MPV 9.6 (9.4-12.4) fL Immature Gran % 0.2 (0-4) % Seg Neutrophils % 47.5 % Lymphocytes % 45.1 % Monocytes % 5.0 % Eosinophils % 1.3 % Basophils % 0.9 % Neutrophils # 4.3 (1.6-8.9) K/mcL Lymphocytes # 4.1 (0.6-4.6) K/mcL Monocytes # 0.5 (0.0-1.3) K/mcL Eosinophils # 0.1 (0.0-0.6) K/mcL Basophils # 0.1 (0.0-0.2) K/mcL Sodium (136-145) mEq/L Potassium (3.5-5.1) mEq/L Chloride (98-107) mEq/L Carbon Dioxide (23-29) mEq/L BUN (6-20) mg/dL Creatinine (0.60-1.20) mg/dL Est GFR ( Amer) (> 60) Est GFR (Non-Af Amer) (> 60) BUN/Creatinine Ratio (6-26) Glucose (70-105) mg/dL Calculated Osmolality (280-300) Calcium (8.6-10.3) mg/dL Magnesium (1.6-2.6) mg/dL Troponin I (< 0.04) ng/mL TSH (0.340-5.600) mcIU/mL Urine Color Yellow (Yellow) Urine Clarity Cloudy A (Clear) Urine pH 6.5 (5.0-8.0) pH Units Ur Specific [place] 1.010 (1.010-1.025) Urine Protein Negative (Neg-Trace) mg/dL Urine Glucose (UA) Normal (Normal) mg/dL Urine Ketones Negative (Negative) mg/dL Urine Blood Negative (Negative) Urine Nitrite Negative (Negative) Urine Bilirubin Negative (Negative) Urine Urobilinogen Normal (Normal) mg/dL Ur Leukocyte Esterase Moderate H (Negative) Urine Microscopic RBC 0-3 (0-3) per hpf Urine Microscopic WBC 15-30 H (0-3) per hpf Ur Squamous Epith Cells Many H (None-Few) per lpf Urine Bacteria Few (None-Few) per hpf Hyaline Casts None Seen (None-Few) per lpf Salicylates (15.0-30.0) mg/dL Urine Opiates Screen Negative (Xbqzfe=852) ng/mL Acetaminophen (10-20) mcg/mL Ur Barbiturates Screen Negative (Hgdqoh=415) ng/mL Ur Phencyclidine Scrn Negative (Cutoff=25) ng/mL Ur Amphetamines Screen Negative (Pagbem=9665) ng/mL U Benzodiazepines Scrn Negative (Lizlgk=094) ng/mL Urine Cocaine Screen Negative (Cutoff= 300) ng/mL U Marijuana (THC) Screen Positive H (Cutoff = 50) ng/mL Ethyl Alcohol (Less than 10) mg/dL 05/13/18 05/13/18 05/13/18 Range/Units 15:46 15:46 19:43 WBC (4.3-11.1) K/mcL RBC (3.82-4.97) M/mcL Hgb (11.5-15.4) g/dL Hct (35.3-44.9) % MCV (83.0-100.0) fL MCH (28.0-33.3) pg MCHC (31.6-35.5) g/dL RDW (11.5-14.5) % Plt Count (140-400) K/mcL MPV (9.4-12.4) fL Immature Gran % (0-4) % Seg Neutrophils % % Lymphocytes % % Monocytes % % Eosinophils % % Basophils % % Neutrophils # (1.6-8.9) K/mcL Lymphocytes # (0.6-4.6) K/mcL Monocytes # (0.0-1.3) K/mcL Eosinophils # (0.0-0.6) K/mcL Basophils # (0.0-0.2) K/mcL Sodium 143 (136-145) mEq/L Potassium 3.9 (3.5-5.1) mEq/L Chloride 111 H (98-107) mEq/L Carbon Dioxide 20 L (23-29) mEq/L BUN 15 (6-20) mg/dL Creatinine 0.60 (0.60-1.20) mg/dL Est GFR ( Amer) > 60 (> 60) Est GFR (Non-Af Amer) > 60 (> 60) BUN/Creatinine Ratio 25 (6-26) Glucose 93 (70-105) mg/dL Calculated Osmolality 297 (280-300) Calcium 9.2 (8.6-10.3) mg/dL Magnesium (1.6-2.6) mg/dL Troponin I < 0.03 < 0.03 (< 0.04) ng/mL TSH (0.340-5.600) mcIU/mL Urine Color (Yellow) Urine Clarity (Clear) Urine pH (5.0-8.0) pH Units Ur Specific [place] (1.010-1.025) Urine Protein (Neg-Trace) mg/dL Urine Glucose (UA) (Normal) mg/dL Urine Ketones (Negative) mg/dL Urine Blood (Negative) Urine Nitrite (Negative) Urine Bilirubin (Negative) Urine Urobilinogen (Normal) mg/dL Ur Leukocyte Esterase (Negative) Urine Microscopic RBC (0-3) per hpf Urine Microscopic WBC (0-3) per hpf Ur Squamous Epith Cells (None-Few) per lpf Urine Bacteria (None-Few) per hpf Hyaline Casts (None-Few) per lpf Salicylates < 2.5 L (15.0-30.0) mg/dL Urine Opiates Screen (Oghpnc=200) ng/mL Acetaminophen < 10 L (10-20) mcg/mL Ur Barbiturates Screen (Ujnpom=937) ng/mL Ur Phencyclidine Scrn (Cutoff=25) ng/mL Ur Amphetamines Screen (Reemaf=7563) ng/mL U Benzodiazepines Scrn (Bjcchs=763) ng/mL Urine Cocaine Screen (Cutoff= 300) ng/mL U Marijuana (THC) Screen (Cutoff = 50) ng/mL Ethyl Alcohol 370 H (Less than 10) mg/dL 05/14/18 05/14/18 Range/Units 07:01 07:01 WBC 5.0 (4.3-11.1) K/mcL RBC 4.70 (3.82-4.97) M/mcL Hgb 15.1 D (11.5-15.4) g/dL Hct 43.9 (35.3-44.9) % MCV 93.4 (83.0-100.0) fL MCH 32.1 (28.0-33.3) pg MCHC 34.4 (31.6-35.5) g/dL RDW 12.3 (11.5-14.5) % Plt Count 227 (140-400) K/mcL MPV 9.4 (9.4-12.4) fL Immature Gran % 0.2 (0-4) % Seg Neutrophils % 44.7 % Lymphocytes % 41.2 % Monocytes % 8.1 % Eosinophils % 4.6 % Basophils % 1.2 % Neutrophils # 2.2 (1.6-8.9) K/mcL Lymphocytes # 2.0 (0.6-4.6) K/mcL Monocytes # 0.4 (0.0-1.3) K/mcL Eosinophils # 0.2 (0.0-0.6) K/mcL Basophils # 0.1 (0.0-0.2) K/mcL Sodium 141 (136-145) mEq/L Potassium 3.9 (3.5-5.1) mEq/L Chloride 109 H (98-107) mEq/L Carbon Dioxide 20 L (23-29) mEq/L BUN 16 (6-20) mg/dL Creatinine 0.56 L (0.60-1.20) mg/dL Est GFR ( Amer) > 60 (> 60) Est GFR (Non-Af Amer) > 60 (> 60) BUN/Creatinine Ratio 29 H (6-26) Glucose 86 (70-105) mg/dL Calculated Osmolality 292 (280-300) Calcium 9.0 (8.6-10.3) mg/dL Magnesium 2.0 (1.6-2.6) mg/dL Troponin I (< 0.04) ng/mL TSH 1.564 (0.340-5.600) mcIU/mL Urine Color (Yellow) Urine Clarity (Clear) Urine pH (5.0-8.0) pH Units Ur Specific [place] (1.010-1.025) Urine Protein (Neg-Trace) mg/dL Urine Glucose (UA) (Normal) mg/dL Urine Ketones (Negative) mg/dL Urine Blood (Negative) Urine Nitrite (Negative) Urine Bilirubin (Negative) Urine Urobilinogen (Normal) mg/dL Ur Leukocyte Esterase (Negative) Urine Microscopic RBC (0-3) per hpf Urine Microscopic WBC (0-3) per hpf Ur Squamous Epith Cells (None-Few) per lpf Urine Bacteria (None-Few) per hpf Hyaline Casts (None-Few) per lpf Salicylates (15.0-30.0) mg/dL Urine Opiates Screen (Eawmls=767) ng/mL Acetaminophen (10-20) mcg/mL Ur Barbiturates Screen (Qlnflx=690) ng/mL Ur Phencyclidine Scrn (Cutoff=25) ng/mL Ur Amphetamines Screen (Oxvrej=9500) ng/mL U Benzodiazepines Scrn (Vnfoyg=015) ng/mL Urine Cocaine Screen (Cutoff= 300) ng/mL U Marijuana (THC) Screen (Cutoff = 50) ng/mL Ethyl Alcohol (Less than 10) mg/dL Attestation Statement - Attestation Attestation: I examined this patient and my medical decision-making was reviewed with the Resident Physician. I agree with the documented findings, disposition and treatment plan as described except to the extent set forth below. Obvious clinical intoxication. Will require evaluation, seems as though she is having trouble caring for herself.
[2018-05-13 16:40] LABS: Acetaminophen < 10 mcg/mL (10-20); BUN/Creatinine Ratio 25 (6-26); Blood Urea Nitrogen 15 mg/dL (6-20); Calcium 9.2 mg/dL (8.6-10.3); Carbon Dioxide 20 mEq/L (23-29); Chloride 111 mEq/L (98-107); Ethanol 370 mg/dL (Less than 10); Glucose 93 mg/dL (70-105); Osmolality,Calculated 297 (280-300); Potassium 3.9 mEq/L (3.5-5.1); Salicylate < 2.5 mg/dL (15.0-30.0); Sodium 143 mEq/L (136-145); eGFR For African Americans > 60 (> 60); eGFR For Non-African Americans > 60 (> 60)
[2018-05-13] MEDS: Nicotine 14 MG PATCH.TD24 TD SCH (18:18)
[2018-05-13] MEDS ORDERED: Haloperidol Lactate 5 MG/ML VIAL IM STA (19:34)
--- NOTE | 2018-05-13 22:09 | Emergency Department Note ---
START Narrative - START START: I examined this patient and my medical decision-making was reviewed with the Resident Physician. I agree with the documented findings, disposition and treatment plan as described except to the extent set forth below. Patient was signed out to me by Dr. Robbins. Plan was to recheck an alcohol level in the morning and then have psych see her for possible admission for suicidal thoughts. Hospitalist will admit her to their service due to her severely elevated alcohol level and then we will put in a consult to psych at that time.
--- NOTE | 2018-05-13 22:11 | Emergency Department Note ---
Disposition Clinical Impression: Alcohol abuse EtOH dependence Qualifiers: Substance use status: with intoxication Complication of substance-induced condition: uncomplicated Qualified Code(s): F10.220 - Alcohol dependence with intoxication, uncomplicated Depression Qualifiers: Depression Type: unspecified Qualified Code(s): F32.9 - Major depressive disorder, single episode, unspecified Disposition: Admitted As Inpatient Condition: Fair Referrals: NONE,PCP [Primary Care Provider] - Forms: ED Satisfaction Letter Alcohol HPI - General Chief Complaint: ED Psychiatric Symptoms Stated Complaint: depression Time Seen by Provider: 05/13/18 15:21 Limitations: other (Appears intoxicated. Slurred speech.) - Related Data Home Medications Medication Instructions Recorded Confirmed Multivitamin [One Daily 1 tab PO DAILY 04/13/18 04/13/18 Multivitamin] Allergies Allergy/AdvReac Type Severity Reaction Status Date / Time ibuprofen [From Motrin] Allergy Swelling Verified 04/13/18 11:08 of Lip/Tongue/Throat Constitutional: Denies: fever ENT ED: Denies: congestion Cardiovascular: Reports: chest pain. 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 Slurred speech.) General appearance: alert, in no apparent distress Course Course Narrative: Briefly care was signed out from Dr. Rose and Dr. Robbins patient with depression, alcoholism, alcohol level of 370, given that she would have sustained ER for over 14 more hours after already been here for 7 hours to get a blood alcohol less than ED and that she frequently does not withdrawal symptoms and likely need CIWA protocol, plan will be for admission for sobriety , patient is a pink slip right now because she is a threat for hurting herself did not be able to take care of her self had apparently made some comments about hurting herself and does a psychiatric evaluation after medical clearance. [facility]'s Dr. Naumovski Vital Signs Temperature 98.5 F 05/13/18 14:54 Pulse Rate 102 05/13/18 14:54 Respiratory Rate 14 05/13/18 14:54 Blood Pressure 139/100 05/13/18 14:54 O2 Sat by Pulse Oximetry 94 05/13/18 14:54 Temperature 98.5 F 05/13/18 14:54 Pulse Rate 102 05/13/18 14:54 Respiratory Rate 14 05/13/18 14:54 Blood Pressure 139/100 05/13/18 14:54 O2 Sat by Pulse Oximetry 94 05/13/18 14:54 Oxygen Delivery Oxygen Delivery Room Air Alcohol - Differential Diagnosis Differential Diagnosis: Likely: alcohol withdrawal delirium, hypomagnesemia, acute alcohol intoxication, alcohol ketoacidosis, metabolic abnormality, alcohol withdrawal syndrome - Medical Records Medical records reviewed: Yes I reviewed the patient's medical records. - Lab Data Lab results reviewed: Yes I reviewed the patient's lab results. Result diagrams: 05/13/18 15:46 05/13/18 15:46 Lab Results 05/13/18 05/13/18 05/13/18 Range/Units 15:40 15:40 15:46 WBC 9.1 (4.3-11.1) K/mcL RBC 5.16 H (3.82-4.97) M/mcL Hgb 16.9 H (11.5-15.4) g/dL Hct 49.2 H (35.3-44.9) % MCV 95.3 (83.0-100.0) fL MCH 32.8 (28.0-33.3) pg MCHC 34.3 (31.6-35.5) g/dL RDW 12.4 (11.5-14.5) % Plt Count 290 (140-400) K/mcL MPV 9.6 (9.4-12.4) fL Immature Gran % 0.2 (0-4) % Seg Neutrophils % 47.5 % Lymphocytes % 45.1 % Monocytes % 5.0 % Eosinophils % 1.3 % Basophils % 0.9 % Neutrophils # 4.3 (1.6-8.9) K/mcL Lymphocytes # 4.1 (0.6-4.6) K/mcL Monocytes # 0.5 (0.0-1.3) K/mcL Eosinophils # 0.1 (0.0-0.6) K/mcL Basophils # 0.1 (0.0-0.2) K/mcL Sodium (136-145) mEq/L Potassium (3.5-5.1) mEq/L Chloride (98-107) mEq/L Carbon Dioxide (23-29) mEq/L BUN (6-20) mg/dL Creatinine (0.60-1.20) mg/dL Est GFR ( Amer) (> 60) Est GFR (Non-Af Amer) (> 60) BUN/Creatinine Ratio (6-26) Glucose (70-105) mg/dL Calculated Osmolality (280-300) Calcium (8.6-10.3) mg/dL Troponin I (< 0.04) ng/mL Urine Color Yellow (Yellow) Urine Clarity Cloudy A (Clear) Urine pH 6.5 (5.0-8.0) pH Units Ur Specific [place] 1.010 (1.010-1.025) Urine Protein Negative (Neg-Trace) mg/dL Urine Glucose (UA) Normal (Normal) mg/dL Urine Ketones Negative (Negative) mg/dL Urine Blood Negative (Negative) Urine Nitrite Negative (Negative) Urine Bilirubin Negative (Negative) Urine Urobilinogen Normal (Normal) mg/dL Ur Leukocyte Esterase Moderate H (Negative) Urine Microscopic RBC 0-3 (0-3) per hpf Urine Microscopic WBC 15-30 H (0-3) per hpf Ur Squamous Epith Cells Many H (None-Few) per lpf Urine Bacteria Few (None-Few) per hpf Hyaline Casts None Seen (None-Few) per lpf Salicylates (15.0-30.0) mg/dL Urine Opiates Screen Negative (Pierdx=715) ng/mL Acetaminophen (10-20) mcg/mL Ur Barbiturates Screen Negative (Dayibh=341) ng/mL Ur Phencyclidine Scrn Negative (Cutoff=25) ng/mL Ur Amphetamines Screen Negative (Kgkekt=8541) ng/mL U Benzodiazepines Scrn Negative (Rjnrhg=145) ng/mL Urine Cocaine Screen Negative (Cutoff= 300) ng/mL U Marijuana (THC) Screen Positive H (Cutoff = 50) ng/mL Ethyl Alcohol (Less than 10) mg/dL 05/13/18 05/13/18 05/13/18 Range/Units 15:46 15:46 19:43 WBC (4.3-11.1) K/mcL RBC (3.82-4.97) M/mcL Hgb (11.5-15.4) g/dL Hct (35.3-44.9) % MCV (83.0-100.0) fL MCH (28.0-33.3) pg MCHC (31.6-35.5) g/dL RDW (11.5-14.5) % Plt Count (140-400) K/mcL MPV (9.4-12.4) fL Immature Gran % (0-4) % Seg Neutrophils % % Lymphocytes % % Monocytes % % Eosinophils % % Basophils % % Neutrophils # (1.6-8.9) K/mcL Lymphocytes # (0.6-4.6) K/mcL Monocytes # (0.0-1.3) K/mcL Eosinophils # (0.0-0.6) K/mcL Basophils # (0.0-0.2) K/mcL Sodium 143 (136-145) mEq/L Potassium 3.9 (3.5-5.1) mEq/L Chloride 111 H (98-107) mEq/L Carbon Dioxide 20 L (23-29) mEq/L BUN 15 (6-20) mg/dL Creatinine 0.60 (0.60-1.20) mg/dL Est GFR ( Amer) > 60 (> 60) Est GFR (Non-Af Amer) > 60 (> 60) BUN/Creatinine Ratio 25 (6-26) Glucose 93 (70-105) mg/dL Calculated Osmolality 297 (280-300) Calcium 9.2 (8.6-10.3) mg/dL Troponin I < 0.03 < 0.03 (< 0.04) ng/mL Urine Color (Yellow) Urine Clarity (Clear) Urine pH (5.0-8.0) pH Units Ur Specific [place] (1.010-1.025) Urine Protein (Neg-Trace) mg/dL Urine Glucose (UA) (Normal) mg/dL Urine Ketones (Negative) mg/dL Urine Blood (Negative) Urine Nitrite (Negative) Urine Bilirubin (Negative) Urine Urobilinogen (Normal) mg/dL Ur Leukocyte Esterase (Negative) Urine Microscopic RBC (0-3) per hpf Urine Microscopic WBC (0-3) per hpf Ur Squamous Epith Cells (None-Few) per lpf Urine Bacteria (None-Few) per hpf Hyaline Casts (None-Few) per lpf Salicylates < 2.5 L (15.0-30.0) mg/dL Urine Opiates Screen (Tqifah=582) ng/mL Acetaminophen < 10 L (10-20) mcg/mL Ur Barbiturates Screen (Nrvbpc=591) ng/mL Ur Phencyclidine Scrn (Cutoff=25) ng/mL Ur Amphetamines Screen (Yswnro=4412) ng/mL U Benzodiazepines Scrn (Xaibia=779) ng/mL Urine Cocaine Screen (Cutoff= 300) ng/mL U Marijuana (THC) Screen (Cutoff = 50) ng/mL Ethyl Alcohol 370 H (Less than 10) mg/dL - Radiology Data Radiology results reviewed: Yes I reviewed the patient's radiology results.
[2018-05-13] MEDS ORDERED: *HR* LORazepam 2 MG/ML VIAL IVP PRN ×2 (22:29)
--- NOTE | 2018-05-13 23:09 | Internal Med History&Physical ---
Date of Encounter: 05/14/18 Time of Encounter: 23:07 Internal Medicine - H&P: HPI Chief complaint: Alcohol intoxication Admitted From: Emergency Dept Plans for Post Hospital Care: Home History of present illness: Ms. Sher is a 37 year old female with history of significant alcohol abuse and depression, who presents with alcohol intoxication requesting help for alcoholism. The patient wants to quit drinking but is worried about withdrawals. She stated that she drinks about a liter of vodka a day but today only had a half a liter so far. She also voiced some suicidal thoughts to someone in the ED but she adamantly denies this to me. She is pink slipped because of that. She has had previous admissions where she voiced suicidal thoughts. She is depressed and most of her alcohol abuse is attributed to social issues concerning losing custody of her children 2 years ago. She has a 6 year old she lost custody of and an 18 year old daughter who she doesn't see. She says, her counselor who is trying to get her to detox told her to go to the ED to seek help while talking to her today. In the ED, vitals were stable but diastolic blood pressure was elevated. Laboratory workup was unremarkable. Alcohol level was 370. Urine drug screen showed marijuana. Denies headache, blurry vision, chest pain, shortness breath, abdominal pain, diarrhea, constipation, urinary symptoms, or neurological symptoms. Past Med Surg Social Fam HX - Past Medical History Medical history: asthma, hyperlipidemia, hypertension Additional medical history: alcohol abuse Psychiatric history: bipolar - Past Surgical History Surgical History: other Additional surgical history: Leep procedure - Social History Smoking Status: Current every day smoker Smokeless Tobacco Status: No Alcohol use: recent Drug use: marijuana, prescription drug abuse - Family History Maternal Grandmother Family Member Ethnicity: Non- Living Status: Hx Family Cancer: Yes (Throat cancer) Internal Medicine - H&P: Meds Multivitamin [One Daily Multivitamin] 1 tab PO DAILY 04/13/18 [History] 3 Allergy/AdvReac Type Severity Reaction Status Date / Time ibuprofen [From Motrin] Allergy Swelling Verified 05/13/18 22:18 of Lip/Tongue/Throat All Systems PM: A 10-system review of systems was performed and is negative for pertinent findings except as documented above in the HPI. Review of systems: All systems reviewed are negative except for as mentioned above - Constitutional Vitals: Temp Pulse Resp BP Pulse Ox 98.5 F 102 14 139/100 94 05/13/18 14:54 05/13/18 14:54 05/13/18 14:54 05/13/18 14:54 05/13/18 14:54 Exam: GEN: NAD HEENT: AT, NC, No cyanosis, oral mucosa is moist, No JVD Lymphatics: No lymphadenoapthy Eyes: Extrocular muscles intact, anicteric CVS:RRR. S1, S2, No m/r/g RESP: CTAB ABD: Soft, NT, ND, +BS EXT: No edema, No rashes, 2+ DP NEURO: Nonfocal, CN II-XII intact, No focal motor or sensory deficits Psych: Cooperative, Not anxious or depressed Internal Med - H&P Results - Labs CBC & Chem 7: 05/13/18 15:46 05/13/18 15:46 Labs: Short CBC 05/13/18 Range/Units 15:46 WBC 9.1 (4.3-11.1) K/mcL Hgb 16.9 H (11.5-15.4) g/dL Hct 49.2 H (35.3-44.9) % Plt Count 290 (140-400) K/mcL Neutrophils # 4.3 (1.6-8.9) K/mcL BMP 05/13/18 15:46 Sodium 143 Potassium 3.9 Chloride 111 H Carbon Dioxide 20 L BUN 15 Creatinine 0.60 Glucose 93 Calcium 9.2 Cardiac Enzymes 05/13/18 05/13/18 Range/Units 15:46 19:43 Troponin I < 0.03 < 0.03 (< 0.04) ng/mL Urine 05/13/18 Range/Units 15:40 Urine Color Yellow (Yellow) Urine Clarity Cloudy A (Clear) Urine pH 6.5 (5.0-8.0) pH Units Ur Specific [place] 1.010 (1.010-1.025) Urine Protein Negative (Neg-Trace) mg/dL Urine Glucose (UA) Normal (Normal) mg/dL - Impressions ITS Impressions Chest X-Ray 05/13/18 15:35 IMPRESSION: No acute cardiopulmonary disease. D/ / Rahul Davey MD / Rahul Davey MD Interpreting Provider: Rahul Davey MD - Assessment and plan (1) Alcohol withdrawal Current Visit: No Status: Acute Assessment and plan: We will place patient on CIWA protocol. We will place on multivitamins, thiamine, folic acid. Qualifiers: Complication of substance-induced condition: uncomplicated Qualified Code(s ): F10.230 - Alcohol dependence with withdrawal, uncomplicated (2) Alcohol abuse Current Visit: Yes Status: Acute Assessment and plan: Social consult placed. The patient wants help. She was counseled. (3) Elevated blood pressure reading Current Visit: Yes Status: Acute Assessment and plan: Does not have a diagnosis of hypertension. We will put on IV hydralazine when necessary for now. Might be a sign of withdrawals. (4) Suicidal ideation Current Visit: No Status: Acute Assessment and plan: Consult psychiatry. Sitter. She denies this to me but voiced it reportedly to someone in the ED. The patient is depressed and would benefit from psych eval either way. (5) DVT prophylaxis Current Visit: Yes Status: Acute Assessment and plan: scds - Time Spent With Patient Total time spent is greater than 50% in coordination of care (as documented) at patient's floor/unit and/or counseling patient:
[2018-05-13] MEDS ORDERED: Naloxone 0.4 MG/ML INJ IVP PRN (23:11)
[2018-05-14] MEDS: 0.9 % Sodium Chloride 1,000 ML IVC SCH ×2 (00:17→10:45)
[2018-05-14 07:18] LABS: Basophils # 0.1 K/mcL (0.0-0.2); Basophils % 1.2 %; Eosinophils # 0.2 K/mcL (0.0-0.6); Eosinophils % 4.6 %; Hematocrit 43.9 % (35.3-44.9); Hemoglobin 15.1 g/dL (11.5-15.4); Immature Granulocytes % 0.2 % (0-4); Lymphocytes % 41.2 %; Mean Corpuscular HGB Conc 34.4 g/dL (31.6-35.5); Mean Corpuscular Hemoglobin 32.1 pg (28.0-33.3); Mean Corpuscular Volume 93.4 fL (83.0-100.0); Mean Platelet Volume 9.4 fL (9.4-12.4); Monocytes # 0.4 K/mcL (0.0-1.3); Monocytes % 8.1 %; Neutrophils # 2.2 K/mcL (1.6-8.9); Platelet Count 227 K/mcL (140-400); Red Cell Distribution Width 12.3 % (11.5-14.5); Segmented Neutrophils % 44.7 %
[2018-05-14 07:35] LABS: BUN/Creatinine Ratio 29 (6-26); Blood Urea Nitrogen 16 mg/dL (6-20); Carbon Dioxide 20 mEq/L (23-29); Chloride 109 mEq/L (98-107); Glucose 86 mg/dL (70-105); Osmolality,Calculated 292 (280-300); Potassium 3.9 mEq/L (3.5-5.1); Sodium 141 mEq/L (136-145); eGFR For African Americans > 60 (> 60); eGFR For Non-African Americans > 60 (> 60)
[2018-05-14 07:50] LABS: Thyroid Stimulating Hormone 1.564 mcIU/mL (0.340-5.600)
[2018-05-14] MEDS: Nicotine 14 MG PATCH.TD24 TD SCH (07:57)
[2018-05-14] MEDS: Thiamine (B-1) 100 MG TABLET PO SCH (07:58)
[2018-05-14] MEDS: Vitamin B Complex/Vit C/Vit E 1 EACH TABLET PO SCH (07:58)
[2018-05-14] MEDS: Folic Acid 1 MG TABLET PO SCH (07:58)
[2018-05-14] MEDS: *HR* LORazepam 2 MG/ML VIAL IVP PRN ×6 (08:06→23:33)
--- NOTE | 2018-05-14 14:44 | Internal Med Progress Note ---
Date of Encounter: 05/14/18 Time of Encounter: 14:40 - Assessment and plan (1) Alcohol withdrawal Current Visit: No Status: Acute Assessment and plan: Known history of alcoholism. Drinks 1 L of vodka per day. Currently appears to be in alcohol withdrawal; appears tremulous and sweating on 05/13 examined. Cont CIWA, multivitamins, thiamine, folic acid. Qualifiers: Complication of substance-induced condition: uncomplicated Qualified Code(s ): F10.230 - Alcohol dependence with withdrawal, uncomplicated (2) Suicidal ideation Current Visit: No Status: Acute Assessment and plan: reportedly voiced SI to someone in the ED. Currently denies SI. Nonetheless, the patient is depressed and would benefit from psych eval either way. Psych consulted. Cont 1:1 sitter (3) Alcohol abuse Current Visit: Yes Status: Acute Assessment and plan: Social consult placed. The patient wants help. (4) Elevated blood pressure reading Current Visit: Yes Status: Acute Assessment and plan: Does not have a diagnosis of hypertension. Might be a sign of withdrawal however BP continues to be high on 05/13 exam. Add amlodipine (5) DVT prophylaxis Current Visit: Yes Status: Acute Assessment and plan: scds - Time Spent With Patient Total time spent is greater than 50% in coordination of care (as documented) at patient's floor/unit and/or counseling patient: - Subjective Interval history: Seen and cemented at bedside. Patient is known to me from previous admission. Says she does not feel well, feels like she is in withdrawal. She voices desire to stop drinking area denies suicidal ideation but says she is depressed. - Constitutional Vitals: Temp Pulse Resp BP Pulse Ox 99.3 F 107 16 154/115 96 05/14/18 11:00 05/14/18 11:00 05/14/18 11:00 05/14/18 11:05/14/18 11:00 General appearance: Present: disheveled, mild distress, A&O X 3 - Head Head exam: Present: atraumatic, normocephalic - Eye Eye exam: Present: PERRL, conjuntiva pink, sclera anicteric Pupils: Present: PERRL - Neck Neck exam general surgery: Present: supple, trachea midline. Absent: lymphadenopathy - Respiratory Respiratory exam: Present: CTAB. Absent: accessory muscle use, rales, rhonchi, wheezes - Cardiovascular Cardiovascular exam: Present: RRR, +S1, +S2. Absent: diastolic murmur, gallop, rubs, systolic murmur - GI/Abdominal GI/Abdominal exam: Present: normal bowel sounds, soft, no peritoneal signs. Absent: distended, tenderness - Extremities Exam Extremities exam: Present: warm, radial pulses palpable and symmetrical. Absent : calf tenderness, cyanotic, pedal edema - Neurological Exam Neurological exam: Present: CN II-XII intact, oriented X3, no focal deficits. Absent: pronater drift, facial droop, speech deficit - Skin Skin exam: Present: dry, intact Internal Medicine: Result - Labs CBC & Chem 7: 05/14/18 07:01 05/14/18 07:01 Labs: Short CBC 05/14/18 Range/Units 07:01 WBC 5.0 (4.3-11.1) K/mcL Hgb 15.1 D (11.5-15.4) g/dL Hct 43.9 (35.3-44.9) % Plt Count 227 (140-400) K/mcL Neutrophils # 2.2 (1.6-8.9) K/mcL BMP 05/14/18 07:01 Sodium 141 Potassium 3.9 Chloride 109 H Carbon Dioxide 20 L BUN 16 Creatinine 0.56 L Glucose 86 Calcium 9.0 Consult Discharge Plan - Plan Referrals: NONE,PCP [Primary Care Provider] -
[2018-05-14] MEDS ORDERED: *HR* LORazepam 2 MG/ML VIAL IVP PRN (16:21)
[2018-05-14] MEDS: amLODIPine 5 MG TABLET PO SCH (16:51)
--- NOTE | 2018-05-14 18:31 | Consult Note ---
Date of Encounter: 05/14/18 Time of Encounter: 17:30 Assessment & Recommendation (1) Suicidal ideation Current visit: No Status: Acute (2) EtOH dependence Current visit: Yes Status: Chronic Qualifiers: Substance use status: with intoxication Complication of substance-induced condition: uncomplicated Qualified Code(s): F10.220 - Alcohol dependence with intoxication, uncomplicated (3) Alcohol abuse Current visit: No Status: Chronic (4) Alcohol withdrawal Current visit: No Status: Acute Qualifiers: Complication of substance-induced condition: with perceptual disturbance Qualified Code(s): F10.232 - Alcohol dependence with withdrawal with perceptual disturbance (5) Bipolar disorder with depression Current visit: No Status: Acute History of Present Illness Requesting Physician: Gibson Farah History of present illness: Pt is a 37 yo, , female, never , with 2 children (18 with sister ,6 with CPS) who presents for bipolar Depression and alcohol use D/O severe to the emergency department. Pt noted thoughts that she has been haveing thoughts to "do it. Pt noted reports hisotry of bipolar Deprssion with suicidal ideations. Pt noted additionally she has been drinking 1 liter of vodka per day for the past 2 years. Pt noted she attempted to sober up 6 months ago and had a seizure. Pt noted "It has been very hard to sober up." Pt noted she felt safe and comfortable on the unit. Pt was in agreement with treatment plan. Pt noted that she is doing better today. Pt noted she slept 1-2 hours last night. Pt noted her appetite is reduced. Pt rated her depression a 10, on a scale of zero to ten with ten being the worst and zero being none. Pt rate her anxiety a 10, on the same scale. Pt denied any current visual or auditory hallucinations. Pt denied any thoughts to harm herself or anyone else. Pt noted she live alone in [place], [place]. Pt noted that her highest level of education is 12th grade with a GED. Pt noted she is currently unemployed, however receives SSDI. Pt noted multiple inpt psychiatric hospitalizations. Pt noted two previous suicide attempts via ligiture. Pt denied any suicides in her family. PT noted her mother, grandmother and daughter all have have mood D/O or Bipolar D/ O. PT agreed to start lurasidone for medication management of Bipolar D/O. Pt was educated on the risks benefits and side-effects of these medications including no medication, pt was in agreement. 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 Pt denied any hx of HIV or Hep C. No TD noted, AIMS=0 Tobacco: 1ppd Alcohol: she has been drinking 1 liter of vodka per day for the past [address]: occasional marijuana use Caffeine: Denies 1.Interval hx 2.Continue current medications 3.Review current labs 4.Pt had an opportunity to ask questions and discuss current treatment plan. 5.Supportive therapy was provided 6.Pt encouraged to consider group or individual therapy 7.Pt was in agreement with treatment plan. 8.Pt was educated on the risks benefits and side effects of current medications. CC: Gibson Farah Past Med Surg Social Fam HX - Past Medical History Medical history: asthma, hyperlipidemia, hypertension - Past Psychiatric History Psychiatric history: Reports: anxiety, bipolar, depression Family psychiatric history: Yes Family Psychiatric History Details: Mom, sister, daughter Family History of Suicide: None - Past Surgical History Surgical History: other - Social History Smoking Status: Current every day smoker Smokeless Tobacco Status: No Alcohol use: heavy, recent Drug use: marijuana, prescription drug abuse - Family History Maternal Grandmother Family Member Ethnicity: Non- Living Status: Hx Family Cancer: Yes (Throat cancer) Medications & Allergies Multivitamin [One Daily Multivitamin] 1 tab PO DAILY 04/13/18 [History] 3 Allergy/AdvReac Type Severity Reaction Status Date / Time ibuprofen [From Motrin] Allergy Swelling Verified 05/13/18 22:18 of Lip/Tongue/Throat Review of Systems Constitutional: Denies: fever, chills, weakness, weight change Eyes: Denies: eye pain, vision change Ears, Nose, Throat: Denies: ear pain, throat pain, dental pain, hearing loss, congestion Cardiovascular: Denies: chest pain, palpitations, dyspnea on exertion Respiratory: Denies: cough, dyspnea, wheezes Gastrointestinal: Denies: abdominal pain, nausea, vomiting, diarrhea, constipation Genitourinary female: Denies: urgency, dysuria, frequency, abnormal menses, dyspareunia Musculoskeletal: Denies: joint swelling, joint pain Integumentary: Denies: rash, lesions, pruritus Neurological: Denies: headache, weakness, numbness, memory loss Psychiatric: Reports: depression, anxiety, suicidal ideation, anhedonia, difficulty concentrating, irritability, mood swings Endocrine: Denies: fatigue, heat or cold intolerance Hematologic/Lymphatic: Denies: easy bruising, lymphadenopathy Allergic/Immunologic: Denies: urticaria, itchy eyes Psychiatry Exam - Constitutional Vitals: Temp Pulse Resp BP Pulse Ox 99.4 F 112 16 142/107 95 05/14/18 16:26 05/14/18 16:26 05/14/18 16:26 05/14/18 16:26 05/14/18 16:26 General appearance: age & developmentally appropriate, well-groomed, well- nourished - Musculoskeletal Gait: normal Station: relaxed Strength & Tone: normal for patient - Psychiatric Patient Orientation: Yes Person, Yes Time, Yes Place Level of alertness: Alert Behavior: cooperative, anxious Psychomotor activity: Normal Eye Contact: Minimal Contact Mood Description: Irritable Affect description: congruent with mood, full range Speech Volume: Normal Speech pattern: normal rate, normal rhythm, normal tone, fluent, spontaneous Language & Vocabulary: consistent with education Thought Process: Linear, Goal Oriented Thought Content: Yes Suicidal ideation, No Homicidal ideation, No Overt delusions Perceptual Disturbances: No Auditory hallucinations, No Visual hallucinations Attention Span Ability: Capable of Sustained Attention Memory Description: Grossly Intact Patient Reliability: Reliable Historian Fund of knowledge: Yes abstraction ability, Yes aware of current events Intelligence Estimate: Average Judgment: Poor Insight: Partial Results - Labs Labs: Laboratory Last Values WBC 5.0 K/mcL (4.3-11.1) 05/14/18 07:01 RBC 4.70 M/mcL (3.82-4.97) 05/14/18 07:01 Hgb 15.1 g/dL (11.5-15.4) D 05/14/18 07:01 Hct 43.9 % (35.3-44.9) 05/14/18 07:01 MCV 93.4 fL (83.0-100.0) 05/14/18 07:01 MCH 32.1 pg (28.0-33.3) 05/14/18 07:01 MCHC 34.4 g/dL (31.6-35.5) 05/14/18 07:01 RDW 12.3 % (11.5-14.5) 05/14/18 07:01 Plt Count 227 K/mcL (140-400) 05/14/18 07:01 MPV 9.4 fL (9.4-12.4) 05/14/18 07:01 Immature Gran % 0.2 % (0-4) 05/14/18 07:01 Seg Neutrophils % 44.7 % 05/14/18 07:01 Lymphocytes % 41.2 % 05/14/18 07:01 Monocytes % 8.1 % 05/14/18 07:01 Eosinophils % 4.6 % 05/14/18 07:01 Basophils % 1.2 % 05/14/18 07:01 Neutrophils # 2.2 K/mcL (1.6-8.9) 05/14/18 07:01 Lymphocytes # 2.0 K/mcL (0.6-4.6) 05/14/18 07:01 Monocytes # 0.4 K/mcL (0.0-1.3) 05/14/18 07:01 Eosinophils # 0.2 K/mcL (0.0-0.6) 05/14/18 07:01 Basophils # 0.1 K/mcL (0.0-0.2) 05/14/18 07:01 Sodium 141 mEq/L (136-145) 05/14/18 07:01 Potassium 3.9 mEq/L (3.5-5.1) 05/14/18 07:01 Chloride 109 mEq/L (98-107) H 05/14/18 07:01 Carbon Dioxide 20 mEq/L (23-29) L 05/14/18 07:01 BUN 16 mg/dL (6-20) 05/14/18 07:01 Creatinine 0.56 mg/dL (0.60-1.20) L 05/14/18 07:01 Est GFR ( Amer) > 60 (> 60) 05/14/18 07:01 Est GFR (Non-Af Amer) > 60 (> 60) 05/14/18 07:01 BUN/Creatinine Ratio 29 (6-26) H 05/14/18 07:01 Glucose 86 mg/dL (70-105) 05/14/18 07:01 Calculated Osmolality 292 (280-300) 05/14/18 07:01 Calcium 9.0 mg/dL (8.6-10.3) 05/14/18 07:01 Magnesium 2.0 mg/dL (1.6-2.6) 05/14/18 07:01 Troponin I < 0.03 ng/mL (< 0.04) 05/13/18 19:43 TSH 1.564 mcIU/mL (0.340-5.600) 05/14/18 07:01 Urine Color Yellow (Yellow) 05/13/18 15:40 Urine Clarity Cloudy (Clear) A 05/13/18 15:40 Urine pH 6.5 pH Units (5.0-8.0) 05/13/18 15:40 Ur Specific [place] 1.010 (1.010-1.025) 05/13/18 15:40 Urine Protein Negative mg/dL (Neg-Trace) 05/13/18 15:40 Urine Glucose (UA) Normal mg/dL (Normal) 05/13/18 15:40 Urine Ketones Negative mg/dL (Negative) 05/13/18 15:40 Urine Blood Negative (Negative) 05/13/18 15:40 Urine Nitrite Negative (Negative) 05/13/18 15:40 Urine Bilirubin Negative (Negative) 05/13/18 15:40 Urine Urobilinogen Normal mg/dL (Normal) 05/13/18 15:40 Ur Leukocyte Esterase Moderate (Negative) H 05/13/18 15:40 Urine Microscopic RBC 0-3 per hpf (0-3) 05/13/18 15:40 Urine Microscopic WBC 15-30 per hpf (0-3) H 05/13/18 15:40 Ur Squamous Epith Cells Many per lpf (None-Few) H 05/13/18 15:40 Urine Bacteria Few per hpf (None-Few) 05/13/18 15:40 Hyaline Casts None Seen per lpf (None-Few) 05/13/18 15:40 Salicylates < 2.5 mg/dL (15.0-30.0) L 05/13/18 15:46 Urine Opiates Screen Negative ng/mL (Qapfgs=257) 05/13/18 15:40 Acetaminophen < 10 mcg/mL (10-20) L 05/13/18 15:46 Ur Barbiturates Screen Negative ng/mL (Rxdfde=545) 05/13/18 15:40 Ur Phencyclidine Scrn Negative ng/mL (Cutoff=25) 05/13/18 15:40 Ur Amphetamines Screen Negative ng/mL (Onpohh=1351) 05/13/18 15:40 U Benzodiazepines Scrn Negative ng/mL (Yrjiye=740) 05/13/18 15:40 Urine Cocaine Screen Negative ng/mL (Cutoff= 300) 05/13/18 15:40 U Marijuana (THC) Screen Positive ng/mL (Cutoff = 50) H 05/13/18 15:40 Ethyl Alcohol 370 mg/dL (Less than 10) H 05/13/18 15:46 Consult Discharge Plan - Plan Referrals: NONE,PCP [Primary Care Provider] -
[2018-05-14] MEDS: Lurasidone 20 MG TABLET PO SCH (18:38)
[2018-05-15] MEDS: *HR* LORazepam 2 MG/ML VIAL IVP PRN ×7 (01:07→18:02)
[2018-05-15] MEDS: 0.9 % Sodium Chloride 1,000 ML IVC SCH ×2 (01:24→13:40)
[2018-05-15 06:52] LABS: Hemoglobin 16.9 g/dL (11.5-15.4); Mean Corpuscular HGB Conc 35.2 g/dL (31.6-35.5); Mean Corpuscular Hemoglobin 32.3 pg (28.0-33.3); Mean Corpuscular Volume 91.8 fL (83.0-100.0); Platelet Count 237 K/mcL (140-400); Red Blood Count 5.23 M/mcL (3.82-4.97); Red Cell Distribution Width 11.9 % (11.5-14.5)
[2018-05-15 07:28] LABS: BUN/Creatinine Ratio 20 (6-26); Blood Urea Nitrogen 10 mg/dL (6-20); Calcium 9.5 mg/dL (8.6-10.3); Carbon Dioxide 18 mEq/L (23-29); Chloride 107 mEq/L (98-107); Glucose 112 mg/dL (70-105); Osmolality,Calculated 284 (280-300); Potassium 3.6 mEq/L (3.5-5.1); Sodium 137 mEq/L (136-145); eGFR For African Americans > 60 (> 60); eGFR For Non-African Americans > 60 (> 60)
[2018-05-15] MEDS: Nicotine 14 MG PATCH.TD24 TD SCH (08:26)
[2018-05-15] MEDS: Vitamin B Complex/Vit C/Vit E 1 EACH TABLET PO SCH (08:26)
[2018-05-15] MEDS: Thiamine (B-1) 100 MG TABLET PO SCH (08:26)
[2018-05-15] MEDS: amLODIPine 5 MG TABLET PO SCH (08:26)
[2018-05-15] MEDS: Lurasidone 20 MG TABLET PO SCH (08:27)
[2018-05-15] MEDS: Folic Acid 1 MG TABLET PO SCH (08:27)
--- NOTE | 2018-05-15 08:57 | Internal Med Progress Note ---
Date of Encounter: 05/15/18 Time of Encounter: 08:54 - Assessment and plan (1) Alcohol withdrawal Current Visit: No Status: Acute Assessment and plan: Known history of alcoholism. Last drink on day of admission. BAL 370 on arrival. Drinks 1 L of vodka per day. Cont CIWA, multivitamins, thiamine, folic acid. Qualifiers: Complication of substance-induced condition: uncomplicated Qualified Code(s ): F10.230 - Alcohol dependence with withdrawal, uncomplicated (2) Suicidal ideation Current Visit: No Status: Acute Assessment and plan: reportedly voiced SI to someone in the ED. Currently denies SI. Evaluated by Psych who is recommending inpatient psych once medically stable. Patient is pink slipped and may not leave AMA. Cont 1:1 sitter. (3) Essential hypertension Current Visit: Yes Status: Acute Assessment and plan: new diagnosis. Could be be a sign of withdrawal however BP remained elevated. BP improved with adding amlodipine. (4) DVT prophylaxis Current Visit: Yes Status: Acute Assessment and plan: scds (5) Depression Current Visit: Yes Status: Chronic Assessment and plan: latuda started per Psych recommendations Qualifiers: Depression Type: unspecified Qualified Code(s): F32.9 - Major depressive disorder, single episode, unspecified - Time Spent With Patient Total time spent is greater than 50% in coordination of care (as documented) at patient's floor/unit and/or counseling patient: - Subjective Interval history: Seen and examined at bedside. Still in w/d. Says she doesn't want to go to 1 A. She wants to leave. Advised her that she is on a medical hold and not allowed to leave at this time. - Constitutional Vitals: Temp Pulse Resp BP Pulse Ox 98.7 F 98 20 140/96 97 05/15/18 07:00 05/15/18 07:00 05/15/18 07:00 05/15/18 07:00 05/15/18 07:00 General appearance: Present: disheveled, A&O X 3, morbidly obese, no acute distress - Head Head exam: Present: atraumatic, normocephalic - Eye Eye exam: Present: PERRL, conjuntiva pink, sclera anicteric Pupils: Present: PERRL - Neck Neck exam general surgery: Present: supple, trachea midline. Absent: lymphadenopathy - Respiratory Respiratory exam: Present: CTAB. Absent: accessory muscle use, rales, rhonchi, wheezes - Cardiovascular Cardiovascular exam: Present: RRR, +S1, +S2. Absent: diastolic murmur, gallop, rubs, systolic murmur - GI/Abdominal GI/Abdominal exam: Present: normal bowel sounds, soft, no peritoneal signs. Absent: distended, tenderness - Extremities Exam Extremities exam: Present: warm, radial pulses palpable and symmetrical. Absent : calf tenderness, cyanotic, pedal edema - Neurological Exam Neurological exam: Present: CN II-XII intact, oriented X3, no focal deficits. Absent: pronater drift, facial droop, speech deficit - Psychiatric Psychiatric exam: Present: depressed, flat affect - Skin Skin exam: Present: dry, intact Internal Medicine: Result - Labs CBC & Chem 7: 05/15/18 06:35 05/15/18 06:35 Labs: Short CBC 05/15/18 Range/Units 06:35 WBC 9.6 D (4.3-11.1) K/mcL Hgb 16.9 H D (11.5-15.4) g/dL Hct 48.0 H (35.3-44.9) % Plt Count 237 (140-400) K/mcL BMP 05/15/18 06:35 Sodium 137 Potassium 3.6 Chloride 107 Carbon Dioxide 18 L BUN 10 Creatinine 0.50 L Glucose 112 H Calcium 9.5 - VTE Documentation of Mechanical Device: Intermittent pneumatic compression device Consult Discharge Plan - Plan Referrals: NONE,PCP [Primary Care Provider] -
[2018-05-15] MEDS ORDERED: Preparation H Ointment 30 GM TUBE RC PRN (16:44)
[2018-05-15] MEDS ORDERED: Fluconazole 100 MG TABLET PO ONE (16:44)
[2018-05-15 18:33] LABS: Bilirubin,Urine Negative (Negative); Blood,Urine Trace (Negative); Clarity,Urine Cloudy (Clear); Color,Urine Yellow (Yellow); Glucose,Urine (UA) Normal (Normal); Ketones,Urine Trace mg/dL (Negative); Leukocyte Esterase,Urine Large (Negative); Nitrite,Urine Negative (Negative); Protein,Urine 30 mg/dL (Neg-Trace); Specific Gravity,Urine 1.017 (1.010-1.025); Urobilinogen,Urine Normal (Normal)
[2018-05-15 18:35] LABS: Bacteria,Urine Few per hpf (None-Few); Hyaline Casts,Urine None Seen per lpf (None-Few); Squamous Epithelial Cell,Urine Many per lpf (None-Few); WBC,Urine TNTC per hpf (0-3)
[2018-05-15] MEDS: Melatonin 3 MG TABLET PO PRN (20:53)
[2018-05-15] MEDS: Acetaminophen 325 MG TABLET PO PRN (20:53)
[2018-05-16] MEDS: *HR* LORazepam 2 MG/ML VIAL IVP PRN ×7 (01:07→14:25)
[2018-05-16] MEDS ORDERED: *HR* Promethazine 25 MG/ML VIAL IVP PRN (01:24)
[2018-05-16] MEDS: 0.9 % Sodium Chloride 1,000 ML IVC SCH ×3 (01:55→11:35)
[2018-05-16] MEDS: Nicotine 14 MG PATCH.TD24 TD SCH (05:23)
[2018-05-16] MEDS: Lurasidone 20 MG TABLET PO SCH (09:47)
[2018-05-16] MEDS: Thiamine (B-1) 100 MG TABLET PO SCH (09:47)
[2018-05-16] MEDS: Vitamin B Complex/Vit C/Vit E 1 EACH TABLET PO SCH (09:47)
[2018-05-16] MEDS: Folic Acid 1 MG TABLET PO SCH (09:47)
[2018-05-16] MEDS: amLODIPine 5 MG TABLET PO SCH (09:47)
[2018-05-16] MEDS: Acetaminophen 325 MG TABLET PO PRN (09:49)
--- NOTE | 2018-05-16 10:39 | Internal Med Progress Note ---
Date of Encounter: 05/16/18 Time of Encounter: 10:36 - Assessment and plan (1) Alcohol withdrawal Current Visit: No Status: Acute Assessment and plan: Known history of alcoholism. Last drink on day of admission. BAL 370 on arrival. Drinks 1 L of vodka per day. Cont CIWA, multivitamins, thiamine, folic acid. Still having alcohol withdrawal symptoms on 05/16 exam Qualifiers: Complication of substance-induced condition: uncomplicated Qualified Code(s ): F10.230 - Alcohol dependence with withdrawal, uncomplicated (2) Suicidal ideation Current Visit: No Status: Acute Assessment and plan: reportedly voiced SI to someone in the ED. Currently denies SI. Evaluated by Psych who is recommending inpatient psych once medically stable. Patient is pink slipped and may not leave AMA. Cont 1:1 sitter. (3) Essential hypertension Current Visit: Yes Status: Acute Assessment and plan: new diagnosis. Could be be a sign of withdrawal however BP remained elevated. BP improved with adding amlodipine. (4) Depression Current Visit: Yes Status: Chronic Assessment and plan: latuda per Psych recommendations Qualifiers: Depression Type: unspecified Qualified Code(s): F32.9 - Major depressive disorder, single episode, unspecified (5) DVT prophylaxis Current Visit: Yes Status: Acute Assessment and plan: scds - Time Spent With Patient Total time spent is greater than 50% in coordination of care (as documented) at patient's floor/unit and/or counseling patient: - Subjective Interval history: Seen and examined at bedside. Says she feels a little bit better and got some sleep with the melatonin last night. She still feels like she is in withdrawal and feels like her whole body shaking inside. Does not have much of an appetite. - Constitutional Vitals: Temp Pulse Resp BP Pulse Ox 98.8 F 107 18 134/94 95 05/16/18 09:00 05/16/18 09:00 05/16/18 09:00 05/16/18 09:00 05/16/18 09:00 General appearance: Present: disheveled, A&O X 3, morbidly obese, no acute distress - Head Head exam: Present: atraumatic, normocephalic - Eye Eye exam: Present: PERRL, conjuntiva pink, sclera anicteric Pupils: Present: PERRL - Neck Neck exam general surgery: Present: supple, trachea midline. Absent: lymphadenopathy - Respiratory Respiratory exam: Present: CTAB. Absent: accessory muscle use, rales, rhonchi, wheezes - Cardiovascular Cardiovascular exam: Present: RRR, +S1, +S2. Absent: diastolic murmur, gallop, rubs, systolic murmur - GI/Abdominal GI/Abdominal exam: Present: normal bowel sounds, soft, no peritoneal signs. Absent: distended, tenderness - Extremities Exam Extremities exam: Present: warm, radial pulses palpable and symmetrical. Absent : calf tenderness, cyanotic, pedal edema - Neurological Exam Neurological exam: Present: CN II-XII intact, oriented X3, no focal deficits. Absent: pronater drift, facial droop, speech deficit - Psychiatric Psychiatric exam: Present: anxious - Skin Skin exam: Present: dry, intact Internal Medicine: Result - Labs CBC & Chem 7: 05/15/18 06:35 05/15/18 06:35 Labs: Urine 05/15/18 Range/Units 18:00 Urine Color Yellow (Yellow) Urine Clarity Cloudy A (Clear) Urine pH 7.0 (5.0-8.0) pH Units Ur Specific [place] 1.017 (1.010-1.025) Urine Protein 30 H (Neg-Trace) mg/dL Urine Glucose (UA) Normal (Normal) mg/dL - VTE Documentation of Mechanical Device: Intermittent pneumatic compression device Consult Discharge Plan - Plan Referrals: NONE,PCP [Primary Care Provider] -
--- NOTE | 2018-05-16 14:13 | Event Note ---
Date of Encounter: 05/16/18 Time of Encounter: 14:12 Alcohol withdrawal seems to be progressing. Patient is tremulous, sweating and tearful. Transfer to ICU stepdown and start Precedex
[2018-05-16] MEDS ORDERED: 0.9 % Sodium Chloride 500 ML ONE (15:27)
[2018-05-16] MEDS: Dexmedetomidine HCl 400 MCG/100 ML MLS IVC SCH (15:42)
[2018-05-17] MEDS: Lurasidone 20 MG TABLET PO SCH (08:21)
[2018-05-17] MEDS: Thiamine (B-1) 100 MG TABLET PO SCH (08:21)
[2018-05-17] MEDS: amLODIPine 5 MG TABLET PO SCH (08:21)
[2018-05-17] MEDS: Folic Acid 1 MG TABLET PO SCH (08:22)
[2018-05-17] MEDS: Vitamin B Complex/Vit C/Vit E 1 EACH TABLET PO SCH (08:22)
[2018-05-17] MEDS: Nicotine 14 MG PATCH.TD24 TD SCH (08:22)
[2018-05-17] MEDS ORDERED: Azithromycin 250 MG TABLET PO ONE (09:31)
[2018-05-17] MEDS ORDERED: cefTRIAXone 250 MG VIAL IM ONE (09:31)
--- NOTE | 2018-05-17 10:17 | Internal Med Progress Note ---
Date of Encounter: 05/17/18 Time of Encounter: 10:05 - Assessment and plan (1) Alcohol withdrawal Current Visit: No Status: Acute Assessment and plan: Known history of alcoholism. Last drink on day of admission. BAL 370 on arrival. Drinks 1 L of vodka per day. Withdrawal symptoms not controlled with CIWA recall; required Precedex drip and transferred to stepdown on 05/16/18. Withdrawal symptoms improving and weaning Precedex drip. Qualifiers: Complication of substance-induced condition: uncomplicated Qualified Code(s ): F10.230 - Alcohol dependence with withdrawal, uncomplicated (2) Suicidal ideation Current Visit: No Status: Acute Assessment and plan: reportedly voiced SI to someone in the ED. Currently denies SI. Discussed case with Dr. Kaur (Psychiatry) on 05/15/18 who is recommending inpatient psych once medically stable. Patient is pink slipped and may not leave AMA. Cont 1:1 sitter. (3) Essential hypertension Current Visit: Yes Status: Acute Assessment and plan: new diagnosis. Could be be a sign of withdrawal however BP remained elevated. BP improved with adding amlodipine. (4) Depression Current Visit: Yes Status: Chronic Assessment and plan: latuda per Psych recommendations Qualifiers: Depression Type: unspecified Qualified Code(s): F32.9 - Major depressive disorder, single episode, unspecified (5) Gonorrhea Current Visit: Yes Status: Acute Assessment and plan: Symptomatic with vaginal discharge and dysuria. Gonorrhea PCR positive and urine. Treat with ceftriaxone 250 mg IM 1 dose and azithromycin 1 g by mouth 1 dose. (6) DVT prophylaxis Current Visit: Yes Status: Acute Assessment and plan: scds - Time Spent With Patient Total time spent is greater than 50% in coordination of care (as documented) at patient's floor/unit and/or counseling patient: - Subjective Interval history: Seen and examined at bedside. She is resting in bed. Appears comfortable. Says she feels better and withdrawal symptoms are improving. Still is a little shaky and having cold sweats otherwise overall improving. Still complaining of vaginal discomfort and discharge. She is aware of positive gonorrhea results. - Constitutional Vitals: Temp Pulse Resp BP Pulse Ox 97.9 F 98 16 104/91 100 05/17/18 06:45 05/17/18 06:45 05/17/18 06:45 05/17/18 06:45 05/17/18 06:45 General appearance: Present: disheveled, A&O X 3, morbidly obese, no acute distress - Head Head exam: Present: atraumatic, normocephalic - Eye Eye exam: Present: PERRL, conjuntiva pink, sclera anicteric Pupils: Present: PERRL - Neck Neck exam general surgery: Present: supple, trachea midline. Absent: lymphadenopathy - Respiratory Respiratory exam: Present: CTAB. Absent: accessory muscle use, rales, rhonchi, wheezes - Cardiovascular Cardiovascular exam: Present: RRR, +S1, +S2. Absent: diastolic murmur, gallop, rubs, systolic murmur - GI/Abdominal GI/Abdominal exam: Present: normal bowel sounds, soft, no peritoneal signs. Absent: distended, tenderness - Extremities Exam Extremities exam: Present: warm, radial pulses palpable and symmetrical. Absent : calf tenderness, cyanotic, pedal edema - Neurological Exam Neurological exam: Present: CN II-XII intact, oriented X3, no focal deficits. Absent: pronater drift, facial droop, speech deficit - Skin Skin exam: Present: dry, intact Internal Medicine: Result - Labs CBC & Chem 7: 05/15/18 06:35 05/15/18 06:35 - VTE Documentation of Mechanical Device: Intermittent pneumatic compression device Consult Discharge Plan - Plan Referrals: NONE,PCP [Primary Care Provider] -
[2018-05-17] MEDS ORDERED: CEFTRIAXONE IVP ONE (10:40)
[2018-05-17] MEDS ORDERED: WATER FOR INJ IVP ONE (10:40)
[2018-05-17] MEDS: Dexmedetomidine HCl 400 MCG/100 ML MLS IVC SCH (12:21)
[2018-05-17] MEDS ORDERED: 0.9 % Sodium Chloride 500 ML ONE (13:43)
[2018-05-17] MEDS: *HR* LORazepam 2 MG/ML VIAL IVP PRN ×2 (15:45→22:31)
--- NOTE | 2018-05-17 20:35 | Electrocardiograph Report ---
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
[2018-05-17] MEDS: Melatonin 3 MG TABLET PO PRN (21:05)
[2018-05-18] MEDS: Acetaminophen 325 MG TABLET PO PRN (04:22)
[2018-05-18] MEDS: *HR* LORazepam 2 MG/ML VIAL IVP PRN (04:22)
[2018-05-18 06:19] LABS: Hematocrit 42.7 % (35.3-44.9); Hemoglobin 15.4 g/dL (11.5-15.4); Mean Corpuscular HGB Conc 36.1 g/dL (31.6-35.5); Mean Corpuscular Volume 91.4 fL (83.0-100.0); Mean Platelet Volume 10.7 fL (9.4-12.4); Platelet Count 175 K/mcL (140-400); Red Blood Count 4.67 M/mcL (3.82-4.97); Red Cell Distribution Width 11.9 % (11.5-14.5)
[2018-05-18 06:59] LABS: BUN/Creatinine Ratio 25 (6-26); Blood Urea Nitrogen 14 mg/dL (6-20); Calcium 9.4 mg/dL (8.6-10.3); Carbon Dioxide 16 mEq/L (23-29); Chloride 109 mEq/L (98-107); Glucose 142 mg/dL (70-105); Osmolality,Calculated 291 (280-300); Potassium 3.4 mEq/L (3.5-5.1); Sodium 139 mEq/L (136-145); eGFR For African Americans > 60 (> 60); eGFR For Non-African Americans > 60 (> 60)
[2018-05-18] MEDS: Vitamin B Complex/Vit C/Vit E 1 EACH TABLET PO SCH (08:21)
[2018-05-18] MEDS: amLODIPine 5 MG TABLET PO SCH (08:21)
[2018-05-18] MEDS: Nicotine 14 MG PATCH.TD24 TD SCH (08:22)
[2018-05-18] MEDS: Lurasidone 20 MG TABLET PO SCH (08:22)
[2018-05-18] MEDS: Thiamine (B-1) 100 MG TABLET PO SCH (08:22)
[2018-05-18] MEDS: Folic Acid 1 MG TABLET PO SCH (08:22)
--- NOTE | 2018-05-18 10:06 | Internal Med Progress Note ---
Date of Encounter: 05/18/18 Time of Encounter: 10:00 - Assessment and plan (1) Alcohol withdrawal Current Visit: No Status: Acute Assessment and plan: Known history of alcoholism. Last drink on day of admission. BAL 370 on arrival. Drinks 1 L of vodka per day. Withdrawal symptoms not controlled with CIWA protocol; required Precedex drip and transferred to stepdown on 05/16/18. Cont to have moderate withdrawal symptoms on 05/18 exam (agitation, tachycardia, hypertensive). Cont Precedex drip. Qualifiers: Complication of substance-induced condition: uncomplicated Qualified Code(s ): F10.230 - Alcohol dependence with withdrawal, uncomplicated (2) Suicidal ideation Current Visit: No Status: Acute Assessment and plan: reportedly voiced SI to someone in the ED. Currently denies SI. Discussed case with Dr. Kaur (Psychiatry) on 05/15/18 who is recommending inpatient psych once medically stable. Patient is pink slipped and may not leave AMA. Cont 1:1 sitter. (3) Essential hypertension Current Visit: Yes Status: Acute Assessment and plan: new diagnosis. Could be be a sign of withdrawal however BP remained elevated. BP improved with adding amlodipine. (4) Depression Current Visit: Yes Status: Chronic Assessment and plan: latuda per Psych recommendations Qualifiers: Depression Type: unspecified Qualified Code(s): F32.9 - Major depressive disorder, single episode, unspecified (5) Gonorrhea Current Visit: Yes Status: Acute Assessment and plan: Symptomatic with vaginal discharge and dysuria. Gonorrhea PCR positive and urine. Treat with ceftriaxone 250 mg IM 1 dose and azithromycin 1 g by mouth 1 dose. (6) DVT prophylaxis Current Visit: Yes Status: Acute Assessment and plan: scds - Time Spent With Patient Total time spent is greater than 50% in coordination of care (as documented) at patient's floor/unit and/or counseling patient: - Subjective Interval history: Seen and examined at bedside. Laying in bed. Appears uncomfortable. Anxious and tearful. Says she feel like she is going to jump out of her body. - Constitutional Vitals: Temp Pulse Resp BP Pulse Ox 99.1 F 98 20 137/102 97 05/18/18 08:05 05/18/18 08:29 05/18/18 08:05 05/18/18 08:05 05/18/18 08:05 General appearance: Present: disheveled, mild distress, A&O X 3, morbidly obese - Head Head exam: Present: atraumatic, normocephalic - Eye Eye exam: Present: PERRL, conjuntiva pink, sclera anicteric Pupils: Present: PERRL - Neck Neck exam general surgery: Present: supple, trachea midline. Absent: lymphadenopathy - Respiratory Respiratory exam: Present: CTAB. Absent: accessory muscle use, rales, rhonchi, wheezes - Cardiovascular Cardiovascular exam: Present: RRR, +S1, +S2. Absent: diastolic murmur, gallop, rubs, systolic murmur - GI/Abdominal GI/Abdominal exam: Present: normal bowel sounds, soft, no peritoneal signs. Absent: distended, tenderness - Extremities Exam Extremities exam: Present: warm, radial pulses palpable and symmetrical. Absent : calf tenderness, cyanotic, pedal edema - Neurological Exam Neurological exam: Present: CN II-XII intact, oriented X3, no focal deficits. Absent: pronater drift, facial droop, speech deficit - Psychiatric Psychiatric exam: Present: agitated, anxious, flat affect - Skin Skin exam: Present: dry, intact, warm Internal Medicine: Result - Labs CBC & Chem 7: 05/18/18 05:49 05/18/18 05:49 Labs: Short CBC 05/18/18 Range/Units 05:49 WBC 7.8 (4.3-11.1) K/mcL Hgb 15.4 D (11.5-15.4) g/dL Hct 42.7 (35.3-44.9) % Plt Count 175 (140-400) K/mcL BMP 05/18/18 05:49 Sodium 139 Potassium 3.4 L Chloride 109 H Carbon Dioxide 16 L BUN 14 Creatinine 0.56 L Glucose 142 H Calcium 9.4 - VTE Documentation of Mechanical Device: Intermittent pneumatic compression device Consult Discharge Plan - Plan Referrals: Erin Tapia [Advanced Practice Nurse] - 05/29/18 3:00 pm (PLEASE SHOW UP FOR THIS APPOINTMENT OR CALL 24HOURS PRIOR TO YOUR APPOINTMENT TO CANCEL [phone]. THEY SAID IF YOU DON'T SHOW UP THIS TIME YOU WILL BE DISMISSED FROM THE OFFICE)
[2018-05-18] MEDS ORDERED: 0.9 % Sodium Chloride 250 ML ONE (10:27)
[2018-05-18] MEDS: Dexmedetomidine HCl 400 MCG/100 ML MLS IVC SCH ×2 (11:00→23:49)
[2018-05-18] MEDS ORDERED: 0.9 % Sodium Chloride 500 ML ONE (20:45)
[2018-05-19] MEDS: Acetaminophen 325 MG TABLET PO PRN ×2 (06:52→13:29)
[2018-05-19] MEDS: Vitamin B Complex/Vit C/Vit E 1 EACH TABLET PO SCH (08:19)
[2018-05-19] MEDS: Lurasidone 20 MG TABLET PO SCH (08:19)
[2018-05-19] MEDS: amLODIPine 5 MG TABLET PO SCH (08:19)
[2018-05-19] MEDS: Nicotine 14 MG PATCH.TD24 TD SCH (08:19)
[2018-05-19] MEDS: Thiamine (B-1) 100 MG TABLET PO SCH (08:19)
[2018-05-19] MEDS: Folic Acid 1 MG TABLET PO SCH (08:19)
[2018-05-19] MEDS: *HR* LORazepam 2 MG/ML VIAL IVP PRN (13:29)
--- NOTE | 2018-05-19 16:11 | Internal Med Progress Note ---
Date of Encounter: 05/19/18 Time of Encounter: 16:09 - Assessment and plan (1) Alcohol withdrawal Current Visit: No Status: Acute Assessment and plan: Went into DT's earlier now off the precedex gtt cont CIWA switched to PO Ativan PRN Cont Thiamine, folic acids and MVT PO counseled to quit drinking alcohol Medically stable, so will transfer her to 3B tele today Qualifiers: Complication of substance-induced condition: uncomplicated Qualified Code(s ): F10.230 - Alcohol dependence with withdrawal, uncomplicated (2) Suicidal ideation Current Visit: No Status: Acute Assessment and plan: reportedly voiced SI to someone in the E Currently denies SI. Dr. Kaur (Psychiatry) on recommending inpatient psych once medically stable Patient is pink slipped and Cont 1:1 sitter. (3) Depression Current Visit: Yes Status: Chronic Assessment and plan: latuda per Psych recommendations Qualifiers: Depression Type: unspecified Qualified Code(s): F32.9 - Major depressive disorder, single episode, unspecified (4) DVT prophylaxis Current Visit: Yes Status: Acute Assessment and plan: scds (5) Essential hypertension Current Visit: Yes Status: Acute Assessment and plan: stable with Norvasc cont close monitoring (6) Gonorrhea Current Visit: Yes Status: Acute Assessment and plan: Symptomatic with vaginal discharge and dysuria. Gonorrhea PCR positive and urine. Treated with ceftriaxone 250 mg IM 1 dose and azithromycin 1 g by mouth 1 dose - Time Spent With Patient Total time spent is greater than 50% in coordination of care (as documented) at patient's floor/unit and/or counseling patient: - Subjective Interval history: Ms. Sher is a 37 year old female with history of significant alcohol abuse and depression, who presented to ER with alcohol intoxication requesting help for alcoholism. The patient wants to quit drinking but is worried about withdrawals. She stated that she drinks about a liter of vodka a day. She did mention abut suicidal ideation in the ER. Pt was admitted in the hospital and started her on IV hydration. She was seen by Psych and recommend 1A transfer when she is medically stable. Later pt went into DT's so pt transferred to 2N ( step down unit ) and started her on Precedex gtt. Now she is off the precedex gtt this afternoon. She denied any suicidal thoughts now, however c/o major depression and anxiety. - Constitutional Vitals: Temp Pulse Resp BP Pulse Ox 97.8 F 103 20 126/95 98 05/19/18 15:47 05/19/18 15:47 05/19/18 15:47 05/19/18 15:47 05/19/18 15:47 General appearance: Present: cooperative, A&O X 3, morbidly obese, answers questions appropriately - Head Head exam: Present: atraumatic, normal inspection - Neck Neck exam general surgery: Present: supple - Respiratory Respiratory exam: Present: decreased breath sounds. Absent: rales, respiratory distress, rhonchi, wheezes - Cardiovascular Cardiovascular exam: Present: RRR, +S1, +S2. Absent: systolic murmur, tachycardia - GI/Abdominal GI/Abdominal exam: Present: normal bowel sounds, soft. Absent: rebound, rigid, tenderness - Extremities Exam Extremities exam: Absent: calf tenderness, pedal edema, tenderness - Back Exam Back exam: Absent: CVA tenderness (L), CVA tenderness (R) - Neurological Exam Neurological exam: Present: alert, oriented X3 - Psychiatric Psychiatric exam: Present: anxious, depressed. Absent: suicidal ideation Internal Medicine: Result - Labs CBC & Chem 7: 05/18/18 05:49 05/18/18 05:49 - VTE Documentation of Mechanical Device: Intermittent pneumatic compression device Consult Discharge Plan - Plan Referrals: Erin Tapia [Advanced Practice Nurse] - 05/29/18 3:00 pm (PLEASE SHOW UP FOR THIS APPOINTMENT OR CALL 24HOURS PRIOR TO YOUR APPOINTMENT TO CANCEL . THEY SAID IF YOU DON'T SHOW UP THIS TIME YOU WILL BE DISMISSED FROM THE OFFICE)
[2018-05-19] MEDS: *HR* LORazepam 1 MG TABLET PO PRN ×2 (16:18→22:17)
[2018-05-19] MEDS ORDERED: *HR* LORazepam 1 MG TABLET PO ONE (17:47)
--- NOTE | 2018-05-19 19:21 | Consult Note ---
Date of Encounter: 05/19/18 Time of Encounter: 18:00 Assessment & Recommendation (1) Suicidal ideation Current visit: No Status: Acute (2) EtOH dependence Current visit: Yes Status: Chronic Qualifiers: Substance use status: with intoxication Complication of substance-induced condition: uncomplicated Qualified Code(s): F10.220 - Alcohol dependence with intoxication, uncomplicated (3) Alcohol abuse Current visit: No Status: Chronic (4) Alcohol withdrawal Current visit: No Status: Acute Qualifiers: Complication of substance-induced condition: with perceptual disturbance Qualified Code(s): F10.232 - Alcohol dependence with withdrawal with perceptual disturbance (5) Bipolar disorder with depression Current visit: No Status: Acute History of Present Illness Patient: new to practice Requesting Physician: Gibson Farah Reason for consult: Depression with SI History of present illness: Pt is a 37 yo, , female, never , with 2 children (18 with sister ,6 with CPS) who presents for bipolar Depression and alcohol use D/O severe to the emergency department. Pt continues to not a hisotry of bipolar Deprssion with suicidal ideations. Pt noted additionally she has been drinking 1 liter of vodka per day for the past 2 years. Pt noted she attempted to sober up 6 months ago and had a seizure. Pt noted "It has been very hard to sober up." Pt noted she felt safe and comfortable on the unit. Pt was in agreement with treatment plan. Pt noted that she is doing better today. Pt noted she slept "about 4 hours broken last night. Pt noted her appetite is reduced. Pt rated her depression a 10, on a scale of zero to ten with ten being the worst and zero being none. Pt rate her anxiety a 10, on the same scale. Pt denied any current visual or auditory hallucinations. Pt denied any thoughts to harm herself or anyone else. PT agreed to increase lurasidone for medication management of Bipolar D/O. Pt was educated on the risks benefits and side-effects of these medications including no medication, pt was in agreement. 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 Pt denied any hx of HIV or Hep C. No TD noted, AIMS=0 Tobacco: 1ppd Alcohol: she has been drinking 1 liter of vodka per day for the past [address]: occasional marijuana use Caffeine: Denies 1.Interval hx 2.Continue current medications 3.Review current labs 4.Pt had an opportunity to ask questions and discuss current treatment plan. 5.Supportive therapy was provided 6.Pt encouraged to consider group or individual therapy 7.Pt was in agreement with treatment plan. 8.Pt was educated on the risks benefits and side effects of current medications. 9. increase lurasidone to 60 mg PO QAM for mood 10. Start haloperidol 5 mg PO Q6H prn for severe agitation. 11. Transfer Pt to once pt is medically stable and off IV fluids and medications for at least 12 hours. CC: Gibson Farah Past Med Surg Social Fam HX - Past Medical History Medical history: asthma, hyperlipidemia, hypertension - Past Psychiatric History Psychiatric history: Reports: bipolar, prior suicide attempt, previous psychiatric hospitalization Family psychiatric history: Yes Family History of Suicide: None - Past Surgical History Surgical History: other - Social History Smoking Status: Current every day smoker Smokeless Tobacco Status: No Alcohol use: recent Drug use: marijuana, prescription drug abuse - Family History Maternal Grandmother Family Member Ethnicity: Non- Living Status: Hx Family Cancer: Yes (Throat cancer) Medications & Allergies Multivitamin [One Daily Multivitamin] 1 tab PO DAILY 04/13/18 [History] 3 Allergy/AdvReac Type Severity Reaction Status Date / Time ibuprofen [From Motrin] Allergy Swelling Verified 05/13/18 22:18 of Lip/Tongue/Throat Review of Systems Constitutional: Denies: fever, chills, weakness, weight change Eyes: Denies: eye pain, vision change Ears, Nose, Throat: Denies: ear pain, throat pain, dental pain, hearing loss, congestion Cardiovascular: Denies: chest pain, palpitations, dyspnea on exertion Respiratory: Denies: cough, dyspnea, wheezes Gastrointestinal: Denies: abdominal pain, nausea, vomiting, diarrhea, constipation Genitourinary female: Denies: urgency, dysuria, frequency, abnormal menses, dyspareunia Musculoskeletal: Denies: joint swelling, joint pain Integumentary: Denies: rash, lesions, pruritus Neurological: Denies: headache, weakness, numbness, memory loss Psychiatric: Reports: depression, anxiety, suicidal ideation, anhedonia, difficulty concentrating, irritability, mood swings Endocrine: Denies: fatigue, heat or cold intolerance Hematologic/Lymphatic: Denies: easy bruising, lymphadenopathy Allergic/Immunologic: Denies: urticaria, itchy eyes Psychiatry Exam - Constitutional Vitals: Temp Pulse Resp BP Pulse Ox 98.5 F 89 20 130/99 98 05/19/18 18:41 05/19/18 18:41 05/19/18 18:41 05/19/18 18:41 05/19/18 18:41 General appearance: age & developmentally appropriate, well-groomed, well- nourished - Musculoskeletal Gait: normal Station: relaxed Strength & Tone: normal for patient - Psychiatric Patient Orientation: Yes Person, Yes Time, Yes Place Level of alertness: Alert Behavior: calm, cooperative, anxious, tearful, agitated Psychomotor activity: Agitated Eye Contact: Maintains Eye Contact Mood Description: Depressed, Anxious, Irritable Affect description: congruent with mood, tearful, anxious Speech Volume: Normal Speech pattern: normal rate, normal rhythm, normal tone, fluent, spontaneous Language & Vocabulary: consistent with education Thought Process: Linear, Goal Oriented Thought Content: Yes Suicidal ideation, No Homicidal ideation, No Overt delusions Perceptual Disturbances: No Auditory hallucinations, No Visual hallucinations Attention Span Ability: Capable of Focused Attention Memory Description: Grossly Intact Patient Reliability: Reliable Historian Fund of knowledge: Yes abstraction ability, Yes aware of current events Intelligence Estimate: Average Judgment: Limited Insight: Partial Results - Labs Labs: Laboratory Last Values WBC 7.8 K/mcL (4.3-11.1) 05/18/18 05:49 RBC 4.67 M/mcL (3.82-4.97) 05/18/18 05:49 Hgb 15.4 g/dL (11.5-15.4) D 05/18/18 05:49 Hct 42.7 % (35.3-44.9) 05/18/18 05:49 MCV 91.4 fL (83.0-100.0) 05/18/18 05:49 MCH 33.0 pg (28.0-33.3) 05/18/18 05:49 MCHC 36.1 g/dL (31.6-35.5) H 05/18/18 05:49 RDW 11.9 % (11.5-14.5) 05/18/18 05:49 Plt Count 175 K/mcL (140-400) 05/18/18 05:49 MPV 10.7 fL (9.4-12.4) 05/18/18 05:49 Immature Gran % 0.2 % (0-4) 05/14/18 07:01 Seg Neutrophils % 44.7 % 05/14/18 07:01 Lymphocytes % 41.2 % 05/14/18 07:01 Monocytes % 8.1 % 05/14/18 07:01 Eosinophils % 4.6 % 05/14/18 07:01 Basophils % 1.2 % 05/14/18 07:01 Neutrophils # 2.2 K/mcL (1.6-8.9) 05/14/18 07:01 Lymphocytes # 2.0 K/mcL (0.6-4.6) 05/14/18 07:01 Monocytes # 0.4 K/mcL (0.0-1.3) 05/14/18 07:01 Eosinophils # 0.2 K/mcL (0.0-0.6) 05/14/18 07:01 Basophils # 0.1 K/mcL (0.0-0.2) 05/14/18 07:01 Sodium 139 mEq/L (136-145) 05/18/18 05:49 Potassium 3.4 mEq/L (3.5-5.1) L 05/18/18 05:49 Chloride 109 mEq/L (98-107) H 05/18/18 05:49 Carbon Dioxide 16 mEq/L (23-29) L 05/18/18 05:49 BUN 14 mg/dL (6-20) 05/18/18 05:49 Creatinine 0.56 mg/dL (0.60-1.20) L 05/18/18 05:49 Est GFR ( Amer) > 60 (> 60) 05/18/18 05:49 Est GFR (Non-Af Amer) > 60 (> 60) 05/18/18 05:49 BUN/Creatinine Ratio 25 (6-26) 05/18/18 05:49 Glucose 142 mg/dL (70-105) H 05/18/18 05:49 POC Glucose 104 mg/dL (70-99) H 05/14/18 18:23 Calculated Osmolality 291 (280-300) 05/18/18 05:49 Calcium 9.4 mg/dL (8.6-10.3) 05/18/18 05:49 Magnesium 2.0 mg/dL (1.6-2.6) 05/14/18 07:01 Troponin I < 0.03 ng/mL (< 0.04) 05/13/18 19:43 TSH 1.564 mcIU/mL (0.340-5.600) 05/14/18 07:01 Urine Color Yellow (Yellow) 05/15/18 18:00 Urine Clarity Cloudy (Clear) A 05/15/18 18:00 Urine pH 7.0 pH Units (5.0-8.0) 05/15/18 18:00 Ur Specific [place] 1.017 (1.010-1.025) 05/15/18 18:00 Urine Protein 30 mg/dL (Neg-Trace) H 05/15/18 18:00 Urine Glucose (UA) Normal mg/dL (Normal) 05/15/18 18:00 Urine Ketones Trace mg/dL (Negative) H 05/15/18 18:00 Urine Blood Trace (Negative) H 05/15/18 18:00 Urine Nitrite Negative (Negative) 05/15/18 18:00 Urine Bilirubin Negative (Negative) 05/15/18 18:00 Urine Urobilinogen Normal mg/dL (Normal) 05/15/18 18:00 Ur Leukocyte Esterase Large (Negative) H 05/15/18 18:00 Urine Microscopic RBC 5-15 per hpf (0-3) H 05/15/18 18:00 Urine Microscopic WBC TNTC per hpf (0-3) H 05/15/18 18:00 Ur Squamous Epith Cells Many per lpf (None-Few) H 05/15/18 18:00 Urine Bacteria Few per hpf (None-Few) 05/15/18 18:00 Hyaline Casts None Seen per lpf (None-Few) 05/15/18 18:00 Ur Culture Indicated? NO. (NO) A 05/15/18 18:00 Salicylates < 2.5 mg/dL (15.0-30.0) L 05/13/18 15:46 Urine Opiates Screen Negative ng/mL (Aqekvd=914) 05/13/18 15:40 Acetaminophen < 10 mcg/mL (10-20) L 05/13/18 15:46 Ur Barbiturates Screen Negative ng/mL (Pfrseu=360) 05/13/18 15:40 Ur Phencyclidine Scrn Negative ng/mL (Cutoff=25) 05/13/18 15:40 Ur Amphetamines Screen Negative ng/mL (Cesyus=3176) 05/13/18 15:40 U Benzodiazepines Scrn Negative ng/mL (Qtajqw=151) 05/13/18 15:40 Urine Cocaine Screen Negative ng/mL (Cutoff= 300) 05/13/18 15:40 U Marijuana (THC) Screen Positive ng/mL (Cutoff = 50) H 05/13/18 15:40 Ethyl Alcohol 370 mg/dL (Less than 10) H 05/13/18 15:46 Chlam trachomat DNA PCR NOT DETECTED (Not Detect) 05/16/18 19:42 N.gonorrhoeae DNA (PCR) DETECTED (Not Detect) A 05/16/18 19:42 Consult Discharge Plan - Plan Additional Instructions: Transfer Pt to once pt is medically stable and off IV fluids and medications for at least 12 hours. Referrals: Erin Tapia [Advanced Practice Nurse] - 05/29/18 3:00 pm (PLEASE SHOW UP FOR THIS APPOINTMENT OR CALL 24HOURS PRIOR TO YOUR APPOINTMENT TO CANCEL [phone]. THEY SAID IF YOU DON'T SHOW UP THIS TIME YOU WILL BE DISMISSED FROM THE OFFICE)
[2018-05-19] MEDS: Melatonin 3 MG TABLET PO PRN (22:22)
[2018-05-20] MEDS: *HR* LORazepam 1 MG TABLET PO PRN ×2 (05:49→10:56)
[2018-05-20 07:46] VITALS: BP 129/89
[2018-05-20] MEDS: Vitamin B Complex/Vit C/Vit E 1 EACH TABLET PO SCH (08:54)
[2018-05-20] MEDS: Nicotine 14 MG PATCH.TD24 TD SCH (08:54)
[2018-05-20] MEDS: Folic Acid 1 MG TABLET PO SCH (08:54)
[2018-05-20] MEDS: amLODIPine 5 MG TABLET PO SCH (08:54)
[2018-05-20] MEDS: Thiamine (B-1) 100 MG TABLET PO SCH (08:54)
[2018-05-20] MEDS: Lurasidone 20 MG TABLET PO SCH (08:57)
[2018-05-20] MEDS ORDERED: Lurasidone 20 MG TABLET PO SCH (09:00)
--- NOTE | 2018-05-20 10:08 | Discharge Summary ---
- NOTES TO OUTPATIENT PROVIDER Notes to Outpatient Provider: f/u with PCP and Psychiatirist Date of Encounter: 05/20/18 Time of Encounter: 10:06 - Discharge Diagnosis (1) Alcohol withdrawal Priority: Primary Status: Acute Qualifiers: Complication of substance-induced condition: uncomplicated Qualified Code(s ): F10.230 - Alcohol dependence with withdrawal, uncomplicated (2) Suicidal ideation Priority: Primary Status: Acute (3) Depression Priority: Secondary Status: Chronic Qualifiers: Depression Type: unspecified Qualified Code(s): F32.9 - Major depressive disorder, single episode, unspecified (4) DVT prophylaxis Priority: Secondary Status: Acute (5) Essential hypertension Priority: Secondary Status: Acute (6) Gonorrhea Priority: Secondary Status: Acute Hospital course: Ms. Sher is a 37 year old female with history of significant alcohol abuse and depression, who presented to ER with alcohol intoxication requesting help for alcoholism. The patient wants to quit drinking but is worried about withdrawals. She stated that she drinks about a liter of vodka a day. She did mention abut suicidal ideation in the ER. Pt was admitted in the hospital and started her on IV hydration. She was seen by Psych and recommend 1A transfer when she is medically stable. Later pt went into DT's so pt transferred to 2N ( step down unit ) and started her on Precedex gtt. She is off the precedex gtt since y/d. her DT's also improved. She denied any suicidal thoughts now, however c/o major depression and anxiety. Pt was evaluated by psychiatrist and recommend 1A transfer for further care. So will d/c her to 1A Psych unit today. - Time Spent with Patient Total time spent providing and/or coordinating discharge services: - Discharge Medications Home Medications: Multivitamin [One Daily Multivitamin] 1 tab PO DAILY 04/13/18 [History] Acetaminophen [Tylenol] 650 mg PO Q6HR PRN tablet 05/20/18 [Rx] Folic Acid 1 mg PO DAILY tablet 05/20/18 [Rx] LORazepam [Ativan] 1 mg PO Q4HR PRN 5 Days #10 tablet 05/20/18 [Rx] Lurasidone [Latuda] 20 mg PO DAILY tablet 05/20/18 [Rx] Lurasidone [Latuda] 60 mg PO DAILY tablet 05/20/18 [Rx] Melatonin 3 mg PO HS PRN tablet 05/20/18 [Rx] Nicotine Patch [Nicoderm] 14 mg TD DAILY patch.td24 05/20/18 [Rx] Thiamine (B-1) [Vitamin B-1] 100 mg PO DAILY tablet 05/20/18 [Rx] amLODIPine [Norvasc] 10 mg PO DAILY tablet 05/20/18 [Rx] Allergies/Adverse Reactions: 3 Allergy/AdvReac Type Severity Reaction Status Date / Time ibuprofen [From Motrin] Allergy Swelling Verified 05/13/18 22:18 of Lip/Tongue/Throat Date of admission: 05/14/18 16:17 Primary care physician: PCP NONE - Constitutional Vitals: Temp Pulse Resp BP Pulse Ox 98.0 F 90 18 129/89 95 05/20/18 07:45 05/20/18 07:45 05/20/18 07:45 05/20/18 07:45 05/20/18 07:45 General appearance: Present: cooperative, A&O X 3, morbidly obese, answers questions appropriately - Head Head exam: Present: atraumatic, normal inspection - Neck Neck exam general surgery: Present: supple - Respiratory Respiratory exam: Present: decreased breath sounds. Absent: rales, respiratory distress, rhonchi, wheezes - Cardiovascular Cardiovascular exam: Present: RRR, +S1, +S2. Absent: tachycardia - GI/Abdominal GI/Abdominal exam: Present: normal bowel sounds, soft. Absent: rebound, rigid, tenderness - Extremities Exam Extremities exam: Absent: calf tenderness, pedal edema, tenderness - Back Exam Back exam: Absent: CVA tenderness (L), CVA tenderness (R) - Neurological Exam Neurological exam: Present: alert, oriented X3 - Psychiatric Psychiatric exam: Present: normal affect, normal mood - Skin Skin exam: Absent: rash - Patient Status Disposition: Transfer Psychiatric Hosp Condition: Good Overall status at discharge: patient is back to baseline - Discharge Instructions Follow Up With: Erin Tapia [Advanced Practice Nurse] - 05/29/18 3:00 pm (PLEASE SHOW UP FOR THIS APPOINTMENT OR CALL 24HOURS PRIOR TO YOUR APPOINTMENT TO CANCEL [phone]. THEY SAID IF YOU DON'T SHOW UP THIS TIME YOU WILL BE DISMISSED FROM THE OFFICE) Additional Instructions: Transfer Pt to once pt is medically stable and off IV fluids and medications for at least 12 hours. - Diet and Activity Activity: increase activity as tolerated Diet: advance to your usual diet - VTE Documentation of Mechanical Device: Intermittent pneumatic compression device
== END 2018-05-20 11:14 | DRG 897 ==
LOC: EMEROO 14:51 → 3BNU 14:51 → 2NNU 05-16 16:53 → 3BNU 05-19 19:01
PROVIDERS: ADMIT Family Medicine; ATTEND Family Medicine

== ENCOUNTER 2018-05-20 11:17 | Inpatient (IN) ==
[2018-05-20] MEDS ORDERED: *HR* LORazepam 2 MG/ML VIAL IM PRN (12:30)
[2018-05-20] MEDS ORDERED: *HR* LORazepam 1 MG TABLET PO PRN ×3 (12:30→16:09)
[2018-05-20] MEDS ORDERED: Haloperidol Lactate 5 MG/ML VIAL IM PRN (12:44)
[2018-05-20] MEDS ORDERED: MOM Conc 10 ML UD.LIQ PO PRN (12:44)
[2018-05-20] MEDS ORDERED: traZODone 50 MG TABLET PO PRN (12:44)
[2018-05-20] MEDS ORDERED: Mag Hydrox/Al Hydrox/Simeth 30 ML UDC PO PRN (12:44)
[2018-05-20] MEDS ORDERED: Melatonin 3 MG TABLET PO PRN (12:54)
[2018-05-20] MEDS ORDERED: *HR* LORazepam 0.5 MG TABLET PO PRN (12:57)
[2018-05-20] MEDS: Nicotine 14 MG PATCH.TD24 TD SCH (14:20)
[2018-05-20] MEDS ORDERED: *HR* LORazepam 1 MG TABLET PO SCH (15:00)
[2018-05-20] MEDS ORDERED: *HR* LORazepam 1 MG TABLET PO ONE ×3 (16:32→21:00)
[2018-05-20] MEDS: Acetaminophen 325 MG TABLET PO PRN (17:07)
--- NOTE | 2018-05-20 18:44 | Psychiatry History & Physical ---
Date of Encounter: 05/20/18 Time of Encounter: 18:30 History of Present Illness Patient Stated Chief Complaint: really depressed Medicare Admission Attestation: For traditional Medicare patients the provided hospital inpatient services are reasonable and necessary and in the case of services not specified as inpatient -only under 42 CFR 419.22 (n), that they are appropriately provided as inpatient services in accordance 42 CFR 412.3. For Critical Access Hospital the patient may reasonably be expected to be discharged or transferred to a hospital within 96 hours after admission to the Critical Access Hospital. Admitted From: Intrahospital Transfer Plans for Post Hospital Care: Home History of Present Illness: Pt is a 37 yo, , female, never , with 2 children (18 with sister ,6 with CPS) who presents for bipolar Depression and alcohol use D/O severe to the emergency department. Pt continues to not a hisotry of bipolar Deprssion with suicidal ideations. Pt noted additionally she has been drinking 1 liter of vodka per day for the past 2 years. Pt noted she attempted to sober up 6 months ago and had a seizure. Pt noted "It has been very hard to sober up." Pt noted she felt safe and comfortable on the unit. Pt was in agreement with treatment plan. Pt noted that she is doing better today. Pt noted she slept "about 4 hours broken last night. Pt noted her appetite is reduced. Pt rated her depression a 10, on a scale of zero to ten with ten being the worst and zero being none. Pt rate her anxiety a 10, on the same scale. Pt denied any current visual or auditory hallucinations. Pt denied any thoughts to harm herself or anyone else. PT agreed to increase lurasidone for medication management of Bipolar D/O. Pt was educated on the risks benefits and side-effects of these medications including no medication, pt was in agreement. 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 Pt denied any hx of HIV or Hep C. No TD noted, AIMS=0 Tobacco: 1ppd Alcohol: she has been drinking 1 liter of vodka per day for the past [address]: occasional marijuana use Caffeine: Denies 1.Interval hx 2.Continue current medications 3.Review current labs 4.Pt had an opportunity to ask questions and discuss current treatment plan. 5.Supportive therapy was provided 6.Pt encouraged to consider group or individual therapy 7.Pt was in agreement with treatment plan. 8.Pt was educated on the risks benefits and side effects of current medications. 9. increase lurasidone to 80 mg PO QAM for mood 10. Continue to taper pt off lorzepam and alcohol Past Med Surg Social Fam HX - Past Medical History Medical history: hyperlipidemia, hypertension - Past Psychiatric History Psychiatric history: Reports: bipolar, depression, prior suicide attempt, previous psychiatric hospitalization Family psychiatric history: Yes Family History of Suicide: None - Past Surgical History Surgical History: other - Social History Smoking Status: Current every day smoker Smokeless Tobacco Status: No Alcohol use: recent Drug use: marijuana, prescription drug abuse - Family History Maternal Grandmother Family Member Ethnicity: Non- Living Status: Hx Family Cancer: Yes (Throat cancer) Medications & Allergies Folic Acid 1 mg PO DAILY tablet 05/20/18 [Rx] Haloperidol [Haldol] 5 mg PO Q6H PRN tablet 05/20/18 [Rx] Lurasidone HCl [Latuda] 80 mg PO DAILY 05/20/18 [History] Melatonin 3 mg PO HS PRN tablet 05/20/18 [Rx] Nicotine Patch [Nicoderm] 14 mg TD DAILY patch.td24 05/20/18 [Rx] Thiamine (B-1) [Vitamin B-1] 100 mg PO DAILY tablet 05/20/18 [Rx] Vitamin B Complex/Vit C/Vit E [Stresstab] 1 each PO DAILY 05/20/18 [History] amLODIPine [Norvasc] 10 mg PO DAILY tablet 05/20/18 [Rx] 3 Allergy/AdvReac Type Severity Reaction Status Date / Time ibuprofen [From Motrin] Allergy Swelling Verified 05/13/18 22:18 of Lip/Tongue/Throat Review of Systems Constitutional: Denies: fever, chills, weakness, weight change Eyes: Denies: eye pain, vision change Ears, Nose, Throat: Denies: ear pain, throat pain, dental pain, hearing loss, congestion Cardiovascular: Denies: chest pain, palpitations, dyspnea on exertion Respiratory: Denies: cough, dyspnea, wheezes Gastrointestinal: Denies: abdominal pain, nausea, vomiting, diarrhea, constipation Genitourinary female: Denies: urgency, dysuria, frequency, abnormal menses, dyspareunia Musculoskeletal: Denies: joint swelling, joint pain Integumentary: Denies: rash, lesions, pruritus Neurological: Denies: headache, weakness, numbness, memory loss Psychiatric: Reports: depression, abnormal sleep pattern, anhedonia Endocrine: Denies: fatigue, heat or cold intolerance Hematologic/Lymphatic: Denies: easy bruising, lymphadenopathy Allergic/Immunologic: Denies: urticaria, itchy eyes Exam - HEENT Head exam IM: Present: atraumatic Eye exam IM: Present: EOMI, normal appearance, PERRL ENT exam IM: Present: normal exam - Neurological Neurological exam: Present: CN II-XII intact - Respiratory Respiratory exam IM: Present: CTAB - GI/Abdominal GI/Abdominal exam IM: Present: normal bowel sounds, soft. Absent: tenderness - Extremities Extremities exam IM: Present: full ROM - Skin Skin exam IM: Present: dry, warm - Constitutional Vitals: Temp Pulse Resp BP 98.2 F 111 20 129/99 05/20/18 14:08 05/20/18 14:08 05/20/18 14:08 05/20/18 14:08 General appearance: age & developmentally appropriate, well-groomed, well- nourished - Musculoskeletal Gait: normal Station: relaxed Strength & Tone: normal for patient - Psychiatric Patient Orientation: Yes Person, Yes Time, Yes Place Level of alertness: Alert Behavior: calm, cooperative, anxious Psychomotor activity: Increased Eye Contact: Maintains Eye Contact Mood Description: Euthymic/stable, Depressed, Anxious Affect description: congruent with mood, full range Speech Volume: Normal Speech pattern: normal rate, normal rhythm, normal tone, fluent, spontaneous Language & Vocabulary: consistent with education Thought Process: Linear, Goal Oriented Thought Content: Yes Suicidal ideation, No Homicidal ideation, No Overt delusions Perceptual Disturbances: No Auditory hallucinations, No Visual hallucinations Attention Span Ability: Capable of Focused Attention Memory Description: Grossly Intact Patient Reliability: Reliable Historian Fund of knowledge: Yes abstraction ability, Yes average, Yes aware of current events Intelligence Estimate: Average Judgment: Limited Insight: Partial Assessment and Plan (1) Suicidal ideation Current visit: No Status: Acute Plan: Admit inpatient for safety and stabilization, Close observation, Suicide Precautions per unit protocol, Encourage participation in unit milieu, Group Therapy, Monitor sleep, Monitor appetite Risks, benefits, side effects, alternatives discussed w/pt: Yes Patient agreeable to treatment: Yes Plans for Post Hospital Care: Home (2) Polysubstance (excluding opioids) dependence Current visit: No Status: Acute Plan: Admit inpatient for safety and stabilization, Close observation, Suicide Precautions per unit protocol, Encourage participation in unit milieu, Group Therapy, Monitor sleep, Monitor appetite Risks, benefits, side effects, alternatives discussed w/pt: Yes Patient agreeable to treatment: Yes Plans for Post Hospital Care: Home (3) MDD (major depressive disorder), recurrent episode, severe Current visit: No Status: Chronic Plan: Admit inpatient for safety and stabilization, Close observation, Suicide Precautions per unit protocol, Encourage participation in unit milieu, Group Therapy, Monitor sleep, Monitor appetite Risks, benefits, side effects, alternatives discussed w/pt: Yes Patient agreeable to treatment: Yes Plans for Post Hospital Care: Home Qualifiers: Psychotic features: without psychotic features Qualified Code(s): F33.2 - Major depressive disorder, recurrent severe without psychotic features (4) Anxiety Current visit: No Status: Chronic Plan: Admit inpatient for safety and stabilization, Close observation, Suicide Precautions per unit protocol, Encourage participation in unit milieu, Group Therapy, Monitor sleep, Monitor appetite Risks, benefits, side effects, alternatives discussed w/pt: Yes Patient agreeable to treatment: Yes Plans for Post Hospital Care: Home
[2018-05-20] MEDS ORDERED: hydrOXYzine pamoate 25 MG CAPSULE PO PRN (19:16)
[2018-05-21] MEDS: *HR* LORazepam 0.5 MG TABLET PO SCH ×2 (08:46→13:03)
[2018-05-21] MEDS: Nicotine 14 MG PATCH.TD24 TD SCH (08:48)
[2018-05-21] MEDS ORDERED: Folic Acid 1 MG TABLET PO SCH (09:00)
[2018-05-21] MEDS ORDERED: Thiamine (B-1) 100 MG TABLET PO SCH (09:00)
[2018-05-21] MEDS ORDERED: Vitamin B Complex/Vit C/Vit E 1 EACH TABLET PO SCH (09:00)
[2018-05-21] MEDS ORDERED: *HR* LORazepam 0.5 MG TABLET PO SCH (09:00)
[2018-05-21] MEDS ORDERED: Lurasidone 20 MG TABLET PO SCH (09:00)
[2018-05-21] MEDS ORDERED: amLODIPine 5 MG TABLET PO SCH (09:00)
[2018-05-21] MEDS ORDERED: BuPROPion XL (24 HR) 150 MG TABLET PO SCH (09:00)
[2018-05-21 09:13] VITALS: BP 130/100
[2018-05-21] MEDS: Acetaminophen 325 MG TABLET PO PRN (11:05)
--- NOTE | 2018-05-21 14:44 | Discharge Summary ---
Date of Encounter: 05/21/18 Time of Encounter: 14:00 Diagnosis - Discharge Diagnosis (1) Suicidal ideation Status: Acute (2) Polysubstance (excluding opioids) dependence Status: Acute (3) MDD (major depressive disorder), recurrent episode, severe Status: Chronic Qualifiers: Psychotic features: without psychotic features Qualified Code(s): F33.2 - Major depressive disorder, recurrent severe without psychotic features (4) Anxiety Status: Chronic Medications - Discharge Medications Prescriptions: amLODIPine [Norvasc] 10 mg PO DAILY #30 tablet BuPROPion XL (24 HR) [Wellbutrin Xl] 150 mg PO DAILY #30 tab.er.24h Buspirone HCl [Buspar] 10 mg PO BID #60 tablet Folic Acid 1 mg PO DAILY #30 tablet hydrOXYzine pamoate [HydrOXYzine Pamoate] 50 mg PO Q6H PRN 30 Days #30 capsule PRN Reason: Anxiety LORazepam [Ativan] 0.5 mg PO BID 2 Days #3 tablet Thiamine (B-1) [Vitamin B-1] 100 mg PO DAILY #30 tablet Vitamin B Complex/Vit C/Vit E [Stresstab] 1 each PO DAILY #30 tablet Melatonin 3 mg PO HS PRN tablet 05/20/18 [Rx] BuPROPion XL (24 HR) [Wellbutrin Xl] 150 mg PO DAILY #30 tab.er.24h 05/21/18 [Rx ] Buspirone HCl [Buspar] 10 mg PO BID #60 tablet 05/21/18 [Rx] Folic Acid 1 mg PO DAILY #30 tablet 05/21/18 [Rx] LORazepam [Ativan] 0.5 mg PO BID 2 Days #3 tablet 05/21/18 [Rx] Thiamine (B-1) [Vitamin B-1] 100 mg PO DAILY #30 tablet 05/21/18 [Rx] Vitamin B Complex/Vit C/Vit E [Stresstab] 1 each PO DAILY #30 tablet 05/21/18 [ Rx] amLODIPine [Norvasc] 10 mg PO DAILY #30 tablet 05/21/18 [Rx] hydrOXYzine pamoate [HydrOXYzine Pamoate] 50 mg PO Q6H PRN 30 Days #30 capsule 05/21/18 [Rx] 3 Allergy/AdvReac Type Severity Reaction Status Date / Time ibuprofen [From Motrin] Allergy Swelling Verified 05/13/18 22:18 of Lip/Tongue/Throat Provider Date of admission: 05/20/18 11:17 Primary care physician: PCP NONE Discharging clinician: Richard Kaur Psychiatry Exam - Constitutional Vitals: Temp Pulse Resp BP Pulse Ox 98.0 F 99 18 130/100 98 05/21/18 09:00 05/21/18 09:00 05/21/18 09:00 05/21/18 09:00 05/20/18 19:57 General appearance: age & developmentally appropriate, well-groomed, well- nourished - Musculoskeletal Gait: normal Station: relaxed Strength & Tone: normal for patient - Psychiatric Patient Orientation: Yes Person, Yes Time, Yes Place Level of alertness: Alert Behavior: calm, cooperative Psychomotor activity: Normal Eye Contact: Maintains Eye Contact Mood Description: Euthymic/stable Affect description: congruent with mood, full range Speech Volume: Normal Speech pattern: normal rate, normal rhythm, normal tone, fluent, spontaneous Language & Vocabulary: consistent with education Thought Process: Linear, Goal Oriented Thought Content: No Suicidal ideation, No Homicidal ideation, No Overt delusions Perceptual Disturbances: No Auditory hallucinations, No Visual hallucinations Attention Span Ability: Capable of Focused Attention Memory Description: Grossly Intact Patient Reliability: Reliable Historian Fund of knowledge: Yes abstraction ability, Yes aware of current events Intelligence Estimate: Average Judgment: Limited Insight: Partial Hospital Course Hospital course: Patient noted a significant reeducation in his depression and anxiety during her stay at [facility]. Pt noted that she slowly improved to the point that he was comfortable and safe to D/C home. Pt noted she felt ers medications were working well and denied any current side effects. Treatment team encouraged Pt to stay out of bed and try to find activities to do, verbalized understanding. pt reported that she felt safe on the unit and comfortable for Home with her mother. Pt Denied suicidal/homicidal ideations, denied any problems or concerns with medications or side effects. PT voiced progression towards treatment goals and was offered a copy of updated treatment plan completed during visit today. Denied any immediate needs or concerns. Pt denied any access to guns or weapons Pt throughout her stay on in psych pt felt like his medications were working and felt comfortable being discharged on these medications. Pt was advised to take all medications as prescribed, follow up with all scheduled appointments and abstain from any alcohol or illicit substances. Pt was in agreement. Pt felt safe and comfortable to be discharged to her home and follow up with outpt substance abuse and mental health at [facility]. Pt was very optimistic about her D/C. Pt felt safe and comfortable for D/C. Pt stated that he was doing "good," today. Pt stated that she slept "about 8 hours," last night. Pt stated that her appetite is "good." Pt stated that she rates her depression a "0," on a scale of 0-10 with 10 being the worst and 0 being none. Pt stated that she rates her anxiety an "0/10," on the same scale. Pt denies any auditory or visual hallucinations. Pt denied any thoughts to harm herself or anyone else. Pt felt safe and comfortable for D/C. The patient was educated primarily by verbal means about her diagnoses and their manifestations in her life. The option for treatment including group individual therapy programming was offered to her and the use of medications with all their potential risks, benefits, and side-effects were discussed with the pt at length. Pt was given the opportunity to ask questions and she participated in the treatment and planning process. Pt felt ready and eager to be discharged from the from the 1A unit to be dishcarged home. Pt felt he was safe for this disposition. Pt was considered to be able to participate in informed consent and decision-making with respect to medical, legal and financial issues at the time of her discharge from the Center. Pt is a 37 yo, , female, never , with 2 children (18 with sister ,6 with CPS) who presents for Depression and alcohol use D/O severe to the emergency department. Pt continues to not a hisotry of bipolar Deprssion with suicidal ideations. Pt noted additionally she has been drinking 1 liter of vodka per day for the past 2 years. Pt noted she attempted to sober up 6 months ago and had a seizure. 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 Pt denied any hx of HIV or Hep C. No TD noted, AIMS=0 Tobacco: 1ppd Alcohol: she has been drinking 1 liter of vodka per day for the past [address]: occasional marijuana use Caffeine: Denies 1.Interval hx 2.Continue current medications 3.Review current labs 4.Pt had an opportunity to ask questions and discuss current treatment plan. 5.Supportive therapy was provided 6.Pt encouraged to consider group or individual therapy 7.Pt was in agreement with treatment plan. 8.Pt was educated on the risks benefits and side effects of current medications. 9. take all medications as prescribed 10 abstain from any alcohol or illict substances. 11. follow up with all sheduled appointments. 12. D/C Pt home 13. Pt is to follow up with [facility] for outpt substance abuse treatment programming and mental health follow up. 14. Pt was educated on 90 meetings in 90 days and finding a sponsor. Time spent discussing smoking cessation with patient: 3 to 10 minutes Does patient wish to continue nicotine replacement upon disc: No - Time Spent with Patient Total time spent providing and/or coordinating discharge services: Greater than 30 minutes Assessment and Plan - Patient/Caregiver Discharge Instructions Activity: resume usual activities as tolerated Diet: regular diet - Follow up Plan Follow up with: Ede Mack [Outside] - 05/22/18 1:00 pm ( You will resume AOD group with Malinda Tay on Mondays from 2:30pm - 4:00pm and Fridays from 1:00pm - 2: 00pm. Please see Malinda Tay for an appointment for your individual counseling session at your Friday meeting on May 22 2018 at 1:00pm.) [facility] [Outside] - 06/05/18 11:00 am (The above appointment is with Betty Sharif for outpatient psychiatric assessment and medication management services. Please arrive 30 minutes early to complete paperwork. Please bring your photo ID (bring proof of address if you do not have an ID) and medication list. The above appointment(s) reflects first availability. You may contact the office regularly to check for cancellations that may allow you to be seen sooner. ) Liane Bruner [Advanced Practice Nurse] - 06/23/18 1:00 pm ( The above appointment is with Liane Bruner for primary care/medications. Please bring photo ID, insurance card and *arrive 20 minutes before your appointment. ) Overall status at discharge: Stable Disposition: Home, Self-Care Quality - Multiple Antipsychotics Patient discharged on 2 or more antipsychotic medications: No - Justification Documentation of: Other justification (Pt is not being discharged on antipsychotic) Procedures - Procedures Procedures: Medication Management, Crisis Stabilization, Supportive Therapy, Group Therapy, Psychoeducational Therapy
== END 2018-05-21 15:45 | disposition home or self-care (01) | DRG 885 ==
LOC: 1ANU 11:17
PROVIDERS: ADMIT General Practice; ATTEND General Practice

== ENCOUNTER 2018-12-06 00:03 | Inpatient (IN) ==
[2018-12-06] MEDS ORDERED: *HR* LORazepam 2 MG/ML VIAL IM ONE (00:11)
[2018-12-06] MEDS ORDERED: Haloperidol Lactate 5 MG/ML VIAL IM ONE (00:11)
[2018-12-06] MEDS ORDERED: 0.9 % Sodium Chloride 1,000 ML IVC ONE (00:12)
--- NOTE | 2018-12-06 00:17 | Emergency Department Note ---
Disposition Clinical Impression: Substance abuse, Hypokalemia, Mass of right lung Altered mental status Qualifiers: Altered mental status type: unspecified Qualified Code(s): R41.82 - Altered mental status, unspecified Disposition: Admitted As Inpatient Condition: Fair Time of Disposition: 01:58 General Adult HPI - General Chief complaint: ED General Medical Stated complaint: Meth and the wiggles Time Seen by Provider: 12/06/18 00:11 Source: patient, EMS Mode of arrival: EMS Limitations: other Nursing Notes Reviewed: Yes Vital Signs Reviewed: Yes - History of Present Illness HPI Narrative: 38-year-old female with known substance abuse disorder presents from assisted for concerns of altered mental status. Patient is a known to use alcohol as well as methamphetamine. EMS reported the patient was in a 12 hour holding cell to assisted when she became more and more altered. EMS reported the patient was stating that she used every drug she could a couple days ago. Patient specifically admits to using methamphetamine. EMS reported the patient has been verbalizing that someone is stalking her. Patient denies any pain. Complete review systems cannot be completed patient's mental status. - Related Data Previous Rx's Medication Instructions Recorded Folic Acid 1 mg PO DAILY tablet 11/06/18 Thiamine (B-1) [Vitamin B-1] 100 mg PO DAILY tablet 11/06/18 Lurasidone [Latuda] 20 mg PO DAILY 30 Days #30 tablet 11/12/18 Allergies Allergy/AdvReac Type Severity Reaction Status Date / Time ibuprofen [From Motrin] Allergy Swelling Verified 12/06/18 00:10 of Lip/Tongue/Throat Limitations: ROS unobtainable due to patients medical condition Past Medical History - Past Medical History Source: patient, old records reviewed Medical history: Reports: hyperlipidemia, hypertension Surgical history: Reports: other Psychiatric history: Reports: bipolar, depression, prior suicide attempt, previous psychiatric hospitalization BLIND HOOKER history: Reports: no BLIND HOOKER history, bilateral tubal ligation - Social History Smoking Status: Current every day smoker Smokeless Tobacco Status: No Alcohol use: Reports: heavy, recent Drug use: Reports: marijuana, methamphetamine, IV Drug Use, prescription drug abuse Physical Exam - General Limitations: other General appearance: alert - Head Head exam: atraumatic, normal inspection - Eye Eye exam: Present: normal appearance, PERRL, EOMI. Absent: miosis, mydriasis - ENT ENT exam: normal exam - Neck Neck exam: Present: normal inspection - Chest Chest inspection: Present: normal inspection, symmetric chest wall rise - Respiratory Respiratory exam: Absent: respiratory distress, accessory muscle use - Cardiovascular Cardiovascular exam: Present: normal rhythm, tachycardia. Absent: systolic murmur - Abdominal Exam Abdominal exam: Present: soft, Non-Tender - Extremities Exam Extremities exam: Present: other (Aged bruising and track coy on bilateral arms.) - Expanded Lower Extremity Exam Neurovascular/Tendon exam: Present: normal capillary refill - Back Exam Back exam: Present: normal inspection - Neurological Exam Neurological exam: Present: alert, CN II-XII intact, other (Moving all extremities.) - Expanded Neurological Exam Patient oriented to: Present: person, place, time Speech: Present: fluid speech (Tangential) Motor strength - LUE: 5/5 Motor strength - RUE: 5/5 Motor strength - LLE: 5/5 Motor strength - RLE: 5/5 Coma Scale Eye Opening: Spontaneous Coma Scale Motor Response: Obeys Commands Coma Scale Verbal Response: Confused Coma Scale Total: 14 - Psychiatric Psychiatric exam: Present: anxious, other (Tangential speech, appears paranoid) - Skin Skin exam: Present: warm, dry, intact, normal color. Absent: rash Course Course Narrative: Patient appears to be no the influence of substances. Concerns for math and bowel salts. Patient will get calming agents as well as basic labs EKG chest x-ray. There are no gross evidence of any head trauma CT imaging of the head will not be obtained. Patient will likely require admission for her altered mental status with eventual psychiatric consultation once medically cleared. - Reevaluation(s) Reevaluation #1: Patient's been resting currently in the ED. Patient did require calming agents initially upon presentation due to her excited delirium. Patient had a GCS of 14 due to some confusion however the patient was alert to person and time and place however the patient was not allergic to situation. Time: 01:57 Reevaluation #2: Repeat glucose was improved in the 130s. Time: 02:54 Reevaluation #3: Patient continues to be resting comfortably in no acute distress. Time: 03:14 Vital Signs Temperature 99.1 F 12/06/18 00:10 Pulse Rate 60 12/06/18 00:10 Respiratory Rate 19 12/06/18 00:10 Blood Pressure 110/93 12/06/18 00:10 O2 Sat by Pulse Oximetry 95 12/06/18 00:10 Temperature 99.1 F 12/06/18 00:10 Pulse Rate 60 12/06/18 00:10 Respiratory Rate 19 12/06/18 00:10 Blood Pressure 110/93 12/06/18 00:10 O2 Sat by Pulse Oximetry 95 12/06/18 00:10 Oxygen Delivery Oxygen Delivery Room Air Medical Decision Making - MDM Narrative Medical decision making narrative: 38-year-old female known history about pleasant, sepsis abuse presents for evaluation of possible substance abuse. Patient presented via EMS. On arrival the patient's controlling her airway does appear to have a GCS of 14 with some excited delirium. Patient's able to answer appropriately month, place, person of the patient was not oriented to situation. Patient was making exclamations about someone stalking her and concerns for paranoia. Patient required several calling agents after verbal de-escalation was unsuccessful. Patient was pink slip due to her mentation concerns that she could not care for self. Does have prior history of psychiatric hospitalization. Patient initial concerns for Withdrawal versus abuse with amphetamines. Urine drug screens positive for amphetamines. Patient's symptoms are not consistent with encephalitis or inf ectious cause. Patient's electrolytes were repleted. Patient will likely need medical admission and later psychiatric evaluation. Patient did not initially get any neuroimaging given there are no external signs of trauma on her head. - Lab Data Lab results reviewed: Yes I reviewed the patient's lab results. Result diagrams: 12/06/18 00:53 12/06/18 00:53 Lab Results 12/06/18 12/06/18 12/06/18 Range/Units 00:53 00:53 01:10 WBC 12.7 H (4.3-11.1) K/mcL RBC 4.63 (3.82-4.97) M/mcL Hgb 14.1 (11.5-15.4) g/dL Hct 41.5 (35.3-44.9) % MCV 89.6 (83.0-100.0) fL MCH 30.5 (28.0-33.3) pg MCHC 34.0 (31.6-35.5) g/dL RDW 12.3 (11.5-14.5) % Plt Count 265 (140-400) K/mcL MPV 9.3 L (9.4-12.4) fL Immature Gran % 0.2 (0-4) % Seg Neutrophils % 71.2 % Lymphocytes % 15.6 % Monocytes % 11.9 % Eosinophils % 0.6 % Basophils % 0.5 % Neutrophils # 9.0 H (1.6-8.9) K/mcL Lymphocytes # 2.0 (0.6-4.6) K/mcL Monocytes # 1.5 H (0.0-1.3) K/mcL Eosinophils # 0.1 (0.0-0.6) K/mcL Basophils # 0.1 (0.0-0.2) K/mcL Sodium 132 L (136-145) mEq/L Potassium 3.1 L (3.5-5.1) mEq/L Chloride 94 L (98-107) mEq/L Carbon Dioxide 20 L (23-29) mEq/L BUN 29 H (6-20) mg/dL Creatinine 1.18 (0.60-1.20) mg/dL Est GFR ( Amer) > 60 (> 60) Est GFR (Non-Af Amer) 51 L (> 60) BUN/Creatinine Ratio 25 (6-26) Glucose 53 L (70-105) mg/dL Calculated Osmolality 277 L (280-300) Calcium 9.4 (8.6-10.3) mg/dL Phosphorus 4.0 (2.7-4.5) mg/dL Magnesium 2.2 (1.6-2.6) mg/dL Total Bilirubin 1.2 H (0.3-1.0) mg/dL Direct Bilirubin 0.2 (0.0-0.2) mg/dL Indirect Bilirubin 1.0 (0.0-1.2) mg/dL AST 55 H (13-39) Units/L ALT 27 (7-52) Units/L Alkaline Phosphatase 73 (34-104) Units/L Serum Total Protein 7.9 (6.4-8.9) g/dL Albumin 4.5 (3.5-5.7) g/dL Globulin 3.4 (2.4-3.5) g/dL Albumin/Globulin Ratio 1.3 (1.1-2.2) Urine Color Dark Yellow (Yellow) Urine Clarity Cloudy A (Clear) Urine pH 5.0 (5.0-8.0) pH Units Ur Specific [place] 1.021 (1.010-1.025) Urine Protein 100 H (Neg-Trace) mg/dL Urine Glucose (UA) Normal (Normal) mg/dL Urine Ketones 15 H (Negative) mg/dL Urine Blood Large H (Negative) Urine Nitrite Negative (Negative) Urine Bilirubin Small H (Negative) Urine Urobilinogen Normal (Normal) mg/dL Ur Leukocyte Esterase Negative (Negative) Urine Microscopic RBC 5-15 H (0-3) per hpf Urine Microscopic WBC 5-15 H (0-3) per hpf Ur Squamous Epith Cells Many H (None-Few) per lpf Urine Bacteria Moderate H (None-Few) per hpf Hyaline Casts Moderate H (None-Few) per lpf Ur Culture Indicated? NO (NO) Urine Test (Negative) Urine Opiates Screen (Nwwbhr=342) ng/mL Ur Barbiturates Screen (Mqihdx=020) ng/mL Ur Phencyclidine Scrn (Cutoff=25) ng/mL Ur Amphetamines Screen (Pegcuz=4446) ng/mL U Benzodiazepines Scrn (Jrpbeu=312) ng/mL Urine Cocaine Screen (Cutoff= 300) ng/mL U Marijuana (THC) Screen (Cutoff = 50) ng/mL Ur Drug Screen Interp Ethyl Alcohol < 10 (Less than 10) mg/dL 12/06/18 12/06/18 Range/Units 01:10 01:10 WBC (4.3-11.1) K/mcL RBC (3.82-4.97) M/mcL Hgb (11.5-15.4) g/dL Hct (35.3-44.9) % MCV (83.0-100.0) fL MCH (28.0-33.3) pg MCHC (31.6-35.5) g/dL RDW (11.5-14.5) % Plt Count (140-400) K/mcL MPV (9.4-12.4) fL Immature Gran % (0-4) % Seg Neutrophils % % Lymphocytes % % Monocytes % % Eosinophils % % Basophils % % Neutrophils # (1.6-8.9) K/mcL Lymphocytes # (0.6-4.6) K/mcL Monocytes # (0.0-1.3) K/mcL Eosinophils # (0.0-0.6) K/mcL Basophils # (0.0-0.2) K/mcL Sodium (136-145) mEq/L Potassium (3.5-5.1) mEq/L Chloride (98-107) mEq/L Carbon Dioxide (23-29) mEq/L BUN (6-20) mg/dL Creatinine (0.60-1.20) mg/dL Est GFR ( Amer) (> 60) Est GFR (Non-Af Amer) (> 60) BUN/Creatinine Ratio (6-26) Glucose (70-105) mg/dL Calculated Osmolality (280-300) Calcium (8.6-10.3) mg/dL Phosphorus (2.7-4.5) mg/dL Magnesium (1.6-2.6) mg/dL Total Bilirubin (0.3-1.0) mg/dL Direct Bilirubin (0.0-0.2) mg/dL Indirect Bilirubin (0.0-1.2) mg/dL AST (13-39) Units/L ALT (7-52) Units/L Alkaline Phosphatase (34-104) Units/L Serum Total Protein (6.4-8.9) g/dL Albumin (3.5-5.7) g/dL Globulin (2.4-3.5) g/dL Albumin/Globulin Ratio (1.1-2.2) Urine Color (Yellow) Urine Clarity (Clear) Urine pH (5.0-8.0) pH Units Ur Specific [place] (1.010-1.025) Urine Protein (Neg-Trace) mg/dL Urine Glucose (UA) (Normal) mg/dL Urine Ketones (Negative) mg/dL Urine Blood (Negative) Urine Nitrite (Negative) Urine Bilirubin (Negative) Urine Urobilinogen (Normal) mg/dL Ur Leukocyte Esterase (Negative) Urine Microscopic RBC (0-3) per hpf Urine Microscopic WBC (0-3) per hpf Ur Squamous Epith Cells (None-Few) per lpf Urine Bacteria (None-Few) per hpf Hyaline Casts (None-Few) per lpf Ur Culture Indicated? (NO) Urine Test Negative (Negative) Urine Opiates Screen Negative (Gkkfpq=449) ng/mL Ur Barbiturates Screen Negative (Pgutvb=954) ng/mL Ur Phencyclidine Scrn Negative (Cutoff=25) ng/mL Ur Amphetamines Screen Positive H (Cxcjgi=2326) ng/mL U Benzodiazepines Scrn Negative (Qlfymd=659) ng/mL Urine Cocaine Screen Negative (Cutoff= 300) ng/mL U Marijuana (THC) Screen Positive H (Cutoff = 50) ng/mL Ur Drug Screen Interp See Below Ethyl Alcohol (Less than 10) mg/dL - Radiology Data Radiology results reviewed: Yes I reviewed the patient's radiology results. Chest X-Ray 12/06/18 00:12 IMPRESSION: New right apical lung opacity since 10/10/2018. Recommend further evaluation with contrast-enhanced CT chest. D/ / John Vega / John Vgea Interpreting Provider: John Vega - EKG Data EKG #1 EKG attestation: Yes I reviewed and interpreted this EKG. EKG shows normal: sinus rhythm Rate: normal Rhythm: NSR [place]/QRS: normal P waves: other (Inverted V1) QTc: other (490) When compared to previous EKG there are: no significant changes Interpretation: no acute changes S.B.A.RAllyssa - S.B.AJohnathan Situation: Demographics Background: Presenting Complaint Assessment: Vital Signs, Course and respsone to treatment, Patient/Family Expectation Recommendation: Barrier(s) to disposition, Recommendation based on pending studies, treatments, or consults S.B.A.RAllyssa Report Given to: Dr. Дмитрий Key Repor Time: 03:14
[2018-12-06 01:03] LABS: Basophils # 0.1 K/mcL (0.0-0.2); Basophils % 0.5 %; Eosinophils # 0.1 K/mcL (0.0-0.6); Eosinophils % 0.6 %; Hematocrit 41.5 % (35.3-44.9); Hemoglobin 14.1 g/dL (11.5-15.4); Immature Granulocytes % 0.2 % (0-4); Lymphocytes % 15.6 %; Mean Corpuscular Hemoglobin 30.5 pg (28.0-33.3); Mean Corpuscular Volume 89.6 fL (83.0-100.0); Mean Platelet Volume 9.3 fL (9.4-12.4); Monocytes # 1.5 K/mcL (0.0-1.3); Monocytes % 11.9 %; Platelet Count 265 K/mcL (140-400); Red Blood Count 4.63 M/mcL (3.82-4.97); Red Cell Distribution Width 12.3 % (11.5-14.5); Segmented Neutrophils % 71.2 %
[2018-12-06 01:26] LABS: Alanine Aminotransferase 27 Units/L (7-52); Albumin 4.5 g/dL (3.5-5.7); Albumin/Globulin Ratio 1.3 (1.1-2.2); Alkaline Phosphatase 73 Units/L (34-104); Aspartate Amino Transferase 55 Units/L (13-39); BUN/Creatinine Ratio 25 (6-26); Bilirubin,Direct 0.2 mg/dL (0.0-0.2); Bilirubin,Total 1.2 mg/dL (0.3-1.0); Blood Urea Nitrogen 29 mg/dL (6-20); Calcium 9.4 mg/dL (8.6-10.3); Carbon Dioxide 20 mEq/L (23-29); Chloride 94 mEq/L (98-107); Ethanol < 10 mg/dL (Less than 10); Globulin 3.4 g/dL (2.4-3.5); Glucose 53 mg/dL (70-105); Magnesium 2.2 mg/dL (1.6-2.6); Osmolality,Calculated 277 (280-300); Potassium 3.1 mEq/L (3.5-5.1); Sodium 132 mEq/L (136-145); Total Protein 7.9 g/dL (6.4-8.9); eGFR For Non-African Americans 51 (> 60)
[2018-12-06] MEDS ORDERED: Thiamine (B-1) 100 MG, Folic Acid 1 MG, MVI, adult with vitamin K 10 ML in 0.9 % Sodi... IVPB ONE (01:27)
[2018-12-06] MEDS ORDERED: *HR* Dextrose 50 % in Water (Syg) 50 ML SYRINGE IVP ONE (01:32)
[2018-12-06] MEDS ORDERED: Potassium Chloride 20 MEQ, Lidocaine 1% 2 ML in D5% in Water 250 ML IVPB ONE (01:33)
[2018-12-06 01:37] LABS: Bilirubin,Urine Small (Negative); Blood,Urine Large (Negative); Clarity,Urine Cloudy (Clear); Color,Urine Dark Yellow (Yellow); Glucose,Urine (UA) Normal (Normal); Ketones,Urine 15 mg/dL (Negative); Leukocyte Esterase,Urine Negative (Negative); Nitrite,Urine Negative (Negative); Protein,Urine 100 mg/dL (Neg-Trace); Specific Gravity,Urine 1.021 (1.010-1.025); Urobilinogen,Urine Normal (Normal)
[2018-12-06 01:40] LABS: Squamous Epithelial Cell,Urine Many per lpf (None-Few)
[2018-12-06 01:48] LABS: Amphetamine Screen,Urine Positive ng/mL (Cutoff=1000); Barbiturate Screen,Urine Negative ng/mL (Cutoff=200); Benzodiazepines Screen,Urine Negative ng/mL (Cutoff=200); Cannabinoid Screen,Urine Positive ng/mL (Cutoff = 50); Cocaine Screen,Urine Negative ng/mL (Cutoff= 300); Opiate Screen,Urine Negative ng/mL (Cutoff=300); Phencyclidine Screen,Urine Negative ng/mL (Cutoff=25)
[2018-12-06 01:59] LABS: Bacteria,Urine Moderate per hpf (None-Few); Hyaline Casts,Urine Moderate per lpf (None-Few)
[2018-12-06] MEDS ORDERED: Naloxone 0.4 MG/ML INJ IVP PRN (03:44)
[2018-12-06] MEDS ORDERED: 0.9 % Sodium Chloride 1,000 ML IVC SCH (03:45)
[2018-12-06] MEDS ORDERED: Isovue-370 500 ML INFUS..BTL IV ONE (04:10)
--- NOTE | 2018-12-06 04:14 | Emergency Department Note ---
Disposition Clinical Impression: Substance abuse, Hypokalemia, Mass of right lung Altered mental status Qualifiers: Altered mental status type: unspecified Qualified Code(s): R41.82 - Altered mental status, unspecified Disposition: Admitted As Inpatient Condition: Fair General Adult HPI - General Chief complaint: ED General Medical Stated complaint: Meth and the wiggles Time Seen by Provider: 12/06/18 00:11 Source: patient, EMS Mode of arrival: EMS Limitations: other Nursing Notes Reviewed: Yes Vital Signs Reviewed: Yes - History of Present Illness Pain Scale: 0 - Related Data Previous Rx's Medication Instructions Recorded Folic Acid 1 mg PO DAILY tablet 11/06/18 Thiamine (B-1) [Vitamin B-1] 100 mg PO DAILY tablet 11/06/18 Lurasidone [Latuda] 20 mg PO DAILY 30 Days #30 tablet 11/12/18 Allergies Allergy/AdvReac Type Severity Reaction Status Date / Time ibuprofen [From Motrin] Allergy Swelling Verified 12/06/18 00:10 of Lip/Tongue/Throat Past Medical History - Past Medical History Medical history: Reports: hyperlipidemia, hypertension Surgical history: Reports: other Psychiatric history: Reports: bipolar, depression, prior suicide attempt, previous psychiatric hospitalization WOOD DIE MAKER history: Reports: no WOOD DIE MAKER history, bilateral tubal ligation - Social History Smoking Status: Current every day smoker Smokeless Tobacco Status: No Alcohol use: Reports: heavy, recent Drug use: Reports: marijuana, methamphetamine, IV Drug Use, prescription drug abuse Physical Exam - General Limitations: other General appearance: alert Course Vital Signs Temperature 99.1 F 12/06/18 00:10 Pulse Rate 60 12/06/18 00:10 Respiratory Rate 19 12/06/18 00:10 Blood Pressure 110/93 12/06/18 00:10 O2 Sat by Pulse Oximetry 95 12/06/18 00:10 Temperature 99.1 F 12/06/18 00:10 Pulse Rate 77 12/06/18 03:23 Respiratory Rate 17 12/06/18 03:23 Blood Pressure 116/85 12/06/18 03:23 O2 Sat by Pulse Oximetry 99 12/06/18 03:23 Oxygen Delivery Oxygen Delivery Room Air Medical Decision Making - Medical Records Medical records reviewed: Yes I reviewed the patient's medical records. - Lab Data Lab results reviewed: Yes I reviewed the patient's lab results. Result diagrams: 12/06/18 00:53 12/06/18 00:53 Lab Results 12/06/18 12/06/18 12/06/18 Range/Units 00:53 00:53 01:10 WBC 12.7 H (4.3-11.1) K/mcL RBC 4.63 (3.82-4.97) M/mcL Hgb 14.1 (11.5-15.4) g/dL Hct 41.5 (35.3-44.9) % MCV 89.6 (83.0-100.0) fL MCH 30.5 (28.0-33.3) pg MCHC 34.0 (31.6-35.5) g/dL RDW 12.3 (11.5-14.5) % Plt Count 265 (140-400) K/mcL MPV 9.3 L (9.4-12.4) fL Immature Gran % 0.2 (0-4) % Seg Neutrophils % 71.2 % Lymphocytes % 15.6 % Monocytes % 11.9 % Eosinophils % 0.6 % Basophils % 0.5 % Neutrophils # 9.0 H (1.6-8.9) K/mcL Lymphocytes # 2.0 (0.6-4.6) K/mcL Monocytes # 1.5 H (0.0-1.3) K/mcL Eosinophils # 0.1 (0.0-0.6) K/mcL Basophils # 0.1 (0.0-0.2) K/mcL Sodium 132 L (136-145) mEq/L Potassium 3.1 L (3.5-5.1) mEq/L Chloride 94 L (98-107) mEq/L Carbon Dioxide 20 L (23-29) mEq/L BUN 29 H (6-20) mg/dL Creatinine 1.18 (0.60-1.20) mg/dL Est GFR ( Amer) > 60 (> 60) Est GFR (Non-Af Amer) 51 L (> 60) BUN/Creatinine Ratio 25 (6-26) Glucose 53 L (70-105) mg/dL Calculated Osmolality 277 L (280-300) Calcium 9.4 (8.6-10.3) mg/dL Phosphorus 4.0 (2.7-4.5) mg/dL Magnesium 2.2 (1.6-2.6) mg/dL Total Bilirubin 1.2 H (0.3-1.0) mg/dL Direct Bilirubin 0.2 (0.0-0.2) mg/dL Indirect Bilirubin 1.0 (0.0-1.2) mg/dL AST 55 H (13-39) Units/L ALT 27 (7-52) Units/L Alkaline Phosphatase 73 (34-104) Units/L Serum Total Protein 7.9 (6.4-8.9) g/dL Albumin 4.5 (3.5-5.7) g/dL Globulin 3.4 (2.4-3.5) g/dL Albumin/Globulin Ratio 1.3 (1.1-2.2) Urine Color Dark Yellow (Yellow) Urine Clarity Cloudy A (Clear) Urine pH 5.0 (5.0-8.0) pH Units Ur Specific [place] 1.021 (1.010-1.025) Urine Protein 100 H (Neg-Trace) mg/dL Urine Glucose (UA) Normal (Normal) mg/dL Urine Ketones 15 H (Negative) mg/dL Urine Blood Large H (Negative) Urine Nitrite Negative (Negative) Urine Bilirubin Small H (Negative) Urine Urobilinogen Normal (Normal) mg/dL Ur Leukocyte Esterase Negative (Negative) Urine Microscopic RBC 5-15 H (0-3) per hpf Urine Microscopic WBC 5-15 H (0-3) per hpf Ur Squamous Epith Cells Many H (None-Few) per lpf Urine Bacteria Moderate H (None-Few) per hpf Hyaline Casts Moderate H (None-Few) per lpf Ur Culture Indicated? NO (NO) Urine Test (Negative) Urine Opiates Screen (Hiutqn=158) ng/mL Ur Barbiturates Screen (Qorwjb=499) ng/mL Ur Phencyclidine Scrn (Cutoff=25) ng/mL Ur Amphetamines Screen (Vhiyrt=8843) ng/mL U Benzodiazepines Scrn (Rpuhzn=308) ng/mL Urine Cocaine Screen (Cutoff= 300) ng/mL U Marijuana (THC) Screen (Cutoff = 50) ng/mL Ur Drug Screen Interp Ethyl Alcohol < 10 (Less than 10) mg/dL 12/06/18 12/06/18 Range/Units 01:10 01:10 WBC (4.3-11.1) K/mcL RBC (3.82-4.97) M/mcL Hgb (11.5-15.4) g/dL Hct (35.3-44.9) % MCV (83.0-100.0) fL MCH (28.0-33.3) pg MCHC (31.6-35.5) g/dL RDW (11.5-14.5) % Plt Count (140-400) K/mcL MPV (9.4-12.4) fL Immature Gran % (0-4) % Seg Neutrophils % % Lymphocytes % % Monocytes % % Eosinophils % % Basophils % % Neutrophils # (1.6-8.9) K/mcL Lymphocytes # (0.6-4.6) K/mcL Monocytes # (0.0-1.3) K/mcL Eosinophils # (0.0-0.6) K/mcL Basophils # (0.0-0.2) K/mcL Sodium (136-145) mEq/L Potassium (3.5-5.1) mEq/L Chloride (98-107) mEq/L Carbon Dioxide (23-29) mEq/L BUN (6-20) mg/dL Creatinine (0.60-1.20) mg/dL Est GFR ( Amer) (> 60) Est GFR (Non-Af Amer) (> 60) BUN/Creatinine Ratio (6-26) Glucose (70-105) mg/dL Calculated Osmolality (280-300) Calcium (8.6-10.3) mg/dL Phosphorus (2.7-4.5) mg/dL Magnesium (1.6-2.6) mg/dL Total Bilirubin (0.3-1.0) mg/dL Direct Bilirubin (0.0-0.2) mg/dL Indirect Bilirubin (0.0-1.2) mg/dL AST (13-39) Units/L ALT (7-52) Units/L Alkaline Phosphatase (34-104) Units/L Serum Total Protein (6.4-8.9) g/dL Albumin (3.5-5.7) g/dL Globulin (2.4-3.5) g/dL Albumin/Globulin Ratio (1.1-2.2) Urine Color (Yellow) Urine Clarity (Clear) Urine pH (5.0-8.0) pH Units Ur Specific [place] (1.010-1.025) Urine Protein (Neg-Trace) mg/dL Urine Glucose (UA) (Normal) mg/dL Urine Ketones (Negative) mg/dL Urine Blood (Negative) Urine Nitrite (Negative) Urine Bilirubin (Negative) Urine Urobilinogen (Normal) mg/dL Ur Leukocyte Esterase (Negative) Urine Microscopic RBC (0-3) per hpf Urine Microscopic WBC (0-3) per hpf Ur Squamous Epith Cells (None-Few) per lpf Urine Bacteria (None-Few) per hpf Hyaline Casts (None-Few) per lpf Ur Culture Indicated? (NO) Urine Test Negative (Negative) Urine Opiates Screen Negative (Njpfpj=710) ng/mL Ur Barbiturates Screen Negative (Oedblg=497) ng/mL Ur Phencyclidine Scrn Negative (Cutoff=25) ng/mL Ur Amphetamines Screen Positive H (Pkviua=7783) ng/mL U Benzodiazepines Scrn Negative (Bzzopm=768) ng/mL Urine Cocaine Screen Negative (Cutoff= 300) ng/mL U Marijuana (THC) Screen Positive H (Cutoff = 50) ng/mL Ur Drug Screen Interp See Below Ethyl Alcohol (Less than 10) mg/dL - Radiology Data Radiology results reviewed: Yes I reviewed the patient's radiology results. Chest X-Ray 12/06/18 00:12 IMPRESSION: New right apical lung opacity since 10/10/2018. Recommend further evaluation with contrast-enhanced CT chest. D/ / John Vega / John Vega Interpreting Provider: Jhon Vega - EKG Data EKG #1 EKG attestation: Yes I reviewed and interpreted this EKG. EKG results narrative: EKG shows normal sinus rhythm with ventricular rate of 92. No acute ST segment elevation or depression. No arrhythmia or ectopy. Borderline prolonged QT. Attestation Statement - Attestation Attestation: I, Amish Galvez MD, personally evaluated this patient and discussed their management with the resident physician. I reviewed the resident's note and agree with the documented findings, medical decision making, and plan of care. 38-year-old female presents to the emergency department by EMS [facility] local [facility]. Report patient has been in [facility] for about 12 hours and her condition has progressively deteriorated. Patient has a history of psychiatric issues. Also history of drug use as well as alcoholism. On arrival here patient is restless and agitated and thrashing. She has rambling speech and keeps talking about someone stalking her. Also stating that it is a big lie and they were setting her up. Patient is oriented 3 however is really unable to provide much significant history. She admits to using drugs 2 days ago. Unsure when she last drank alcohol. On examination patient is a well-developed well-nourished female. She is alert but agitated and thrashing. She appears paranoid and delusional with rambling speech. There is no cyanosis or diaphoresis. She is oriented 3. Unkempt with foul body odor. PERRLA. No evidence of head trauma. Neck is supple with full range of motion. Chest is nontender to palpation. Breath sounds are equal bilaterally. Heart regular rate and rhythm. Abdomen soft with present bowel sounds. No obvious gross focal neurological deficits. Labs reviewed. No acute changes on EKG. Chest x-ray shows a new right apical lesion and CT recommended which was ordered. Patient received IM Benadryl, Haldol, and Ativan for sedation. The hospitalist, Dr. Choe, was consulted and accepted admission of the patient.
[2018-12-06] MEDS: *HR* Heparin 5,000 UNIT/ML VIAL SQ SCH ×3 (05:41→21:44)
--- NOTE | 2018-12-06 06:33 | Internal Med History&Physical ---
Date of Encounter: 12/06/18 Time of Encounter: 06:29 Internal Medicine - H&P: HPI Chief complaint: Substance Intoxication History of present illness: Ms. Sher is a 38 year old female past medical history of bipolar depression, anxiety, alcohol abuse, alcohol withdrawal seizure, and polysubstance dependence who presented to the ED by EMS from the local residential. At the time of my assessment patient was somnolent and unable to provide a history. Per report patient has been in residential for about 12 hours where her condition progressively deteriorated. Patient has a history of psychiatric issues as well history of drug use and alcoholism. On arrival patient was restless, agitated and thrashing. She has rambling speech and keeps talking about someone stalking her. She admits to using drugs 2 days ago. Unsure when she last drank alcohol. Upon initial assessment patient was afebrile, hemodynamically stable saturating at 99% on room air. Patient had a mild leukocytosis, hypokalemia and hyponatremia. Toxicology was positive for amphetamines and marijuana. Serum alcohol level was less than 10. Chest CT demonstrated non-specific findings. Patient admitted for substance intoxication. Past Med Surg Social Fam HX - Past Medical History Medical history: hyperlipidemia, hypertension Additional medical history: alcohol abuse Psychiatric history: bipolar, depression, prior suicide attempt, previous psychiatric hospitalization - Past Surgical History Surgical History: other Additional surgical history: Leep Procedure - Social History Smoking Status: Current every day smoker Smokeless Tobacco Status: No Alcohol use: heavy, recent Drug use: marijuana, methamphetamine, IV Drug Use, prescription drug abuse - Family History Maternal Grandmother Family Member Ethnicity: Non- Living Status: Hx Family Cancer: Yes (Throat cancer) Internal Medicine - H&P: Meds Folic Acid 1 mg PO DAILY tablet 11/06/18 [Rx] Thiamine (B-1) [Vitamin B-1] 100 mg PO DAILY tablet 11/06/18 [Rx] Lurasidone [Latuda] 20 mg PO DAILY 30 Days #30 tablet 11/12/18 [Rx] Allergy/AdvReac Type Severity Reaction Status Date / Time ibuprofen [From Motrin] Allergy Swelling Verified 12/06/18 00:10 of Lip/Tongue/Throat All Systems PM: A 10-system review of systems was performed and is negative for pertinent findings except as documented above in the HPI. - Constitutional Constitutional: no chills, no fever(s), no night sweats - EENT Eyes: no change in vision, no discharge, no pain, no photophobia Ears: no ear discharge, no ear pain, no tinnitus Nose, mouth and throat: no dysphagia, no nasal discharge, no neck pain, no sore throat - Cardiovascular Cardiovascular ROS IM: no chest pain, no diaphoresis, no dyspnea, no lightheadedness, no palpitations, no syncope - Respiratory Respiratory: no cough, no dyspnea, no wheezing, no excessive phlegm production - Gastrointestinal Gastrointestinal: no abdominal pain, no diarrhea, no hematemesis, no hematochezia, no melena, no nausea, no vomiting - Genitourinary Genitourinary: no change in urinary stream, no dysuria, no flank pain, no hematuria - Musculoskeletal Musculoskeletal ROS IM: no numbness, no tingling - Integumentary Integumentary IM: no rash, no unusual bruising - Neurological Neurological ROS: no confusion, no convulsions, no focal weakness, no numbness, no tingling, no tremor(s) - Hematologic/Lymphatic Hematologic/Lymphatic: no easy bruising - Constitutional Vitals: Temp Pulse Resp BP Pulse Ox 99.1 F 77 17 116/85 99 12/06/18 00:10 12/06/18 03:23 12/06/18 03:23 12/06/18 03:23 12/06/18 04:55 Exam: General: Somnolent lying in bed asleep Skin:Normal color, no rash, no lesions. HEENT:EOM, pupils equal, round and reactive. Cardiovascular:Normal S1 & S2, no rubs, murmurs or gallops. No JVD. Pulse regular. Lungs:Normal breath sounds, no wheezes or crackles. Abdomen:Soft, non-tender, no rigidity. Extremities:No deformity, no edema or tenderness, no joint swelling or clubbing. Neurological: Somnolent. Arousable to sternal rub and falls back to sleep. Unable to assess further neurological status given patient's mental state Pulses:Carotid and radial pulses normal +2. Rest of the physical exam is non contributory Internal Med - H&P Results - Labs CBC & Chem 7: 12/06/18 08:08 12/06/18 08:08 Labs: Short CBC 12/06/18 Range/Units 00:53 WBC 12.7 H (4.3-11.1) K/mcL Hgb 14.1 (11.5-15.4) g/dL Hct 41.5 (35.3-44.9) % Plt Count 265 (140-400) K/mcL Neutrophils # 9.0 H (1.6-8.9) K/mcL BMP 12/06/18 00:53 Sodium 132 L Potassium 3.1 L Chloride 94 L Carbon Dioxide 20 L BUN 29 H Creatinine 1.18 Glucose 53 L Calcium 9.4 Liver Function 12/06/18 Range/Units 00:53 Total Bilirubin 1.2 H (0.3-1.0) mg/dL Direct Bilirubin 0.2 (0.0-0.2) mg/dL AST 55 H (13-39) Units/L ALT 27 (7-52) Units/L Alkaline Phosphatase 73 (34-104) Units/L Albumin 4.5 (3.5-5.7) g/dL Urine 12/06/18 Range/Units 01:10 Urine Color Dark Yellow (Yellow) Urine Clarity Cloudy A (Clear) Urine pH 5.0 (5.0-8.0) pH Units Ur Specific [place] 1.021 (1.010-1.025) Urine Protein 100 H (Neg-Trace) mg/dL Urine Glucose (UA) Normal (Normal) mg/dL - Impressions ITS Impressions Chest X-Ray 12/06/18 00:12 IMPRESSION: New right apical lung opacity since 10/10/2018. Recommend further evaluation with contrast-enhanced CT chest. D/ / John Vega / John Vega Interpreting Provider: John Vega Chest CT 12/06/18 04:10 IMPRESSION: Right apical subpleural ground-glass abnormality correlates with opacity on comparison chest radiograph and is indeterminate. This could represent infection, including fungal etiologies), organizing pneumonia (descriptive term for reparative lung injury), or hemorrhage, although neoplastic process not entirely excluded. Recommend follow-up imaging in 3 months to ensure resolution, unless clinically indicated earlier. D/ / John Vega / John Vega Interpreting Provider: John Vega - Assessment and plan (1) Substance intoxication Current Visit: Yes Status: Acute Assessment and plan: Patient urine toxicology positive for amphetamines and marijuana. She remains somnolent. -Continue supportive care; -One-to-one sitter -Consider psychiatry consult once patient mental status improves Qualifiers: Complication of substance-induced condition: uncomplicated Qualified Code(s): F19.920 - Other psychoactive substance use, unspecified with intoxication, uncomplicated (2) Polysubstance (excluding opioids) dependence Current Visit: No Status: Acute Assessment and plan: History of polysubstance abuse with positive urine tox for marijuana and amphetamines. -Appreciate psychiatry recommendations -client services vice president consult (3) Alcohol withdrawal Current Visit: No Status: Acute Assessment and plan: Patient at this time does not display any evidence of alcohol withdrawal however given history of alcohol withdrawal seizures, will monitor for symptoms and treat. -CIWA protocol with as needed Ativan -Banana bag -Check replete electrolytes Qualifiers: Complication of substance-induced condition: with perceptual disturbance Qualified Code(s): F10.232 - Alcohol dependence with withdrawal with perceptual disturbance (4) Altered mental status Current Visit: Yes Status: Acute Assessment and plan: Altered mental status likely secondary to substance intoxication. Qualifiers: Altered mental status type: unspecified Qualified Code(s): R41.82 - Altered mental status, unspecified (5) DVT prophylaxis Current Visit: No Status: Acute Assessment and plan: Subcutaneous heparin - Time Spent With Patient Total time spent is greater than 50% in coordination of care (as documented) at patient's floor/unit and/or counseling patient:
[2018-12-06 08:17] LABS: Basophils # 0.1 K/mcL (0.0-0.2); Basophils % 0.9 %; Eosinophils # 0.2 K/mcL (0.0-0.6); Eosinophils % 2.5 %; Hematocrit 39.4 % (35.3-44.9); Hemoglobin 13.3 g/dL (11.5-15.4); Immature Granulocytes % 0.3 % (0-4); Lymphocytes # 1.7 K/mcL (0.6-4.6); Lymphocytes % 22.2 %; Mean Corpuscular HGB Conc 33.8 g/dL (31.6-35.5); Mean Corpuscular Hemoglobin 30.4 pg (28.0-33.3); Mean Corpuscular Volume 90.2 fL (83.0-100.0); Mean Platelet Volume 9.3 fL (9.4-12.4); Neutrophils # 4.7 K/mcL (1.6-8.9); Platelet Count 230 K/mcL (140-400); Red Blood Count 4.37 M/mcL (3.82-4.97); Red Cell Distribution Width 12.5 % (11.5-14.5); Segmented Neutrophils % 61.1 %
[2018-12-06 08:37] LABS: Alanine Aminotransferase 25 Units/L (7-52); Albumin/Globulin Ratio 1.3 (1.1-2.2); Alkaline Phosphatase 67 Units/L (34-104); Aspartate Amino Transferase 51 Units/L (13-39); BUN/Creatinine Ratio 32 (6-26); Bilirubin,Total 1.3 mg/dL (0.3-1.0); Blood Urea Nitrogen 19 mg/dL (6-20); Carbon Dioxide 20 mEq/L (23-29); Chloride 103 mEq/L (98-107); Glucose 63 mg/dL (70-105); Magnesium 2.3 mg/dL (1.6-2.6); Osmolality,Calculated 274 (280-300); Potassium 3.5 mEq/L (3.5-5.1); Sodium 132 mEq/L (136-145); eGFR For Non-African Americans > 60 (> 60)
[2018-12-06] MEDS ORDERED: *HR* LORazepam 2 MG/ML VIAL IVP PRN ×3 (09:31)
--- NOTE | 2018-12-06 13:42 | Event Note ---
Date of Encounter: 12/06/18 Time of Encounter: 13:37 Patient seen and examined at bedside. Where the room the patient was sleeping, she would arouse to verbal stimuli and answers a few questions appropriately including her name and location and then become upset and refused to answer. She will move 4 extremities spontaneously. She did not appear to be a acute distress. Vital signs stable Patient somnolent but easily arousable to verbal stimuli Heart regular rate and rhythm, no murmurs, rubs, gallops Lungs clear to auscultation bilaterally, no rales, rhonchi, wheezes. Extremities multiple bruising in various stages of healing, no obvious areas of infection or bleeding Assessment and plan: #1 acute encephalopathy: Patient presented with agitation and thrashing around from [facility]. There is also paranoid thoughts that were reported. At this time patient is somnolent and will answer some questions appropriately but is also uncooperative with a full exam. Unclear if this is as a result of acute intoxication versus primary psychiatric disturbance, versus withdrawal. Patient is currently pink slipped, we will continue to monitor the patient closely and as her mental status improves evaluate her psychiatric issues, likely psych consult tomorrow. #2 polysubstance abuse: UA positive for amphetamines and marijuana, patient is also known chronic alcoholic. [facility] protocol, continue monitor for withdrawal. #3 chronic alcohol abuse: as above #4 psychiatric disturbance: Likely psych consult tomorrow #[address]: Right apical groundglass abnormality noted, possibly infectious or organizing pneumonia. Unable to gauge her symptoms and history. We will reassess when patient is able to give a more thorough history.
[2018-12-06] MEDS: Nicotine 21 MG PATCH.TD24 TD SCH (17:10)
[2018-12-06] MEDS: Thiamine (B-1) 100 MG, Folic Acid 1 MG, MVI, adult with vitamin K 10 ML in 0.9 % Sodi... IVPB SCH (17:10)
[2018-12-07 04:14] LABS: Basophils # 0.1 K/mcL (0.0-0.2); Basophils % 0.7 %; Eosinophils # 0.1 K/mcL (0.0-0.6); Hematocrit 39.9 % (35.3-44.9); Immature Granulocytes % 0.1 % (0-4); Lymphocytes # 1.4 K/mcL (0.6-4.6); Mean Corpuscular HGB Conc 32.6 g/dL (31.6-35.5); Mean Corpuscular Hemoglobin 30.4 pg (28.0-33.3); Mean Corpuscular Volume 93.4 fL (83.0-100.0); Mean Platelet Volume 9.2 fL (9.4-12.4); Monocytes # 0.8 K/mcL (0.0-1.3); Monocytes % 10.5 %; Neutrophils # 4.9 K/mcL (1.6-8.9); Platelet Count 221 K/mcL (140-400); Red Blood Count 4.27 M/mcL (3.82-4.97); Red Cell Distribution Width 12.6 % (11.5-14.5); Segmented Neutrophils % 67.7 %
[2018-12-07 04:35] LABS: BUN/Creatinine Ratio 22 (6-26); Blood Urea Nitrogen 11 mg/dL (6-20); Calcium 8.6 mg/dL (8.6-10.3); Carbon Dioxide 20 mEq/L (23-29); Chloride 106 mEq/L (98-107); Glucose 98 mg/dL (70-105); Magnesium 2.2 mg/dL (1.6-2.6); Osmolality,Calculated 279 (280-300); Potassium 3.5 mEq/L (3.5-5.1); Sodium 135 mEq/L (136-145); eGFR For Non-African Americans > 60 (> 60)
[2018-12-07] MEDS: *HR* Heparin 5,000 UNIT/ML VIAL SQ SCH ×3 (05:44→22:24)
[2018-12-07] MEDS: Nicotine 21 MG PATCH.TD24 TD SCH (11:40)
--- NOTE | 2018-12-07 14:20 | Internal Med Progress Note ---
Hospitalist Progress Note - Encounter Date of Encounter: 12/07/18 Time of Encounter: 14:17 - Subjective Interval History: Patient seen and examined at bedside. Patient would wake up to verbal stimuli Andra questions she stated she would not tell me anything. She did deny suicidal or homicidal thoughts but otherwise would not cooperate with the exam. - Exam Vitals: Temp Pulse Resp BP Pulse Ox 98.4 F 104 17 114/86 97 12/07/18 10:54 12/07/18 10:54 12/07/18 10:54 12/07/18 10:54 12/07/18 10:54 Exam: Generally: Alert and oriented 3, no acute distress, Heart regular rate and rhythm, no murmurs, rubs, gallops Lungs: Clear to auscultation bilaterally, no rales, rhonchi, wheezes Psych: Patient was somnolent but easily arousable. She would speak in short sentences and states that she would not talk to me. She kept saying she did not want to talk about what brought her here. She did deny suicidal or homicidal ideation. - Assessment and Plan (1) Altered mental status Current Visit: Yes Status: Acute Assessment and Plan: Altered mental status has resolved however patient continues to have psychiatric disturbance. She will not talk to me or give me insight as to what brought her here when she was feeling. Patient remains pink slipped at this time, psych consult pending. (2) Polysubstance (excluding opioids) dependence Current Visit: No Status: Acute Assessment and Plan: Urine drug screen positive for marijuana and amphetamines. Long history of drug abuse. (3) Alcohol withdrawal Current Visit: No Status: Acute Assessment and Plan: No evidence of withdrawal, on CIWA protocol. Continue to monitor and treat as necessary. (4) Substance intoxication Current Visit: Yes Status: Resolved (5) DVT prophylaxis Current Visit: No Status: Acute Assessment and Plan: Subcutaneous heparin - Time Spent with Patient Total time spent is greater than 50% in coordination of care (as documented) at patient's floor/unit and/or counseling patient: Internal Medicine: Result - Labs CBC & Chem 7: 12/07/18 04:05 12/07/18 04:05 Labs: Short CBC 12/07/18 Range/Units 04:05 WBC 7.2 (4.3-11.1) K/mcL Hgb 13.0 (11.5-15.4) g/dL Hct 39.9 (35.3-44.9) % Plt Count 221 (140-400) K/mcL Neutrophils # 4.9 (1.6-8.9) K/mcL BMP 12/07/18 04:05 Sodium 135 L Potassium 3.5 Chloride 106 Carbon Dioxide 20 L BUN 11 Creatinine 0.51 L Glucose 98 Calcium 8.6 Consult Discharge Plan - Plan Referrals: NONE,PCP [Primary Care Provider] - (1) Altered mental status Qualifiers: Altered mental status type: unspecified Qualified Code(s): R41.82 - Altered mental status, unspecified (3) Alcohol withdrawal Qualifiers: Complication of substance-induced condition: with perceptual disturbance Qualified Code(s): F10.232 - Alcohol dependence with withdrawal with perceptual disturbance (4) Substance intoxication Qualifiers: Complication of substance-induced condition: uncomplicated Qualified Code(s): F19.920 - Other psychoactive substance use, unspecified with intoxication, uncomplicated
[2018-12-07] MEDS ORDERED: Acetaminophen 325 MG TABLET PO PRN (14:49)
--- NOTE | 2018-12-07 16:06 | Electrocardiograph Report ---
[address] [address] Test Date: 2018-12-06 Pat Name: Domi Sher Department: [id number] Room: [facility] Gender: F [employer] Driver: : 1980 Requested By: Mango Fung Order Number: [id number] Reading MD: Lou Wild Measurements Intervals [place] Rate: 92 P: 70 [place]: 143 QRS: 67 QRSD: 94 T: 53 QT: 383 QTc: 474 Interpretive Statements Sinus rhythm Probable left atrial enlargement Borderline prolonged QT interval Electronically Signed On 12-07-2018 16:04:44 EST by Lou Wild
[2018-12-07] MEDS: Thiamine (B-1) 100 MG, Folic Acid 1 MG, MVI, adult with vitamin K 10 ML in 0.9 % Sodi... IVPB SCH (17:21)
[2018-12-07] MEDS ORDERED: metroNIDAZOLE 500 MG TABLET PO ONE (18:10)
[2018-12-07] MEDS ORDERED: Fluconazole 100 MG TABLET PO ONE (18:13)
--- NOTE | 2018-12-07 19:53 | Consult Note ---
Date of Encounter: 12/07/18 Time of Encounter: 19:00 Assessment & Recommendation (1) Amphetamine use disorder, severe Current visit: Yes Status: Acute (2) Substance abuse Current visit: Yes Status: Acute (3) Alcohol withdrawal Current visit: No Status: Acute Qualifiers: Complication of substance-induced condition: with perceptual disturbance Qualified Code(s): F10.232 - Alcohol dependence with withdrawal with perceptual disturbance (4) Bipolar disorder with depression Current visit: No Status: Acute History of Present Illness Requesting Physician: Colton Sullivan, Reason for consult: Methamphetamine use D/O History of present illness: Pt is a 38 yo, , female, never , with 2 children (18 with sister,6 with CPS) who presents for bipolar Depression methamphetamine use D/O severe and alcohol use D/O severe to the emergency department. Pt noted "I am doing much better now." Pt noted she felt safe and comfortable on the unit. Pt was in agreement with treatment plan. Pt noted that she is doing pretty good today. Pt noted she slept "about 5 hours broken last night. Pt noted her appetite is okay. Pt rated her depression a 5, on a scale of zero to ten with ten being the worst and zero being none. Pt rate her anxiety a 5, on the same scale. Pt denied any current visual or auditory hallucinations. Pt denied any thoughts to harm herself or anyone else. PT agreed to continue lurasidone for medication management of Bipolar D/O. Pt was educated on the risks benefits and side-effects of these medications including no medication, pt was in agreement. 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 Pt denied any hx of HIV or Hep C. No TD noted, AIMS=0 Tobacco: 1ppd Alcohol: she has been drinking 1 liter of vodka per day for the past [address]: Methamphetamine use D/O Caffeine: Denies 1.Interval hx 2.Continue current medications 3.Review current labs 4.Pt had an opportunity to ask questions and discuss current treatment plan. 5.Supportive therapy was provided 6.Pt encouraged to consider group or individual therapy 7.Pt was in agreement with treatment plan. 8.Pt was educated on the risks benefits and side effects of current medications. 9.Pt psychatriclly cleared for D/C once medically stable. CC: Colton Sullivan, Past Med Surg Social Fam HX - Past Medical History Medical history: hyperlipidemia, hypertension - Past Psychiatric History Psychiatric history: Reports: bipolar, prior suicide attempt, previous psychiatric hospitalization Family psychiatric history: Yes Family History of Suicide: Attempted - Past Surgical History Surgical History: other - Social History Smoking Status: Current every day smoker Smokeless Tobacco Status: No Alcohol use: heavy, recent Drug use: marijuana, methamphetamine, IV Drug Use, prescription drug abuse - Family History Maternal Grandmother Family Member Ethnicity: Non- Living Status: Hx Family Cancer: Yes (Throat cancer) Medications & Allergies Folic Acid 1 mg PO DAILY tablet 11/06/18 [Rx] Thiamine (B-1) [Vitamin B-1] 100 mg PO DAILY tablet 11/06/18 [Rx] Lurasidone [Latuda] 20 mg PO DAILY 30 Days #30 tablet 11/12/18 [Rx] Allergy/AdvReac Type Severity Reaction Status Date / Time ibuprofen [From Motrin] Allergy Swelling Verified 12/06/18 00:10 of Lip/Tongue/Throat Review of Systems Constitutional: Denies: fever, chills, weakness, weight change Eyes: Denies: eye pain, vision change Ears, Nose, Throat: Denies: ear pain, throat pain, dental pain, hearing loss, congestion Cardiovascular: Denies: chest pain, palpitations, dyspnea on exertion Respiratory: Denies: cough, dyspnea, wheezes Gastrointestinal: Denies: abdominal pain, nausea, vomiting, diarrhea, constipation Genitourinary female: Denies: urgency, dysuria, frequency, abnormal menses, dyspareunia Musculoskeletal: Denies: joint swelling, joint pain Integumentary: Denies: rash, lesions, pruritus Neurological: Denies: headache, weakness, numbness, memory loss Psychiatric: Reports: depression, other (Polysubstance use D/O) Endocrine: Denies: fatigue, heat or cold intolerance Hematologic/Lymphatic: Denies: easy bruising, lymphadenopathy Allergic/Immunologic: Denies: urticaria, itchy eyes Psychiatry Exam - Constitutional Vitals: Temp Pulse Resp BP Pulse Ox 98.0 F 80 12 123/91 97 12/07/18 19:13 12/07/18 19:13 12/07/18 19:13 12/07/18 19:13 12/07/18 19:13 General appearance: age & developmentally appropriate, well-groomed, well- nourished - Musculoskeletal Gait: normal Station: relaxed Strength & Tone: normal for patient - Psychiatric Patient Orientation: Yes Person, Yes Time, Yes Place Level of alertness: Alert Behavior: calm, cooperative Psychomotor activity: Normal Eye Contact: Maintains Eye Contact Mood Description: Euthymic/stable Affect description: congruent with mood, full range Speech Volume: Normal Speech pattern: normal rate, normal rhythm, normal tone, fluent, spontaneous Language & Vocabulary: consistent with education Thought Process: Linear, Goal Oriented Thought Content: No Suicidal ideation, No Homicidal ideation, No Overt delusions Perceptual Disturbances: No Auditory hallucinations, No Visual hallucinations Attention Span Ability: Capable of Focused Attention Memory Description: Grossly Intact Patient Reliability: Reliable Historian Fund of knowledge: Yes abstraction ability, Yes aware of current events Intelligence Estimate: Average Judgment: Limited Insight: Partial Results - Labs Labs: Laboratory Last Values WBC 7.2 K/mcL (4.3-11.1) 12/07/18 04:05 RBC 4.27 M/mcL (3.82-4.97) 12/07/18 04:05 Hgb 13.0 g/dL (11.5-15.4) 12/07/18 04:05 Hct 39.9 % (35.3-44.9) 12/07/18 04:05 MCV 93.4 fL (83.0-100.0) 12/07/18 04:05 MCH 30.4 pg (28.0-33.3) 12/07/18 04:05 MCHC 32.6 g/dL (31.6-35.5) 12/07/18 04:05 RDW 12.6 % (11.5-14.5) 12/07/18 04:05 Plt Count 221 K/mcL (140-400) 12/07/18 04:05 MPV 9.2 fL (9.4-12.4) L 12/07/18 04:05 Immature Gran % 0.1 % (0-4) 12/07/18 04:05 Seg Neutrophils % 67.7 % 12/07/18 04:05 Lymphocytes % 19.0 % 12/07/18 04:05 Monocytes % 10.5 % 12/07/18 04:05 Eosinophils % 2.0 % 12/07/18 04:05 Basophils % 0.7 % 12/07/18 04:05 Neutrophils # 4.9 K/mcL (1.6-8.9) 12/07/18 04:05 Lymphocytes # 1.4 K/mcL (0.6-4.6) 12/07/18 04:05 Monocytes # 0.8 K/mcL (0.0-1.3) 12/07/18 04:05 Eosinophils # 0.1 K/mcL (0.0-0.6) 12/07/18 04:05 Basophils # 0.1 K/mcL (0.0-0.2) 12/07/18 04:05 Sodium 135 mEq/L (136-145) L 12/07/18 04:05 Potassium 3.5 mEq/L (3.5-5.1) 12/07/18 04:05 Chloride 106 mEq/L (98-107) 12/07/18 04:05 Carbon Dioxide 20 mEq/L (23-29) L 12/07/18 04:05 BUN 11 mg/dL (6-20) 12/07/18 04:05 Creatinine 0.51 mg/dL (0.60-1.20) L 12/07/18 04:05 Est GFR ( Amer) > 60 (> 60) 12/07/18 04:05 Est GFR (Non-Af Amer) > 60 (> 60) 12/07/18 04:05 BUN/Creatinine Ratio 22 (6-26) 12/07/18 04:05 Glucose 98 mg/dL (70-105) 12/07/18 04:05 POC Glucose 100 mg/dL (70-99) H 12/06/18 20:22 Calculated Osmolality 279 (280-300) L 12/07/18 04:05 Calcium 8.6 mg/dL (8.6-10.3) 12/07/18 04:05 Phosphorus 3.0 mg/dL (2.7-4.5) 12/06/18 08:08 Magnesium 2.2 mg/dL (1.6-2.6) 12/07/18 04:05 Total Bilirubin 1.3 mg/dL (0.3-1.0) H 12/06/18 08:08 Direct Bilirubin 0.2 mg/dL (0.0-0.2) 12/06/18 00:53 Indirect Bilirubin 1.0 mg/dL (0.0-1.2) 12/06/18 00:53 AST 51 Units/L (13-39) H 12/06/18 08:08 ALT 25 Units/L (7-52) 12/06/18 08:08 Alkaline Phosphatase 67 Units/L (34-104) 12/06/18 08:08 Serum Total Protein 7.0 g/dL (6.4-8.9) 12/06/18 08:08 Albumin 4.0 g/dL (3.5-5.7) 12/06/18 08:08 Globulin 3.0 g/dL (2.4-3.5) 12/06/18 08:08 Albumin/Globulin Ratio 1.3 (1.1-2.2) 12/06/18 08:08 Urine Color Dark Yellow (Yellow) 12/06/18 01:10 Urine Clarity Cloudy (Clear) A 12/06/18 01:10 Urine pH 5.0 pH Units (5.0-8.0) 12/06/18 01:10 Ur Specific [place] 1.021 (1.010-1.025) 12/06/18 01:10 Urine Protein 100 mg/dL (Neg-Trace) H 12/06/18 01:10 Urine Glucose (UA) Normal mg/dL (Normal) 12/06/18 01:10 Urine Ketones 15 mg/dL (Negative) H 12/06/18 01:10 Urine Blood Large (Negative) H 12/06/18 01:10 Urine Nitrite Negative (Negative) 12/06/18 01:10 Urine Bilirubin Small (Negative) H 12/06/18 01:10 Urine Urobilinogen Normal mg/dL (Normal) 12/06/18 01:10 Ur Leukocyte Esterase Negative (Negative) 12/06/18 01:10 Urine Microscopic RBC 5-15 per hpf (0-3) H 12/06/18 01:10 Urine Microscopic WBC 5-15 per hpf (0-3) H 12/06/18 01:10 Ur Squamous Epith Cells Many per lpf (None-Few) H 12/06/18 01:10 Urine Bacteria Moderate per hpf (None-Few) H 12/06/18 01:10 Hyaline Casts Moderate per lpf (None-Few) H 12/06/18 01:10 Ur Culture Indicated? NO (NO) 12/06/18 01:10 Urine Test Negative (Negative) 12/06/18 01:10 Urine Opiates Screen Negative ng/mL (Qmzrwd=778) 12/06/18 01:10 Ur Barbiturates Screen Negative ng/mL (Kwmstq=227) 12/06/18 01:10 Ur Phencyclidine Scrn Negative ng/mL (Cutoff=25) 12/06/18 01:10 Ur Amphetamines Screen Positive ng/mL (Jfklnf=1949) H 12/06/18 01:10 U Benzodiazepines Scrn Negative ng/mL (Jgcviq=266) 12/06/18 01:10 Urine Cocaine Screen Negative ng/mL (Cutoff= 300) 12/06/18 01:10 U Marijuana (THC) Screen Positive ng/mL (Cutoff = 50) H 12/06/18 01:10 Ur Drug Screen Interp See Below 12/06/18 01:10 Ethyl Alcohol < 10 mg/dL (Less than 10) 12/06/18 00:53 Consult Discharge Plan - Plan Additional Instructions: Pt psychatriclly cleared for D/C once medically stable and sober. Referrals: NONE,PCP [Primary Care Provider] -
[2018-12-07 22:11] LABS: Chlamydia Trachomatis DNA Ur NOT DETECTED (Not Detect)
[2018-12-08] MEDS: *HR* Heparin 5,000 UNIT/ML VIAL SQ SCH (04:56)
[2018-12-08 06:33] VITALS: BP 140/105
--- NOTE | 2018-12-08 08:08 | Discharge Summary ---
- NOTES TO OUTPATIENT PROVIDER Notes to Outpatient Provider: Recommend substance abuse cessation and continue outpatient psychiatric follow-up. Date of Encounter: 12/08/18 Time of Encounter: 08:06 - Discharge Diagnosis (1) Altered mental status Priority: Primary Status: Resolved Qualifiers: Altered mental status type: unspecified Qualified Code(s): R41.82 - Altered mental status, unspecified (2) Polysubstance (excluding opioids) dependence Priority: Primary Status: Chronic (3) Alcohol withdrawal Priority: Secondary Status: Ruled-out Qualifiers: Complication of substance-induced condition: with perceptual disturbance Qualified Code(s): F10.232 - Alcohol dependence with withdrawal with perceptual disturbance (4) Substance intoxication Priority: Secondary Status: Resolved Qualifiers: Complication of substance-induced condition: uncomplicated Qualified Code(s): F19.920 - Other psychoactive substance use, unspecified with intoxication, uncomplicated (5) Vaginal odor Priority: Primary Status: Resolved Hospital course: Ms. Sher is a 38 year old female with history of polysubstance abuse and psychiatric disturbances who presented with altered mental status. Patient was apparently brought in by law-enforcement due to agitation and confusion. Patient then became somnolent and slept for the next 24-36 hours. There is concern for paranoia and hallucinations therefore patient was pink slipped. Agitation and altered mental status resolved and therefore psychiatry was consulted who evaluated the patient and did not feel that she needed inpatient psychiatric treatment. On the day of discharge her spoke with the patient who stated she wanted to go home and was generally upset with her stay and would not elaborate much further. She did deny suicidal or homicidal ideations. Of note on the day prior to discharge the patient complained of vaginal odor, GC and chlamydia were checked which were negative and patient was treated empirically with a one-time dose of Diflucan and Flagyl. Patient will be discharged home in stable condition. She was encouraged to continue psychiatric follow-up and abst ain from illicit substances and cigarettes. Discharge discussed with: patient - Time Spent with Patient Total time spent providing and/or coordinating discharge services: - Discharge Medications Home Medications: Folic Acid 1 mg PO DAILY tablet 11/06/18 [Rx] Thiamine (B-1) [Vitamin B-1] 100 mg PO DAILY tablet 11/06/18 [Rx] Lurasidone [Latuda] 20 mg PO DAILY 30 Days #30 tablet 11/12/18 [Rx] Allergies/Adverse Reactions: Allergy/AdvReac Type Severity Reaction Status Date / Time ibuprofen [From Motrin] Allergy Swelling Verified 12/06/18 00:10 of Lip/Tongue/Throat Date of admission: 12/07/18 14:15 Primary care physician: PCP NONE Consults: 12/06/18 05:20 Consult to [employer] [CONS] Routine Reason for SW Consult: [place] 12/07/18 09:48 Consult to Psychiatry [CONS] Routine Consulting Provider: Psychiatry [place] Reason consult: [place] on chart [place] initiated date and time: 12/06/18 approx 4am Time Notified: 09:51 Call Completed: Yes Discharging clinician: Colton Sullivan Anticipated date of discharge: 12/08/18 - Constitutional Vitals: Temp Pulse Resp BP Pulse Ox 98.6 F 97 17 140/105 98 12/08/18 06:31 12/08/18 06:31 12/08/18 06:31 12/08/18 06:31 12/08/18 06:31 General appearance: Present: A&O X 3, no acute distress Exam: . - Respiratory Respiratory exam: Present: CTAB. Absent: rales, rhonchi, wheezes - Cardiovascular Cardiovascular exam: Present: RRR. Absent: gallop, rubs, systolic murmur - GI/Abdominal GI/Abdominal exam: Present: normal bowel sounds, soft. Absent: distended, tenderness - Extremities Exam Extremities exam: Present: warm. Absent: pedal edema, tenderness - Psychiatric Psychiatric exam: Absent: homicidal ideation, suicidal ideation Additional comments: Patient does not appear anxious today in participating in the exam and would not answer questions appropriately although it appeared that she has the mental capacity to do so - Patient Status Disposition: Home, Self-Care Condition: Fair Functional capacity at discharge: independent ambulation Overall status at discharge: patient is progressing back to baseline - Discharge Instructions Follow Up With: NONE,PCP [Primary Care Provider] - (1 week) Additional Instructions: Please establish with PCP within one week Please resume your home medications Please abstain from illicit substances and cigarettes Please return for any new or worsening symptoms. - Diet and Activity Activity: increase activity as tolerated Diet: advance to your usual diet
== END 2018-12-08 10:41 | disposition home or self-care (01) | DRG 897 ==
LOC: 3NENU 00:03 → EMEROOARM 00:03 → SUATTDRO 03:22 → 2SOUTHHOLD 03:45
PROVIDERS: ADMIT Internal Medicine; ATTEND Internal Medicine